=== PATIENT | female | born 1990 | race Caucasian/White ===

== ENCOUNTER 2020-03-01 08:30 | Outpatient (CLI) | payer OTHER, SELFPAY ==
--- NOTE | 2020-03-03 08:27 | WPDHOLTEREM ---
Holter/Event Monitor Holter/Event Monitor Date of procedure: 03/01/20 Procedure Type: 24 hour holter monitor Indications: Chest pain Conclusion: 1. 24 hour holter monitor on 03/01/20. 2. Underlying rhythm is sinus rhythm. HR range 55-160 bpm; average HR 88 bpm. 3. No premature supraventricular complexes. No supraventricular tachycardia. 4. No premature ventricular complex. No ventricular tachycardia. 5. No sinioatrial or atrioventricular blocks. No significant pauses greater than 2 seconds. 6. No symptoms available for correlation.
== END 2020-03-01 08:31 | disposition home or self-care (01) ==
PROVIDERS: PCP Nurse Practitioner Family; Visit Provider Nurse Practitioner Family
DX: R07.9 Chest pain, unspecified (principal)
CPT/HCPCS: 93225; 93226

== ENCOUNTER 2020-03-23 08:57 | Outpatient (CLI) | payer OTHER, SELFPAY ==
[2020-03-23 09:08] LABS: Add Urine Microscopic? YES; Appearance Urine Clear (Clear); Bilirubin Urine Negative (Negative); Blood Urine 2+ (Negative); Color Urine Yellow (Yellow); Glucose Urine UA Negative (Negative); Ketones Urine Negative (Negative); Leukocyte Esterase Ur Negative LEU/UL (Negative); Nitrate Urine Negative (Negative); Protein Urine Negative (Negative); Specific Grav Ur 1.025 (1.010-1.020); Urobilinogen Urine 0.2 mg/dL (0.2-1.0)
[2020-03-23 09:13] LABS: Squamous Epithelial Cell Urine Moderate /hpf (Few); WBC Urine 0-3 /hpf (0-3)
[2020-03-23 09:14] LABS: Bacteria Urine Trace /hpf
== END 2020-03-23 08:58 | disposition home or self-care (01) ==
LOC: CHSLAB 08:59
PROVIDERS: PCP Nurse Practitioner Family; Visit Provider Obstetrics & Gynecology
DX: R30.9 Painful micturition, unspecified (principal)
CPT/HCPCS: 81001

== ENCOUNTER 2020-03-29 10:18 | Outpatient (CLI) | payer OTHER, SELFPAY ==
[2020-03-29 21:13] LABS: SARS-CoV-2 RNA PCR Positive
== END 2020-03-29 10:19 | disposition home or self-care (01) ==
PROVIDERS: PCP Nurse Practitioner Family; Visit Provider Nurse Practitioner Family
DX: U07.1 COVID-19 (principal); R05 Cough
CPT/HCPCS: 87635; C9803; U0003

== ENCOUNTER 2020-04-16 10:39 | Outpatient (CLI) | payer OTHER, SELFPAY ==
[2020-04-16 11:06] LABS: Appearance Urine Clear (Clear); Bilirubin Urine Negative (Negative); Color Urine Yellow (Yellow); Glucose Urine UA Negative (Negative); Ketones Urine Negative (Negative); Leukocyte Esterase Ur Negative LEU/UL (Negative); Nitrate Urine Negative (Negative); Protein Urine Negative (Negative); Urobilinogen Urine 0.2 mg/dL (0.2-1.0)
[2020-04-16 11:13] LABS: Add Urine Microscopic? YES; Blood Urine Trace-Intact (Negative)
[2020-04-16 11:14] LABS: Bacteria Urine Trace /hpf; RBC Urine 0-2 /hpf (0-2); Squamous Epithelial Cell Urine Rare /hpf (Few); WBC Urine None seen /hpf (0-3)
== END 2020-04-16 10:40 | disposition home or self-care (01) ==
LOC: CHSLAB 10:43
PROVIDERS: PCP Nurse Practitioner Family; Visit Provider Obstetrics & Gynecology
DX: N39.0 Urinary tract infection, site not specified (principal)
CPT/HCPCS: 81001

== ENCOUNTER 2021-06-13 12:46 | Outpatient (CLI) | payer OTHER, SELFPAY ==
[2021-06-13 13:50] LABS: Influenza A QL RT-PCR Negative (Negative); Influenza B QL RT-PCR Negative (Negative); SARS-CoV-2 RNA PCR Negative (Negative)
== END 2021-06-13 12:47 | disposition home or self-care (01) ==
LOC: CHSLAB 12:48
PROVIDERS: PCP Nurse Practitioner Family; Visit Provider Nurse Practitioner Family
DX: R05.9 Cough, unspecified (principal); Z20.822 Contact with and (suspected) exposure to COVID-19
CPT/HCPCS: 87502; C9803; U0003; U0005

== ENCOUNTER 2021-09-26 12:54 | Outpatient (CLI) | payer OTHER, SELFPAY ==
[2021-09-26 14:01] LABS: HIV 1 P24 AG Negative (Negative); HIV 1/2 AB Negative (Negative)
[2021-09-28 15:00] LABS: RPR Screen Non-Reactive (Non-Reactive)
[2021-09-29 17:40] LABS: HSV 1 IgM Screen Negative (Negative); HSV 2 IgM Screen Negative (Negative)
[2021-09-29 19:54] LABS: Hepatitis B Surface Antigen Nonreactive (Nonreactive); Hepatitis C Signal to Cutoff 0.01 ratio (<1.00); Hepatitis C Virus Antibody Nonreactive (Nonreactive)
== END 2021-09-26 12:55 | disposition home or self-care (01) ==
LOC: CHSLAB 12:56
PROVIDERS: PCP Nurse Practitioner Family; Visit Provider Obstetrics & Gynecology
DX: A64 Unspecified sexually transmitted disease (principal)
CPT/HCPCS: 36415; 86592; 86695; 86696; 86703

== ENCOUNTER 2021-10-07 14:29 | Outpatient (CLI) | payer OTHER, SELFPAY ==
[2021-10-07 15:21] LABS: SARS-CoV-2 RNA PCR Negative (Negative)
== END 2021-10-07 14:30 | disposition home or self-care (01) ==
LOC: CHSLAB 14:31
PROVIDERS: PCP Nurse Practitioner Family; Visit Provider Nurse Practitioner Family
DX: R09.81 Nasal congestion (principal); Z20.822 Contact with and (suspected) exposure to COVID-19
CPT/HCPCS: C9803; U0003; U0005

== ENCOUNTER 2021-10-17 14:35 | Outpatient (CLI) | payer OTHER, SELFPAY | END 2021-10-17 14:36 | disposition home or self-care (01) | LOC: CHSLAB 14:37 | PROVIDERS: PCP Nurse Practitioner Family; Visit Provider Obstetrics & Gynecology | DX: Z11.3 Encounter for screening for infections with a predominantly sexual mode of transmission (principal) | CPT/HCPCS: 87491; 87591; 87661 ==

== ENCOUNTER 2022-04-03 11:15 | Outpatient (CLI) | payer OTHER, SELFPAY ==
[2022-04-03 11:29] LABS: Appearance Urine Clear (Clear); Bilirubin Urine Negative (Negative); Blood Urine 2+ (Negative); Glucose Urine UA Negative (Negative); Ketones Urine Negative (Negative); Leukocyte Esterase Ur 2+ (Negative); Nitrate Urine Positive (Negative); Protein Urine Negative (Negative); Specific Grav Ur <= 1.005 (1.010-1.020); Urobilinogen Urine 0.2 mg/dL (0.2-1.0); pH Urine 6.5 (5.0-8.0)
[2022-04-03 11:37] LABS: Add Urine Microscopic? YES; Bacteria Urine 3+ /hpf; Color Urine Light Yellow (Yellow); Squamous Epithelial Cell Urine Few /hpf (Few)
== END 2022-04-03 11:16 | disposition home or self-care (01) ==
PROVIDERS: PCP Family Medicine; Visit Provider Family Medicine
DX: M54.50 Low back pain, unspecified (principal)
CPT/HCPCS: 81001; 87077; 87086; 87088; 87186

== ENCOUNTER 2022-04-05 09:38 | Outpatient (CLI) | payer OTHER, SELFPAY ==
[2022-04-05 10:07] VITALS: BMI 25.7
[2022-04-05 10:14] VITALS: BP 106/64; PULSE 87; RESP 18; TEMP 36.4; O2SAT 100
[2022-04-05 10:21] LABS: Hematocrit 38.2 % (35.0-49.0); Hemoglobin 12.7 g/dL (12.0-15.0); Mean Corpuscular HGB Conc 33.2 g/dL (32.0-36.0); Mean Corpuscular Hemoglobin 29.5 pg (27.0-31.0); Mean Corpuscular Volume 88.8 fL (78.0-102.0); Mean Platelet Volume 9.7 fl (9.2-11.8); Platelet Count Result 396 K/mm3 (150-420); Red Cell Distribution Width 11.9 % (11.6-14.4); White Blood Count 5.3 K/mm3 (4.8-10.8)
[2022-04-05] MEDS: SODIUM CHLORIDE 0.9% IV 1,000 ML 1000 ML IVPB ×2 (10:30→11:31)
[2022-04-05 10:40] LABS: Lactic Acid 1.2 mmol/L (0.4-2.0)
--- NOTE | 2022-04-05 10:54 | PC.NURSE ---
Patient here for 2 L NS IV and IV Rocephin for pyelonephritis. Education given. No concerns. IV NS 1000 ml/hr started. IV Rocephin IV administered. SEE AUG.
--- NOTE | 2022-04-05 10:56 | PC.NURSE ---
Patient reports being nauseated and did have emesis. Call to Dr. Leyva. Awaiting return call from him.
[2022-04-05 11:02] LABS: Alanine Aminotransferase 21 U/L (14-59); Albumin Level 3.5 g/dL (3.4-5.0); Alkaline Phosphatase 28 U/L (46-116); Anion Gap 7 mmol/L (8-16); Aspartate Amino Transferase 13 U/L (15-37); Bilirubin,Total 0.3 mg/dL (0.00-1.00); Blood Urea Nitrogen 7 mg/dL (7-18); Calcium 8.8 mg/dL (8.5-10.1); Carbon Dioxide 30 mmol/L (21-32); Chloride 103 mmol/L (98-108); Estimated CRCL calculation 79 ml/min; Estimated Glomerular Filt Rate > 60; Glucose 90 mg/dL (70-99); Osmolality Calculated 288 mOsm/kg (285-295); Potassium 4.5 mmol/L (3.5-5.1); Sodium 140 mmol/L (136-145); Total Protein 7.1 g/dL (6.4-8.2)
[2022-04-05] MEDS: ONDANSETRON INJ 4 MG/2 ML VIAL IV PUSH (11:11)
--- NOTE | 2022-04-05 11:11 | PC.NURSE ---
Return call from Dr. Leyva. Zofran 4 mg IVP x1 ordered and administered. See Aug.
--- NOTE | 2022-04-05 12:50 | PC.NURSE ---
Nausea subsided. Was able to eat crackles with chicken noddle soup.
--- NOTE | 2022-04-05 13:37 | PC.NURSE ---
Tolerated lunch and treatment well. Reports she feels better. Safe exit of hospital. Will returning to Dr. Leyva's office for follow up.
== END 2022-04-05 09:39 | disposition home or self-care (01) ==
PROVIDERS: PCP Family Medicine; Visit Provider Family Medicine
DX: N12 Tubulo-interstitial nephritis, not specified as acute or chronic (principal); M54.50 Low back pain, unspecified
CPT/HCPCS: 36415; 80053; 83605; 85027; 87040; 96360; 96361; 96365; 96375; J0696

== ENCOUNTER 2023-01-08 10:30 | Outpatient (CLI) | payer OTHER, SELFPAY ==
--- NOTE | ~2023-01-08 | XR_ITS ---
AP and lateral views of the right hip Clinical history: Pain Findings: No acute fracture or dislocation is seen. Osseous alignment is anatomic. The right hip join t and right SI joint are preserved. Soft tissues are unremarkable. IUD in place. Impression: No significant abnormality is seen. Reviewed, dictated and finalized at location . Impression: No significant abnormality is seen.
[2023-01-08 11:23] LABS: Alanine Aminotransferase 14 U/L (14-59); Alkaline Phosphatase 28 U/L (46-116); Anion Gap 10 mmol/L (8-16); Aspartate Amino Transferase 20 U/L (15-37); Bilirubin,Total 0.6 mg/dL (0.00-1.00); Blood Urea Nitrogen 8 mg/dL (7-18); Carbon Dioxide 28 mmol/L (21-32); Chloride 104 mmol/L (98-108); Estimated Glomerular Filt Rate > 60; Free T4 Free Thyroxine 0.92 ng/dL (0.76-1.46); Glucose 100 mg/dL (70-99); Osmolality Calculated 292 mOsm/kg (285-295); Potassium 4.1 mmol/L (3.5-5.1); Sodium 142 mmol/L (136-145); Total Protein 7.1 g/dL (6.4-8.2)
== END 2023-01-08 10:31 | disposition home or self-care (01) ==
LOC: CHSLAB 10:32
PROVIDERS: PCP Nurse Practitioner Family; Visit Provider Nurse Practitioner Family
DX: R53.83 Other fatigue (principal); M25.559 Pain in unspecified hip
CPT/HCPCS: 36415; 73502; 80053; 84439; 84443

== ENCOUNTER 2023-03-19 12:49 | Outpatient (CLI) | payer OTHER, SELFPAY ==
[2023-03-19 13:49] LABS: Influenza A QL RT-PCR Negative (Negative); Influenza B QL RT-PCR Negative (Negative); SARS-CoV-2 RNA PCR Positive (Negative)
== END 2023-03-19 12:50 | disposition home or self-care (01) ==
LOC: CHSLAB 12:51
PROVIDERS: PCP Nurse Practitioner Family; Visit Provider Nurse Practitioner Family
DX: R05.9 Cough, unspecified (principal); R09.89 Other specified symptoms and signs involving the circulatory and respiratory systems
CPT/HCPCS: 87636

== ENCOUNTER 2025-03-26 15:07 | Outpatient (CLI) | payer OTHER, SELFPAY ==
--- OUTSIDE RECORDS SUMMARY | 2024-12-23 06:45 | XMS_ITS ---
Author Organization [facility] As [employer] [facility] Address [facility] [address] [address] Care Team Providers Care Heating And Ventilating Tender Name Role Phone Bhavik Su Unavailable [phone] REASON FOR VISIT Follow Up Social History Sex Assigned At : Social History Observation Description Sex Assigned At Female Encounters Encounter Location Date Provider Diagnosis [facility] [employer] [facility] [place] [address] [address] [address] 12/23/2024 Bhavik Su Plan Of Treatment No Information Progress Notes * [place] MCKEONSTANOB:1990 (34 yo F)Acc No.[id number]:12/23/2024 Patient: THUAN ROONEY Provider: LENCHO CARRILLO :1990 A ge:34 Y S ex:Female Date:12/23/2024 Phone: Address:[address] [place], [place] [phone] Subjective: * Chief Complaints: * F ollow Up Billing Information: * Procedure Codes: * Electronic signature of LENCHO Sims on 03/26/2025 at 05:23 PM CDT Sign off status: Pending * Provider: LENCHO CARRILLO Date: 12/23/2024 Generated for Jonah lombardo/Trini/eTransmitting on: 0 03/26/2025 05:23 PM CDT
--- OUTSIDE RECORDS SUMMARY | 2025-02-02 11:15 | XMS_ITS ---
Author Organization [facility] As [employer] [facility] Address [facility] [address] [address] Care Team Providers Care Assistant Director Of Plant Operations Name Role Phone Bhavik Su Unavailable [phone] REASON FOR VISIT follow up Social History Sex Assigned At : Social History Observation Description Sex Assigned At Female Encounters Encounter Location Date Provider Diagnosis [facility] [place] [address] [address] [address] 02/02/2025 Bhavik Su Plan Of Treatment No Information Progress Notes * [place]IR[place] MCKEONSTANOB:1990 (34 yo F)Acc No.[id number]:02/02/2025 Patient: THUAN ROONEY Provider: LENCHO CARRILLO :1990 A ge:34 Y S ex:Female Date:02/02/2025 Phone: Address:[address] [place], [place] [phone] Subjective: * Chief Complaints: * F ollow up Billing Information: * Procedure Codes: * Electronic signature of LENCHO Sims on 03/26/2025 at 05:23 PM CDT Sign off status: Pending * Provider: LENCHO CARRILLO Date: 02/02/2025 Generated for Jonah lombardo/Trini/eTransmitting on: 0 03/26/2025 05:23 PM CDT
--- OUTSIDE RECORDS SUMMARY | 2025-03-26 17:23 | XMS_ITS | Patient Health Record ---
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 discontinued due to side effects and concerns about drug interactions. No evidence of bipolar disorder or borderline personality disorder noted during this encounter. Plan: - Start lamotrigine 25 mg PO daily for 2 weeks, then increase to 50 mg PO daily (2 x 25 mg tablets) - Informed patient about potential side effects, including risk of Vasquez-Mike syndrome - Instructed patient to monitor for rash, especially around mucous membranes, and report immediately if occurs - Hold Auvelity - Consider adding an antidepressant in combination with stimulant medication in the future if needed - Schedule follow-up appointment in 1 month - Complete FMLA documentation for episodes of depression and anxiety (3 times per month, 3 days per episode) Attention Deficit Hyperactivity Disorder (ADHD) Assessment: Patient is currently taking Vyvanse for ADHD management. Reported one instance of taking Vyvanse with Auvelity, resulting in feeling hot, red, and shaky. ADHD testing has not been previously completed at this clinic. Plan: - Continue Vyvanse 20 mg (current dose) - Schedule ADHD testing at the clinic - Patient to sign release for transfer of previous ADHD-related medical information the note is transcribed using speech recognition software. It is a reflection of a visit with the patient. It might have some inaccuracy, including medication names and transcribing errors, though efforts have been made to correct them. Plan Of Treatment Future Test Test Name Order Date ADHD Testing 11/11/2024 Insurance Providers Payer Name Payer Address Payer Phone Subscriber Number Group Number Insured Name Patient Relationship to Insured Coverage Start Date Coverage End Date [employer] [address] [place] [address] [id number] THUAN ALFARO Self - patient is the insured Medical (General) History Medical History History ICD Code Past Psychiatric History: Anxiety Disord er,PTSD,Major Depressive Episode abdominal aortic aneurysm: No atrial fibrillation: No chronic fatigue syndrome: No essential tremor: No hyperlipidemia: No hypertension: No Parkinson's disease: No restless leg syndrome: No stroke: No subdural hematoma: No type 1 diabetes mellitus: No type 2 diabetes mellitus: No vitamin B12 deficiency: No vitamin D deficiency: No migraine headaches hip dysplasia Surgical History Surgery Date(Month/Year) dermoid cyst removed right ovary Hospitalization History Reason Date(Month/Year) at 15 years old, inpatient [facility] for SI
--- OUTSIDE RECORDS SUMMARY | 2025-03-26 17:23 | XMS_ITS | Clinical Summary ---
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 Gender Identity Not on file Sexual Orientation Not on file Last Filed Vital Signs Vital Sign Reading Time Taken Comments Blood Pressure 132/96 04/30/2019 6:20 PM CDT Pulse 87 04/30/2019 6:20 PM CDT Temperature 36.9 C (98.4 F) 04/30/2019 12:41 PM CDT Respiratory Rate 15 04/30/2019 6:20 PM CDT Oxygen Saturation 99% 04/30/2019 6:20 PM CDT Inhaled Oxygen Concentration - - Weight 60.3 kg (132 lb 15 oz) 04/30/2019 12:41 P M CDT Height 162.6 cm (5' 4) 04/30/2019 12:41 PM CDT Body Mass Index 22.82 04/30/2019 12:41 PM CDT Plan of Treatment Health Maintenance Due Date Last Done Comments Cervical Cancer Screening Pa p Smear (Age 30 to 64) Every 3 Years 1992 Annual Physical 1995 Hepatitis C 2010 DTaP, Tdap and Td Vaccines ( 1 - Tdap) 2011 Hepatitis B Vaccines (1 of 3 - 19+ 3-dose series) 2011 HPV Vaccines (1 - 3-dose SCD M series) 2019 Cervical Cancer Screening Pa p with HPV Testing (Age 30 to 64) Every 5 Years 2022 Cervical Cancer Screening with HPV 2022 COVID-19 Vaccine (2023-2 5 season) 2025 Meningococcal B Vaccine Aged Out No l onger eligible based on patient's age to complete this topic Meningococcal Vaccine Aged Out No lizzy namita eligible based on patient's age to complete this topic Pneumococcal Vaccine: Pediat rics (0 to 5 Years) and At-Risk Patients (6 to 49 Years) Aged Out No longer eligible b ased on patient's age to complete this topic RSV Immunizations Under 20 Months Aged Out No longer eligible based on patient's age to complete this topic Insurance Care Teams Avionics Technician Relationship Specialty Start Date End Date New Referring, Provider PCP - General UNKNOWN PHYSICIAN SPECIALTY 04/30/19
--- OUTSIDE RECORDS SUMMARY | 2025-03-26 17:23 | XMS_ITS | Clinical Summary ---
Author Organization [facility] Address [address] [place] [address] Care Team Providers Care Skip Loader Name Role Phone Emma Sueholly Lowe APRN-GLAZE WIPER Primary Care Provider Source Comments [facility],non-owned Affiliates and Associated Physician Practices is amultiple site organization consisting of ambulatory clinics and hospital sitesin [place], [place], [place] and [place]. This disclosure is being madepursuant to the Care Everywhere program and may not contain all information available regarding this patient. Last updated 18.[facility] Allergies No known active allergies Medications * Be aware that medications may not be up to date on this document. Alwaysverify current medications with the patient. levonorgestrel (Mirena) 20 MCG/DAY IUD by Intrauterine route as directed Active lisdexamfetamin e (Vyvanse) 20 MG capsule Take 1 (one) capsule by mouth once daily Active albuterol HFA (Proventil; Ventolin; Proair) 108 (90 Base) MCG/ACT inhalerIndicati ons:Viral URI with cough Inhale 2 (two) puffs by mouth every 4 hours as needed for Shortness of Breath, Wheezing or Cough Please dispense whichever albuterol is better covered by insurance 8.5 g 04/04/2024 2:56 PM CDT Active ubrogepant (Ubrelvy) 50 MG tabletIndicatio ns:Intractable migraine with aura without status migrainosus Take 1 (one) tablet by mouth daily as needed - may repeat one time for Migraine Maximum daily dose: 200mg/24 hours 8 tablet 11 10/16/2024 2:32 PM CDT 4 04/04/20 Active chlorhexidine gluconate (Hibiclens) 4 % solution Apply to affected area once daily Apply body wash once daily then wash off after 5 minutes. You may do this for several weeks. 473 mL 2 04/14/2024 1:12 PM CDT 4 Active Dextromethorpha n-buPROPion ER (Auvelity) 45-105 MG TBCR 1 tablet Orally twice a day for 30 days 5 Active doxycycline hyclate 100 MG tabletIndicatio ns:Acne Vulgaris Take 1 (one) tablet by mouth 2 times daily Reasons: Common Acne 60 tablet 2 09/19/2024 11:08 AM CDT 5 Active mupirocin (Bactroban) 2 % ointmentIndicat ions:Other specified follicular disorders Apply to nares, behind ears, axillae, groin, gluteal cleft, gluteal folds twice daily x 5 days. Repeat monthly. 30 g 2 09/19/2024 11:08 AM CDT 5 Active tretinoin (Retin-A) 0.025 % creamIndication s:Acne vulgaris Apply pea sized amount to entire face at night 45 g 2 09/19/2024 11:08 AM CDT 5 Active spironolactone (Aldactone) 100 MG tabletIndicatio ns:Acne vulgaris,Female pattern hair loss Take 1/2 tablet by mouth once daily for 2 weeks, if tolerating increase to 1 tablet once daily until follow up. 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 Recurrent infections 06/19/2024 Dyspepsia 06/19/2024 History of streptococcal infection 06/19/2024 Chronic bacterial skin infection 05/22/2024 Other fatigue 05/22/2024 Acute cough 06/04/2023 Well adult exam 04/17/2023 Depression 04/17/2023 Chest pain 04/17/2023 Anxiety 12/08/2022 12/08/2022 Irregular periods 12/08/2022 12/08/2022 Pain in pelvis 12/08/2022 12/08/2022 Family history of congenital or genetic conditio n 05/26/2014 Family history of multiple miscarriages or still births 04/13/2014 Attention deficit disorder (ADD) without hyperac tivity 04/26/2012 12/08/2022 Overview (12/08/2022): ADD (attention deficit disorder) 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 06/0 03/2023 Overview (12/08/2022): Hip dysplasia Immunizations Immunization Administration Dates Next Due DTP, HISTORIC VACCINE 12/09/1993, 993,1992,1992 HEP B VACCINE, ADULT 3 DOSE 06/22/1993, 3,1992 HIB VACCINE 09/21/1993, 3,1992,1992 INFLUENZA VACCINE, QUADR. (F LUZONE; FLULAVAL; FLUARIX; AFLURIA QUADRIVALENT; 6MO+), 0.5 ML (IIV4) 05/20/2022,04/21/2021,04/23/2020 INFLUENZA VACCINE, TRIV. (FL UZONE; FLULAVAL; FLUARIX; AFLURIA TRIVALENT; 6MO+), 0.5 ML (IIV3) 06/04/2024 MMR VACCINE 09/21/1993 POLIO OPV 12/09/1993,1992,1992 TDAP, HISTORIC VACCINE 07/17/2019,09/02/2014 Family History Medical History Relation Name Comments Alzheimer's Disease Maternal Grandmother Heart Failure Paternal Grandfather Cancer - Uterine Paternal Grandmother Seizures Paternal Grandmother Relation Name Status Comments Maternal Grandmother Paternal Grandfather Paternal Grandmother Social History Tobacco Use Types Packs/Day Years Used Date Smoking Tobacco: Never Smokeless Tobacco: Never Tobacco Cessation:Counseling Given: Not Answered Alcohol Use Standard Drinks/Week Comments No 0 (1 standard drink = 0.6 oz pur e alcohol) socially PHQ-2 Answer Date Recorded Patient Health Questionnaire-2 Score 0 06/10/2024 Comments No Sex and Gender Information Value Date Recorded Sex Assigned at Not on file Legal Sex Female 5:39 AM 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 Gender Identity Not on file Sexual Orientation Not on file 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 Not on file Not on file Last Filed Vital Signs Vital Sign Reading Time Taken Comments Blood Pressure 121/82 10/27/2024 3:57 PM CDT Pulse 93 10/27/2024 3:57 PM CDT Temperature 36.2 C (97.1 F) 06/19/2024 10:07 AM 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 Respiratory Rate 18 06/19/2024 10:07 AM 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 Oxygen Saturation 98% 10/27/2024 3:57 PM CDT Inhaled Oxygen Concentration - - Weight 63 kg (139 lb) 10/27/2024 3:57 PM CDT Height 165.1 cm (5' 5) 10/27/2024 3:57 PM CDT Body Mass Index 23.13 10/27/2024 3:57 PM CDT Plan of Treatment Upcoming Encounters Date Type Department Care Team (Late st Contact Info) Description 10/26/2025 4:00 PM CDT Office Visit [facility] - Neurology [address] [facility] [place] [phone] Toney Wolfe, JAVA ENGINEER-GLAZE WIPER [facility] [place] [address] Health Maintenance Due Date Last Done Comments PAP SMEAR 2013 HPV VACCINE (1 - 3-dose SCDM series) 2019 DEPRESSION SCREENING 07/02/2024 01/28/2024, 04/17/20 23 COVID-19 VACCINE ( season) 2025 03/17/2021, 02/17/2021 INFLUENZA VACCINE (#1) 2025 , 05/20/2022, 04/21/2021, Additional history exists DTAP/TDAP/TD VACCINES (7 - Td or Tdap) 07/17/2029 07/17/2019, 09/02/2014, 12/09/1993, Additional history exists ZOSTER VACCINE (1 of 2) 2042 HEPATITIS B VACCINE Completed 06/22/1993, 1992, 1992 HIB VACCINE Completed 09/21/1993, 10/31, 1992, Additional history exists HEPATITIS C SCREENING Completed 04/10/2024 HIV SCREENING Completed 04/10/2024 MENINGOCOCCAL (Group B) VACCINE SHARED DECISION-MAKING Aged Out No longer eligible based on patient's age to complete this topic MENINGOCOCCAL GROUPS A/C/Y/W VACCINE Aged Out No longer eligible based on patient's age to complete this topic PNEUMOCOCCAL VACCINE Aged Out No long er eligible based on patient's age to complete this topic Procedures Procedure Name Priority Date/Time Associated Diagnosis Comments HEPATITIS C ANTIBODY Routine 04/10/2024 10:40 AM CDT Encounter to establish care with new doctor HIV-1 HIV-2 ANTIBODY + HIV P24 AG PANEL Routine 04/10/2024 10:40 AM CDT Encounter to establish care with new doctor from Last 3 Months or Most Recently Relevant to Health Maintenance Results * HIV-1 HIV-2 ANTIBODY + HIV P24 AG PANEL (04/10/2024 10:40 AM CDT) HIV Antigen/Antibod y 1 & 2 Non-reacti ve Non-react peter 04/10/2024 1:[address] [facility] Comment:No Laboratory eviden ce of HIV infection. Blood BLOOD SPECIMEN / Unknown Lab Venipuncture / Unknown 04/10/2024 10:40 AM CDT 04/10/2024 12:14 PM CDT us Sunshine Sue JAVA ENGINEER-GLAZE WIPER LAB - CHEMISTRY ORDERAB LES Final Result Performing Organization Address [facility] Co de Phone Number [place] [phone] [place] [address], [facility] [phone] * HEPATITIS C ANTIBODY (04/10/2024 10:40 AM CDT) Hepatitis C Antibody Non-react peter Non-reac tive 04/10/2024 1:44 PM CDT [facility] Comment:Hepatitis C Antibody screen indicates no serologic evidence of past or current infection with Hepatitis C Virus. Patients with unexplained liver disease who are immunocompromised or suspected of having acute Hepatitis C infection may benefit from Nucleic Acid Test (EDILBERTO) for Hepatitis C Viral RNA to confirm Hepatitis C status. Blood BLOOD SPECIMEN / Unknown Lab Venipuncture / Unknown 04/10/2024 10:40 AM CDT 04/10/2024 12:14 PM CDT Sunshine CASANOVA LAB - CHEMISTRY ORDERAB LES Final Result Performing Organization Address [facility] Co de Phone Number [address] [address], [facility] [phone] from Last 3 Months or Most Recently Relevant to Health Maintenance Care Teams Skip Loader Relationship Specialty Start Date End Date Sunshine Sue APRN-CNP [address] [facility] [place] [address] PCP - General Nurse Practitioner Family 04/17/23
[2025-03-31 15:09] LABS: Free Testosterone (Direct) 0.9 pg/mL (0.0-4.2)
== END 2025-03-26 15:08 | disposition home or self-care (01) ==
LOC: ANHLAB 15:09
PROVIDERS: Visit Provider Student in an Organized Health Care Education/Training Program
DX: L68.0 Hirsutism (principal); Z30.9 Encounter for contraceptive management, unspecified
CPT/HCPCS: 82627; 84402; 84403

== ENCOUNTER 2025-04-06 14:55 | Outpatient (CLI) | payer OTHER, SELFPAY ==
[2025-04-06 15:19] LABS: Hematocrit 42.6 % (35.0-49.0); Hemoglobin 14.3 g/dL (12.0-15.0); Immature Granulocyte Percent A 0.7 % (0.0-0.0); Lymphocytes Absolute Auto 1.58 K/mm3 (1.10-4.50); Mean Corpuscular HGB Conc 33.6 g/dL (32-36); Mean Corpuscular Hemoglobin 30.3 pg (27.0-31.0); Mean Corpuscular Volume 90.3 fL (78.0-102.0); Nucleated Red Blood Cells Absolute Auto 0.00 K/mm3 (0.00-0.00); Nucleated Red Blood Cells Perc 0.0 % (0-0.0); Platelet Count Result 336 K/mm3 (150-420); Red Blood Count 4.72 M/mm3 (4.20-5.40); White Blood Count 9.6 K/mm3 (4.8-10.8)
[2025-04-06 15:20] LABS: Add Urine Microscopic? NO; Appearance Urine Clear (Clear); Glucose Urine UA Negative (Negative); Leukocyte Esterase Ur Negative LEU/UL (Negative); Nitrate Urine Negative (Negative); Specific Grav Ur 1.010 (1.010-1.020)
[2025-04-06 15:33] LABS: Iron 95 ug/dL (37-170)
[2025-04-06 15:34] LABS: Alanine Aminotransferase 16 U/L (6-35); Albumin Level 4.6 g/dL (3.5-5.1); Alkaline Phosphatase 27 U/L (38-126); Anion Gap 8 mmol/L (4-12); Aspartate Amino Transferase 21 U/L (14-36); Bilirubin,Total 0.5 mg/dL (0.2-1.3); Blood Urea Nitrogen 16 mg/dL (7-17); Calcium 9.7 mg/dL (8.4-10.2); Carbon Dioxide 30 mmol/L (22-30); Chloride 103 mmol/L (98-107); Estimated Glomerular Filt Rate > 60; Magnesium 2.0 mg/dL (1.6-2.3); Osmolality Calculated 291 mOsm/kg (285-295); Potassium 4.2 mmol/L (3.4-5.0); Sodium 141 mmol/L (137-145); Total Protein 7.7 g/dL (6.3-8.2)
--- OUTSIDE RECORDS SUMMARY | 2025-04-06 15:39 | XMS_ITS | Clinical Summary ---
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
--- OUTSIDE RECORDS SUMMARY | 2025-04-06 15:39 | XMS_ITS | Clinical Summary ---
Author Organization [facility] Address [address] [facility] [address] Care Team Providers Care Commercial Specialist Name Role Phone Emma Sueholly Lowe APRN-CASTING COORDINATOR Primary Care Provider Source Comments [facility],non-owned Affiliates and Associated Physician Practices is amultiple site organization consisting of ambulatory clinics and hospital sitesin [place], [place], [place] and [place]. This disclosure is being madepursuant to the Care Everywhere program and may not contain all information available regarding this patient. 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 on file Not on file Last Filed Vital Signs Vital Sign Reading Time Taken Comments Blood Pressure 121/82 10/27/2024 3:57 PM CDT Pulse 93 10/27/2024 3:57 PM CDT Temperature 36.2 C (97.1 F) 06/19/2024 10:07 AM OUTSIDE MACHINIST Respiratory Rate 18 06/19/2024 10:07 AM OUTSIDE MACHINIST Oxygen Saturation 98% 10/27/2024 3:57 PM CDT Inhaled Oxygen Concentration - - Weight 63 kg (139 lb) 10/27/2024 3:57 PM CDT Height 165.1 cm (5' 5) 10/27/2024 3:57 PM CDT Body Mass Index 23.13 10/27/2024 3:57 PM CDT Plan of Treatment Upcoming Encounters Date Type Department Care Team (Late st Contact Info) Description 10/26/2025 4:00 PM CDT Office Visit [facility] - Neurology [address] [place] [address], [facility] [place] [phone] Toney Wolfe, VILLA-CASTING COORDINATOR [address] [place] [address] Health Maintenance Due Date Last [...] ve Non-react peter 04/10/2024 1:44 PM CDT [facility] Comment:No Laboratory eviden ce of HIV infection. Blood BLOOD SPECIMEN / Unknown Lab Venipuncture / Unknown 04/10/2024 10:40 AM CDT 04/10/2024 12:14 PM CDT Sunshine Sue CONTROL OPERATOR-CASTING COORDINATOR LAB - CHEMISTRY ORDERAB LES Final Result Performing Organization Address [facility] Co de Phone Number [address] [address], [facility] [phone] * HEPATITIS C ANTIBODY (04/10/2024 10:40 AM CDT) Hepatitis C Antibody Non-react peter Non-reac tive 04/10/2024 1:[address] [facility] Comment:Hepatitis C Antibody screen indicates no serologic [...] ORDERAB LES Final Result Performing Organization Address [facility] Co de Phone Number [address] [address], [facility] [phone] from Last 3 Months or Most Recently Relevant to Health Maintenance Care Teams Commercial Specialist Relationship Specialty Start Date End Date Sunshine Sue APRN-CNP [address] OF [facility] [place] [address] PCP - General Nurse Practitioner Family 04/17/23
[2025-04-06 15:40] LABS: Glucose 55 mg/dL (65-110)
[2025-04-06 15:43] LABS: Percent Iron Saturation 26 % (20-50)
[2025-04-06 15:52] LABS: Free T4 Free Thyroxine 0.76 ng/dL (0.78-2.19)
[2025-04-06 15:57] LABS: Influenza A QL RT-PCR Negative (Negative); Influenza B QL RT-PCR Negative (Negative); RSV RNA, RT-PCR Negative (Negative); SARS-CoV-2 RNA PCR Negative (Negative)
[2025-04-06 16:05] LABS: Thyroid Stimulating Hormone 1.460 uIU/mL (0.465-4.680)
[2025-04-06 16:09] LABS: Ferritin 40.50 ng/mL (6.24-137)
[2025-04-06 17:24] LABS: Hemoglobin A1C 5.2 % (<5.7)
[2025-04-06 17:31] LABS: Glucose 96 mg/dL (65-110)
[2025-04-07 10:48] LABS: Total Triiodothyronine (T3) 0.931
== END 2025-04-06 14:56 | disposition home or self-care (01) ==
PROVIDERS: PCP Nurse Practitioner Family; Visit Provider Nurse Practitioner Family
DX: R53.83 Other fatigue (principal); R42 Dizziness and giddiness; R50.9 Fever, unspecified; Z79.899 Other long term (current) drug therapy; E16.2 Hypoglycemia, unspecified
CPT/HCPCS: 36415; 80053; 81003; 82306; 82728; 82947; 83036; 83525; 83527; 83540; 83550; 83735; 84439; 84443; 84480; 84681; 85025; 87637

== ENCOUNTER 2025-05-22 12:54 | Outpatient (CLI) | payer OTHER, SELFPAY ==
--- OUTSIDE RECORDS SUMMARY | 2024-07-04 09:00 | XMS_ITS ---
Author Organization [facility] As [employer] [facility] Address [facility] [address] [facility] [[email or web address]] [address] [place] [address] Care Team Providers Care Imager Name Role Phone Bhavik Su Unavailable [phone] REASON FOR VISIT [facility] Social History Sex Assigned At : Social History Observation Description Sex Assigned At Female Encounters Encounter Location Date Provider Diagnosis [facility] [address] [facility] [[email or web address] [address] [place] [address] 07/04/2024 Bhavik Su Plan Of Treatment No Information Progress Notes * [place] MCKEONSTANOB:1990 (34 yo F)Acc No.[id number]:07/04/2024 Patient: THUAN ROONEY Provider: LENCHO CARRILLO :1990 A ge:34 Y S ex:Female Date:07/04/2024 Phone: Address:[address] [place], [place] [address] Subjective: * Chief Complaints: * B [facility] * Electronic signature of LENCHO Sims on 05/22/2025 at 12:58 PM STUDENT TRUCK DRIVER Sign off status: Pending * Provider: LENCHO CARRILLO Date: 0 07/04/2024 Generated for Jonah lombardo/Trini/eTransmitting on: 07/22/2024 12:58 PM STUDENT TRUCK DRIVER
--- OUTSIDE RECORDS SUMMARY | 2024-12-23 05:45 | XMS_ITS ---
Author Organization [facility] As [employer] [facility] Address [facility] [address] [address] Care Team Providers Care Photography And Prints Curator Name Role Phone Bhavik Su Unavailable [phone] REASON FOR VISIT Follow Up Social History Sex Assigned At : Social History Observation Description Sex Assigned At Female Encounters Encounter Location Date Provider Diagnosis [place] [address] [address] [address] 12/23/2024 Bhavik Su Plan Of Treatment No Information Progress Notes * [place] MCKEONSTANOB:1990 (34 yo F)Acc No.[id number]:12/23/2024 Patient: THUAN ROONEY Provider: LENCHO CARRILLO :1990 A ge:34 Y S ex:Female Date:12/23/2024 Phone: Address:[address] [place], [place] [phone] Subjective: * Chief Complaints: * F ollow Up Billing Information: * Procedure Codes: * Electronic signature of LENCHO Sims on 05/22/2025 at 12:58 PM DATA CONVERSION DEVELOPER Sign off status: Pending * Provider: LENCHO CARRILLO Date: 12/23/2024 Generated for Jonah lombardo/Trini/eTransmitting on: 07/22/2024 12:58 PM DATA CONVERSION DEVELOPER
--- OUTSIDE RECORDS SUMMARY | 2025-02-02 10:15 | XMS_ITS ---
Author Organization [facility] As [employer] [facility] Address [facility] [address] [address] Care Team Providers Care Cashier Greeter Name Role Phone Bhavik Su Unavailable [phone] REASON FOR VISIT follow up Social History Sex Assigned At : Social History Observation Description Sex Assigned At Female Encounters Encounter Location Date Provider Diagnosis [place] [address] [address] [address] 02/02/2025 Bhavik Su Plan Of Treatment No Information Progress Notes * [place] MCKEONSTANOB:1990 (34 yo F)Acc No.[id number]:02/02/2025 Patient: THUAN ROONEY Provider: LENCHO CARRILLO :1990 A ge:34 Y S ex:Female Date:02/02/2025 Phone: Address:[address] [place], [place] [phone] Subjective: * Chief Complaints: * F ollow up Billing Information: * Procedure Codes: * Electronic signature of LENCHO Sims on 05/22/2025 at 12:58 PM FLEXOGRAPHIC PRESS HELPER Sign off status: Pending * Provider: LENCHO CARRILLO Date: 0 02/02/2025 Generated for Jonah lombardo/Trini/eTransmitting on: 1 07/22/2024 12:58 PM FLEXOGRAPHIC PRESS HELPER
--- NOTE | ~2025-05-22 | MR_ITS ---
EXAM/PROCEDURE: MR brain/brain stem wo/w con HISTORY: attention to brainstem COMPARISON: May 03, 2019 TECHNIQUE: Pre and postcontrast enhanced brain MRI performed FINDINGS: 5 mm focal hyperintense T2-weighted focus present in the high left periventricular white matter image 19 series 5. No other suspicious lesions seen on T2-weighted sequencing. No abnormal areas of enhancement or enhancing lesions on postcontrast series. Brainstem and cerebellum appear normal. In particular, no acute ischemic event, mass or abnormal enhancement within the brainstem or cerebellum. Para orbital paranasal caliber structures unremarkable. No bleed on gradient echo sequences. Vascular flow voids patent at skull base. IMPRESSION: Solitary subcentimeter focus of hyperintense T2-weighted signal in the high left parietal/periventricular white matter, possibly representing very small area of demyelination. No acute ischemia, hemorrhage or other areas of abnormal enhancement. Reviewed, dictated and finalized at location A. S WRITER IMPRESSION: Solitary subcentimeter focus of hyperintense T2-weighted signal in the high lef t parietal/periventricular white matter, possibly representing very small area of demyelination. No acute ischemia, hemorrhage or other areas of abnormal enha ncement.
--- OUTSIDE RECORDS SUMMARY | 2025-05-22 12:58 | XMS_ITS | Clinical Summary ---
Author Organization [facility] Address [address] [place] [address] Care Team Providers Care Horticultural Technical Officer Name Role Phone Yolande Rodriguez NP Primary Care Provider [phone] Allergies No known active allergies Medications albuterol HFA (PROVENTIL HFA,VENTOLIN HFA,PROAIR HFA) 90 mcg/actuation inhaler Inhale 2 puffs every 6 (six) hours as needed for wheezing Active norethindrone-e .estradioL-iron (LO LOESTRIN FE) 1 mg-10 mcg (24)/10 mcg (2) tablet per tablet Take 1 tablet by mouth daily Active ubrogepant (Ubrelvy) 50 mg tablet Take 1 tablet (50 mg total) by mouth once as needed for migraine May repeat dose once in 2 hours if no relief. Do not exceed 2 doses in 24 hours. Active blood-glucose sensor device 5 Active ubrogepant (UBRELVY) 50 mg tablet Take 1 tablet (50 mg total) by mouth 4 Active albuterol HFA (PROVENTIL HFA,VENTOLIN HFA,PROAIR HFA) 90 mcg/actuation inhaler Inhale 2 puffs every 4 (four) hours as needed 3 Active azelastine (ASTELIN) 137 mcg (0.1 %) nasal spray Administer 2 sprays into affected nostril(s) 5 Active Active Problems Problem Noted Date Diagnosed Date Low serum alkaline phosphatase 04/27/2025 Assessment & Plan (04/29/2025 1:31 PM CDT): Patient has low alkaline phosphatase in all of her previous labs, her phosphorus and vitamin-D were in good range, will get bone alkaline phosphatase and PTH. If her bone alkaline phosphatase noted to be low, will proceed with serum pyridoxal 5 phosphate [B6] PLP and urine phosphoehanolamine PEA. To confirm her diagnosis. She will also find out if her other family member has low alkaline phosphatase. Orders: Alkaline phosphatase; Future Alkaline phosphatase, bone specific; Future PTH; Future Fatigue 04/27/2025 Assessment & Plan (04/29/2025 1:31 PM CDT): Her orthostasis vitals were negative in the clinic, TFts, IGF and cortisol levels were unremarkable. Vitamin-D and vitamin B12 were in good range according to labs obtained at her primary care's office, Based on current endocrine labs I did not find any endocrine reason for her fatigue. She should work with her primary care for further evaluation of fatigue, Patient complained of Raynaud phenomenon, she would follow up with Rheumatology for that Since he was noted to have low serum alkaline phosphatase in all of her labs that could be a contributing factor but not the sole cause of her fatigue, further evaluation as above. Migraines 04/20/2025 Assessment & Plan (04/22/2025 8:44 AM CDT): Continue Ubrelvy p.r.n. Assessment & Plan (04/21/2025 6:45 PM CDT): Continue Ubrelvy p.r.n. Assessment & Plan (04/20/2025 9:48 AM CDT): Continue Ubrelvy p.r.n. Uses control 04/20/2025 Assessment & Plan (04/22/2025 8:44 AM CDT): Continue COCPs Assessment & Plan (04/21/2025 6:45 PM CDT): Continue COCPs Assessment & Plan (04/20/2025 9:48 AM CDT): Continue COCPs Cough 04/20/2025 Assessment & Plan (04/22/2025 8:44 AM CDT): Albuterol inhaler p.r.n. Adult bronchodilator therapy protocol Assessment & Plan (04/21/2025 6:45 PM CDT): Albuterol inhaler p.r.n. Adult bronchodilator therapy protocol Assessment & Plan (04/20/2025 9:48 AM CDT): Albuterol inhaler p.r.n. Adult bronchodilator therapy protocol Hypoglycemia, unspecified 04/19/2025 Assessment & Plan (04/29/2025 1:31 PM CDT): Her hospital labs and record was reviewed with the patient, her labs did not show hypoglycemia or endogenous hyperinsulinemic hypoglycemia. Her CGM download was reviewed with the patient, interpretation as above. since in last 2 days patient did not have any hypoglycemia and still complain of feeling exhausted which make it less likely that her symptoms are related to hypoglycemia. Patient complained of dizzy and drowsiness on standing up, her orthostatic vitals were obtained in the clinic and her blood pressure stayed stable. Hypoglycemia precautions was discussed with the patient, she will continue to work on diet. It was also discussed with the patient if she gets alarm from continuous glucose monitor about hypoglycemia she should confirm it with fingerstick. Orders: POCT glucose Assessment & Plan (04/22/2025 4:42 PM CDT): HbA1c 5.2, CO2 20 TSH 1.02, cortisol 10.5 RPR negative Beta hydroxybutyrate, lactate WNL C-peptide pending report CMP, HbA1c, TSH, Cortisol, liver enzymes, CBC, viral panel all are normal. Continuous blood glucose monitoring, she has a CGM device Continuous D5NS infusion Ordered PRN Dextrose 40 % gel 15 g or D10 bolus 250 mg for hypoglycemic episodes Endocrinology consulted Ordered phosphorus levels and beta HCG After discussion with endocrinology: We ordered prolactin, sulfonylurea test, insulin antibodies, and IGF-1. Assessment & Plan (04/21/2025 6:45 PM CDT): HbA1c 5.2, CO2 20 TSH 1.02, cortisol 10.5 RPR negative Beta hydroxybutyrate, lactate WNL C-peptide pending report CMP, HbA1c, TSH, Cortisol, liver enzymes, CBC, viral panel all are normal. Continuous blood glucose monitoring, she has a CGM device Continuous D5NS infusion Ordered PRN Dextrose 40 % gel 15 g or D10 bolus 250 mg for hypoglycemic episodes Endocrinology consulted Ordered phosphorus levels and beta HCG Assessment & Plan (04/20/2025 9:48 AM CDT): HbA1c 5.2, CO2 20 TSH 1.02, cortisol 10.5 RPR negative Beta hydroxybutyrate, lactate WNL C-peptide pending report CMP, HbA1c, TSH, Cortisol, liver enzymes, CBC, viral panel all are normal. Continuous blood glucose monitoring, she has a CGM device Continuous D5NS infusion Ordered PRN Dextrose 40 % gel 15 g or D10 bolus 250 mg for hypoglycemic episodes Endocrinology consulted Ordered phosphorus levels and beta HCG Assessment & Plan (04/20/2025 3:28 AM CDT): - Recurrent hypoglycemia with symptoms, recorded hypoglycemia, symptoms improving with sugary food/drinks - CMP, HbA1c, TSH, Cortisol, liver enzymes, CBC, viral panel all are normal. Her blood glucose during hospital found to be 85-107. - Patient expressed some ongoing stressor while conversating with attending DDs: insulinoma, exogenous glucose/sulfonylurea uses, post viral adrenal insufficiency Plan: - Continuous blood glucose monitoring - continuous D5 infusion - Ordered PRN Dextrose 40 % gel 15 g or D10 bolus 250 mg for hypoglycemic episodes - Endocrinology consult in am - Given labs are non revealing, and patient has ongoing symptoms, will defer day team for considering MRCP or MRI for any possible pathology. - consider psychiatry evaluation if appropriate for ruling psychogenic cause. 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 Overview (10/04/2016): Hip dysplasia Attention deficit disorder (ADD) without hyperac tivity 04/26/2012 Overview (10/04/2016): ADD (attention deficit disorder) Encounters Date Type Department Care Team Description 05/22/2025 Orders Only [facility] [address], [place] [address] Marcelina Yi MD Low serum alkaline phosphatase (Primary Dx) 04/28/2025 7:55 AM CDT Lab [address] [address] Low serum alkaline phosphatase 04/27/2025 1:30 PM CDT Office Visit [facility] [address] [address] Marcelina Yi MD Hypoglycemia, unspecified (Primary Dx); Low serum alkaline phosphatase; Fatigue, unspecified type 04/19/2025 12:42 PM CDT - 04/24/2025 3:05 PM CDT Hospital Encounter [facility] [address] [place] [address] Domingo Samson MD Anacius, Elisabeth, MD Avagyan, Juletta, MD Shahnawaz, MD Bella Patel, Johnny Rios, DO Hypoglycemia (Primary Dx); Other fatigue Discharge Disposition: Discharge to home or self care from Last 3 Months Surgical History Surgery Date Site/Laterality Comments WISDOM TOOTH EXTRACTION Oral Surgery Tooth Extraction [place] Tooth - (Added by ) Medical History Medical History Date Comments Essential tremor Familial tremor - (Added by ) Other specified congenital d eformities of hip Developmental dysplasia of h ip - (Added by ) Encounter for general adult medical examination without abnormal findings Routine physical examination - (Added by Conv) 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 - (Added by ) Personal history of other in fectious and parasitic diseases History of herpes genitalis - (Added by ) Family History Medical History Relation Name Comments Arthritis Other 1 Family H/O Arthritis; Cancer Other 1 Family H/O Cancer; Heart attack Other 1 Family H/O Myocardial infa rction; Before age 60 Hypertension Other 1 Family H/O Hypertension; Diabetes Other 2 Familyi H/O Diabetes mellit us; Hypertension Other 6 Hypertension - (Added by Conv) Diabetes Other 7 Diabetes Mellit us - (Added by TW Conv) Relation Name Status Comments Other 1 Family H/O Alive Other 2 Familyi H/O Alive Other 3 Family H/O Alive Other 4 Family H/O Alive Other 5 Family H/O Alive Other 6 Other 7 Social History Tobacco Use Types Packs/Day Years Used Date Smoking Tobacco: Never Smokeless Tobacco: Never Social Connection and Isolation Panel Answer Date Recorded In a typical week, how many times do you talk on the phone with family, friends, or neighbors? More than three times a week 04/21/2025 How often do you get togethe r with friends or relatives? More than three times a week 04/21/2025 How often do you attend chur ch or christian services? More than 4 times per year 04/21/2025 Do you belong to any clubs o r organizations such as religious groups, unions, fraternal or athletic groups, or school groups? No 04/21/2025 How often do you attend meet ings of the clubs or organizations you belong to? Never 04/21/2025 Are you , , di vorced, , never , or living with a partner? Never 04/21/2025 Overall Financial Resource Strain (CARDIA) Answe r Date Recorded How hard is it for you to pa y for the very basics like food, housing, medical care, and heating? Not hard at all 04/21/2025 Hunger Vital Sign Answer Date Recorded Within the past 12 months, y ou worried that your food would run out before you got the money to buy more. Never true 04/21/20 25 Within the past 12 months, t he food you bought just didn't last and you didn't have money to get more. Never true 04/21/2025 PRAPARE - Transportation Answer Date Re corded In the past 12 months, has l ack of transportation kept you from medical appointments or from getting medications? No 04/02 In the past 12 months, has l ack of transportation kept you from meetings, work, or from getting things needed for daily living? No 04/21/2025 Housing Stability Vital Sign Answer Nael e Recorded In the last 12 months, was t here a time when you were not able to pay the mortgage or rent on time? No 04/21/2025 In the past 12 months, how m any times have you moved where you were living? 0 04/21/2025 At any time in the past 12 m [facility], were you homeless or living in a fci (including now)? No 04/21/2025 [facility] Utilities Answer Date Recorded In the past 12 months has th e [employer], gas, oil, or water company threatened to shut off services in your home? No 04/21/2025 Personal Safety Answer Date Recorded Have you ever been in or are you currently in a harmful physical or emotional relationship or is someone making you feel afraid or unsafe? Denies 04/19/2025 Comments No Sex and Gender Information Value Date Recorded Sex Assigned at Not on file Legal Sex Female 1:36 AM [employer] Gender Identity Not on file Sexual Orientation Not on file Last Filed Vital Signs Vital Sign Reading Time Taken Comments Blood Pressure 102/82 04/27/2025 2:46 PM CDT Pulse 92 04/27/2025 2:46 PM CDT Temperature 36.7 C (98.1 F) 04/27/2025 1:35 PM CDT Respiratory Rate 18 04/24/2025 11:42 AM CDT Oxygen Saturation 98% 04/24/2025 11:42 AM CDT Inhaled Oxygen Concentration - - Weight 63 kg (138 lb 12.8 oz) 04/27/2025 1:35 PM CDT Height 167.6 cm (5' 5.98) 04/27/2025 1:35 PM CD T Body Mass Index 22.41 04/27/2025 1:35 PM CDT Plan of Treatment Health Maintenance Due Date Last Done Comments Cervical Cancer Screening 1992 Depression Screening 1992 Hepatitis C Screening 1992 Varicella Vaccines (1 of 2 - 13+ 2-dose series) 2005 Regular Well Visit/Exam 18-64 2010 HPV Vaccines (1 - 3-dose SCDM series) 2019 Covid-19 Vaccine ( - 2024- season) 2025 03/17/2021, 02/17/2021 Influenza Vaccine (#1) 2025 , 06/08/2023, 05/20/2022, Additional history exists DTaP/Tdap/Td Vaccine (7 - Td or Tdap) 07/17/2029 07/17/2019, 09/02/2014, 12/09/1993, Additional history exists Hepatitis B Screening Completed 06/22/1993 , 1992, 1992 Pneumococcal vaccine <65 Aged Out No longer eligible based on patient's age to complete this topic Procedures Procedure Name Priority Date/Time Associated Diagnosis Comments ALKALINE PHOSPHATASE Routine 04/28/2025 7:59 AM CDT Low serum alkaline phosphatase ALKALINE PHOSPHATASE, BONE SPECIFIC Routine 04/28/2025 7:59 AM CDT Low serum alkaline phosphatase PTH Routine 04/28/2025 7:59 AM CDT Low serum alkaline phosphatase POCT GLUCOSE Routine 04/27/2025 1:44 PM CDT Hypoglycemia, unspecified POCT GLUCOSE DEVICE Routine 04/24/2025 1 2:07 PM CDT POCT GLUCOSE DEVICE Routine 04/24/2025 8 :52 AM CDT POCT GLUCOSE DEVICE Routine 04/24/2025 7 :57 AM CDT POCT GLUCOSE DEVICE Routine 04/24/2025 5 :54 AM CDT POCT GLUCOSE DEVICE Routine 04/23/2025 9 :38 PM CDT POCT GLUCOSE DEVICE Routine 04/23/2025 5 :09 PM CDT POCT GLUCOSE DEVICE Routine 04/23/2025 3 :52 PM CDT ADD ON LAB TEST Add-On 04/23/2025 2:58 PM CDT POCT GLUCOSE DEVICE Routine 04/23/2025 2 :01 PM CDT MAGNESIUM Timed 04/23/2025 12:25 PM CDT EGFR Timed 04/23/2025 12:25 PM CDT C-PEPTIDE Timed 04/23/2025 12:25 PM CDT BASIC METABOLIC PANEL Timed 04/23/2025 12:25 PM CDT BETA-HYDROXYBUTYRATE Timed 04/23/2025 12:25 PM CDT POCT GLUCOSE DEVICE Routine 04/23/2025 1 1:12 AM CDT POCT GLUCOSE DEVICE Routine 04/23/2025 1 0:10 AM CDT POCT GLUCOSE DEVICE Routine 04/23/2025 9 :00 AM CDT POCT GLUCOSE DEVICE Routine 04/23/2025 8 :11 AM CDT POCT GLUCOSE DEVICE Routine 04/23/2025 7 :02 AM CDT POCT GLUCOSE DEVICE Routine 04/23/2025 6 :02 AM CDT POCT GLUCOSE DEVICE Routine 04/23/2025 5 :02 AM CDT POCT GLUCOSE DEVICE Routine 04/23/2025 4 :02 AM CDT POCT GLUCOSE DEVICE Routine 04/23/2025 2 :57 AM CDT POCT GLUCOSE DEVICE Routine 04/23/2025 2 :02 AM CDT POCT GLUCOSE DEVICE Routine 04/23/2025 1 :11 AM CDT POCT GLUCOSE DEVICE Routine 04/22/2025 1 1:59 PM CDT POCT GLUCOSE DEVICE Routine 04/22/2025 1 1:00 PM CDT POCT GLUCOSE DEVICE Routine 04/22/2025 1 0:01 PM CDT POCT GLUCOSE DEVICE Routine 04/22/2025 9 :04 PM CDT POCT GLUCOSE DEVICE Routine 04/22/2025 8 :03 PM CDT POCT GLUCOSE DEVICE Routine 04/22/2025 5 :59 PM CDT EGFR STAT 04/22/2025 5:37 PM CDT INSULIN, TOTAL STAT 04/22/2025 5:37 PM CDT C-PEPTIDE STAT 04/22/2025 5:37 PM CDT BETA-HYDROXYBUTYRATE STAT 04/22/2025 5:37 PM CDT BASIC METABOLIC PANEL STAT 04/22/2025 5:37 PM CDT PROINSULIN STAT 04/22/2025 5:37 PM CDT POCT GLUCOSE DEVICE Routine 04/22/2025 5 :04 PM CDT POCT GLUCOSE DEVICE Routine 04/22/2025 3 :28 PM CDT POCT GLUCOSE DEVICE Routine 04/22/2025 3 :09 PM CDT POCT GLUCOSE DEVICE Routine 04/22/2025 1 2:49 PM CDT POCT GLUCOSE DEVICE Routine 04/22/2025 1 0:53 AM CDT POCT GLUCOSE DEVICE Routine 04/22/2025 8 :54 AM CDT POCT GLUCOSE DEVICE Routine 04/22/2025 6 :08 AM CDT PROLACTIN Routine 04/22/2025 6:06 AM CDT POCT GLUCOSE DEVICE Routine 04/22/2025 4 :02 AM CDT POCT GLUCOSE DEVICE Routine 04/22/2025 2 :09 AM CDT POCT GLUCOSE DEVICE Routine 04/22/2025 1 2:06 AM CDT POCT GLUCOSE DEVICE Routine 04/21/2025 1 0:09 PM CDT POCT GLUCOSE DEVICE Routine 04/21/2025 8 :09 PM CDT POCT GLUCOSE DEVICE Routine 04/21/2025 6 :06 PM CDT POCT GLUCOSE DEVICE Routine 04/21/2025 4 :07 PM CDT BLOOD MISC TO [place] Routine 04/21/2025 3: 36 PM CDT INSULIN-LIKE GROWTH FACTOR Routine 04/21/2025 3:36 PM CDT PROLACTIN Routine 04/21/2025 3:36 PM CDT HYPOGLYCEMIC AGENT SCREEN STAT 04/21/2025 3:36 PM CDT POCT GLUCOSE DEVICE Routine 04/21/2025 2 :28 PM CDT POCT GLUCOSE DEVICE Routine 04/21/2025 1 1:56 AM CDT POCT GLUCOSE DEVICE Routine 04/21/2025 9 :41 AM CDT POCT GLUCOSE DEVICE Routine 04/21/2025 7 :58 AM CDT BETA-HYDROXYBUTYRATE Routine 04/21/2025 7:11 AM CDT PROINSULIN Routine 04/21/2025 7:11 AM CDT INSULIN, TOTAL Routine 04/21/2025 7:11 AM CDT C-PEPTIDE Routine 04/21/2025 7:11 AM CDT POCT GLUCOSE DEVICE Routine 04/21/2025 6 :18 AM CDT POCT GLUCOSE DEVICE Routine 04/21/2025 4 :28 AM CDT POCT GLUCOSE DEVICE Routine 04/21/2025 2 :09 AM CDT POCT GLUCOSE DEVICE Routine 04/21/2025 1 2:18 AM CDT POCT GLUCOSE DEVICE Routine 04/20/2025 1 0:23 PM CDT POCT GLUCOSE DEVICE Routine 04/20/2025 8 :16 PM CDT POCT GLUCOSE DEVICE Routine 04/20/2025 6 :05 PM CDT POCT GLUCOSE DEVICE Routine 04/20/2025 3 :57 PM CDT POCT GLUCOSE DEVICE Routine 04/20/2025 1 1:36 AM CDT ADD ON LAB TEST Add-On 04/20/2025 9:37 AM CDT ADD ON LAB TEST Add-On 04/20/2025 9:37 AM CDT POCT GLUCOSE DEVICE Routine 04/20/2025 8 :36 AM CDT POCT GLUCOSE DEVICE Routine 04/20/2025 4 :26 AM CDT PHOSPHORUS Routine 04/20/2025 12:55 AM CDT HCG, BLOOD, QUANTITATIVE Routine 04/20/2025 12:55 AM CDT BETA-HYDROXYBUTYRATE Routine 04/20/2025 12:55 AM CDT LACTATE STAT 04/20/2025 12:55 AM CDT POCT GLUCOSE DEVICE Routine 04/20/2025 1 2:06 AM CDT POCT GLUCOSE DEVICE Routine 04/19/2025 7 :36 PM CDT C-PEPTIDE STAT 04/19/2025 5:19 PM CDT POCT GLUCOSE DEVICE Routine 04/19/2025 5 :17 PM CDT POCT GLUCOSE DEVICE Routine 04/19/2025 3 :54 PM CDT RESPIRATORY PATHOGEN PANEL STAT 04/19/2025 3:50 PM CDT POCT GLUCOSE DEVICE Routine 04/19/2025 2 :31 PM CDT POCT GLUCOSE DEVICE Routine 04/19/2025 1 :38 PM CDT POCT GLUCOSE DEVICE Routine 04/19/2025 1 :02 PM CDT ECG 12-LEAD STAT 04/19/2025 12:59 PM CDT THYROID FUNCTION CASCADE STAT 04/19/2025 12:55 PM CDT CORTISOL STAT 04/19/2025 12:55 PM CDT HEMOGLOBIN A1C STAT 04/19/2025 12:55 PM CDT EGFR STAT 04/19/2025 12:55 PM CDT COMPREHENSIVE METABOLIC PANEL STAT 04/19/2025 12:55 PM CDT CBC WITHOUT DIFFERENTIAL STAT 04/19/2025 12:55 PM CDT POCT GLUCOSE DEVICE Routine 04/19/2025 1 2:54 PM CDT from Last 3 Months Results * Alkaline phosphatase, bone specific (04/28/2025 7:59 AM CDT) [facility] Alk phos, bone 3.2 mcg/L [place] [facility] Lab Comment: REFERENCE VALUE <=14 (Premenopausal) <=22 (Postmenopausal) ADDITIONAL INFORMATION Liver-derived alkaline phosphatase (ALP) increases apparent measured bone alkaline phosphatase (BAP) in this assay by 2.5 mcg/L to 5.8 mcg/L for every 100 U/L of liver ALP. Accordingly, serum specimens with significant elevations of liver ALP activity may yield artificially elevated results in the BAP assay. Test Performed by: [place] [address] Privacy Compliance Manager: Kate Wilde Ph.D.; CLIA# [id number] Blood 04/28/2025 7:59 AM CDT 04/28/2025 10:32 AM CDT Marcelina Yi MD LAB BLOOD ORDERABLES Final Resul t [id number] [facility] Department [place] [address] [facility] * (ABNORMAL) Alkaline phosphatase (04/28/2025 7:59 AM CDT) [facility] Alk phos 18(L) 40 - 130 Units/L Blood 04/28/2025 7:59 AM CDT 04/28/2025 10:33 AM CDT Marcelina Yi MD LAB BLOOD ORDERABLES Final Resul t Performing Organization Address City/[facility]/ZIP Co de Phone Number EBEN [address] [address] * PTH (04/28/2025 7:59 AM CDT) [facility] PTH 28 15 - 65 pg/mL Blood 04/28/2025 7:59 AM CDT 04/28/2025 10:32 AM CDT Marcelina Yi MD LAB BLOOD ORDERABLES Final Resul t Performing Organization Address [facility] de Phone Number EBEN [address] [address] * POCT glucose (04/27/2025 1:44 PM CDT) [facility] Glucose Blood, POC 104 Normal Fasting 70 - 100, Random <200 mg/dL Blood 04/27/2025 1:44 PM CDT Marcelina Yi MD POINT OF CARE TEST ORDERABLES Fi nal Result * POCT glucose (04/24/2025 12:07 PM CDT) [facility] Glucose, POC 93 70 - 199 mg/dL Comment: For Glucose values <35 mg/dl when Hematocrit is >60 mg/dl,the test may not accurately detect significant hypoglycemia,and testing in the Laboratory should be considered if clinically indicated. Blood 04/24/2025 12:0 7 PM CDT 04/24/2025 12:07 PM CDT Johnny Blanco DO LAB POCT ORDERABLES - D DENISE Final Result Performing Organization Address City/[facility]/ZIP Co de Phone Number EBEN [facility] [address] Department [place] [address] * (ABNORMAL) POCT glucose (04/24/2025 8:52 AM CDT) [facility] Glucose, POC 201(H) 70 - 199 mg/dL Comment: For Glucose values <35 mg/dl when Hematocrit is >60 mg/dl,the test may not accurately detect significant hypoglycemia,and testing in the Laboratory should be considered if clinically indicated. Blood 04/24/2025 8:52 AM CDT 04/24/2025 8:52 AM CDT Johnny Blanco DO LAB POCT ORDERABLES - D EVICE Final Result Performing Organization Address [facility] de Phone Number [facility] [address] [facility] [employer] [place], [place] [id number] * POCT glucose (04/24/2025 7:57 AM CDT) Glucose, POC 92 70 - 199 mg/dL Comment: For Glucose values <35 mg/dl when Hematocrit is >60 mg/dl,the test may not accurately detect significant hypoglycemia,and testing in the Laboratory should be considered if clinically indicated. Blood 04/24/2025 7:57 AM CDT 04/24/2025 7:57 AM CDT Johnny Blanco DO LAB POCT ORDERABLES - D EVICE Final Result Performing Organization Address [facility] de Phone Number [facility] [address] [facility] [place] [address] * POCT glucose (04/24/2025 5:54 AM CDT) Glucose, POC 91 70 - 199 mg/dL Comment: For Glucose values <35 mg/dl when Hematocrit is >60 mg/dl,the test may not accurately detect significant hypoglycemia,and testing in the Laboratory should be considered if clinically indicated. Blood 04/24/2025 5:54 AM CDT 04/24/2025 5:54 AM CDT Johnny Blanco DO LAB POCT ORDERABLES - D EVICE Final Result Performing Organization Address City/[facility]/ZIP Co de Phone Number EBEN [facility] [address] Department [place] [address] * POCT glucose (04/23/2025 9:38 PM CDT) Glucose, POC 108 70 - 199 mg/dL Comment: For Glucose values <35 mg/dl when Hematocrit is >60 mg/dl,the test may not accurately detect significant hypoglycemia,and testing in the Laboratory should be considered if clinically indicated. Blood 04/23/2025 9:38 PM CDT 04/23/2025 9:38 PM CDT Johnny Blanco DO LAB POCT ORDERABLES - D EVICE Final Result Performing Organization Address [facility] Co de Phone Number EBEN [facility] [address] Department [place] [address] * POCT glucose (04/23/2025 5:09 PM CDT) Glucose, POC 117 70 - 199 mg/dL Comment: For Glucose values <35 mg/dl when Hematocrit is >60 mg/dl,the test may not accurately detect significant hypoglycemia,and testing in the Laboratory should be considered if clinically indicated. Blood 04/23/2025 5:09 PM CDT 04/23/2025 5:09 PM CDT Johnny Blanco DO LAB POCT ORDERABLES - D EVICE Final Result Performing Organization Address [facility] Co de Phone Number EBEN [facility] [address] Department [place] [address] * POCT glucose (04/23/2025 3:52 PM CDT) Glucose, POC 103 70 - 199 mg/dL Comment: For Glucose values <35 mg/dl when Hematocrit is >60 mg/dl,the test may not accurately detect significant hypoglycemia,and testing in the Laboratory should be considered if clinically indicated. Blood 04/23/2025 3:52 PM CDT 04/23/2025 3:52 PM CDT Johnny Blanco DO LAB POCT ORDERABLES - D EVICE Final Result Performing Organization Address [facility] Co de Phone Number [facility] [address] [place] [address] * Magnesium - Add on lab test (04/23/2025 2:58 PM CDT) [facility] Acceptable Yes Blood 04/23/2025 2:58 PM CDT 04/23/2025 2:58 PM CDT Narrative [facility] - 04/23/2025 2:58 PM CDT Name of Test->Magnesium Monse Rajan MD LAB BLOOD ORDERABLES Final Resul t Performing Organization Address [facility] Co de Phone Number [facility] [address] Department [employer] [place], [place] [id number] * POCT glucose (04/23/2025 2:01 PM CDT) [facility] Glucose, POC 130 70 - 199 mg/dL Comment: For Glucose values <35 mg/dl when Hematocrit is >60 mg/dl,the test may not accurately detect significant hypoglycemia,and testing in the Laboratory should be considered if clinically indicated. Blood 04/23/2025 2:01 PM CDT 04/23/2025 2:01 PM CDT Johnny Blanco DO LAB POCT ORDERABLES - D EVICE Final Result Performing Organization Address [facility] Co de Phone Number [facility] [address] Department [employer] [place], [place] [phone] * eGFR (04/23/2025 12:25 PM CDT) [facility] eGFR >90 >=60 mL/min/1. 73 m2 Comment: Interpretive Data Reference Interval Normal >/= 90 mL/min/1.73m2 Mildly decreased* 60 - 89 mL/min/1.73m2 Mildly to moderately decreased 45 - 59 mL/min/1.73m2 Moderately to severely decreased 30 - 44 mL/min/1.73m2 Severely decreased 15 - 29 mL/min/1.73m2 Kidney Failure < 15 mL/min/1.73m2 *Relative to young adult level Estimated glomerular filtration rate is determined by the 2020 CKD-EPI equation recommended by the National Kidney Foundation (A Unifying Approach to GFR Estimation: Recommendations of the NKF-ASK Task Force on Reassessing the Inclusion of Race in Diagnosing Kidney Disease, JASN 2020). The CKD-EPI equation should not be used for patients with unstable renal function and has not been validated in children and those over 70. Current interpretive data was last reviewed 2021. Blood 04/23/2025 12:2 5 PM CDT 04/23/2025 12:45 PM CDT Monse Rajan MD LAB BLOOD ORDERABLES Final Resul t Performing Organization Address City/[facility]/ZIP Co de Phone Number [facility] [address] [place] [address] * (ABNORMAL) Beta-hydroxybutyrate (04/23/2025 12:25 PM CDT) Beta-Hydroxybut yrate 2.2(H) <=0.5 mmol/L Blood 04/23/2025 12:2 5 PM CDT 04/23/2025 12:45 PM CDT Monse Rajan MD LAB BLOOD ORDERABLES Final Resul t [facility] [address] Department [place], [place] [id number] * (ABNORMAL) C-peptide (04/23/2025 12:25 PM CDT) C-peptide 0.72(L) 1.10 - 4.40 ng/mL Comment:Testing performed by : [facility], [address] [facility], [place] [address] Blood 04/23/2025 12:2 5 PM CDT 04/23/2025 4:55 PM CDT Monse Rajan MD LAB BLOOD ORDERABLES Final Resul t Performing Organization Address City/[facility]/ZIP Co de Phone Number [facility] [address] Department [place] [address] * Magnesium (04/23/2025 12:25 PM CDT) Pathologist [facility] Magnesium 2.2 1.4 - 2.5 mg/dL Blood 04/23/2025 12:2 5 PM CDT 04/23/2025 12:45 PM CDT Johnny Blanco DO LAB BLOOD ORDERABLES Fi nal Result Performing Organization Address [facility] Co de Phone Number [facility] [address] Department [place] [address] * (ABNORMAL) Basic metabolic panel (04/23/2025 12:25 PM CDT) [facility] Sodium 135 135 - 145 mmol/L Potassium, pl 4.0 3.3 - 4.9 mmol/L [facility] Chloride 98 97 - 110 mmol/L [facility] CO2 20(L) 22 - 32 mmol/L [facility] Anion gap 17(H) 2 - 15 mmol/L [facility] BUN 15 6 - 25 mg/dL [facility] Creatinine 0.70 0.60 - 1.10 mg/dL [facility] Glucose 69(L) 70 - 199 mg/dL [facility] Comment: Interpretive Data Fasting glucose >/= 126 mg/dl is diagnostic for diabetes. Fasting is defined as no caloric intake for at least 8 hours. Fasting glucose between 100 mg/dl to 125 mg/dl is diagnostic of prediabetes. In a patient with classic symptoms of hyperglycemia or hyperglycemic crisis, a random glucose >/= 200 mg/dl is diagnostic for diabetes. In the absence of unequivocal hyperglycemia, results should be confirmed by repeat testing. The classification and Diagnosis of Diabetes Diabetes Care 2021; 46: S19-S40. Current interpretive data was last revised 2022. Calcium 9.3 8.5 - 10.3 mg/dL [facility] Blood 04/23/2025 12:2 5 PM CDT 04/23/2025 12:45 PM CDT Monse Rajan MD LAB BLOOD ORDERABLES Final Resul t Performing Organization Address [facility] Co de Phone Number [facility] [address] Department of [employer] [place], [place] [id number] * POCT glucose (04/23/2025 11:12 AM CDT) Glucose, POC 75 70 - 199 mg/dL Comment: For Glucose values <35 mg/dl when Hematocrit is >60 mg/dl,the test may not accurately detect significant hypoglycemia,and testing in the Laboratory should be considered if clinically indicated. Blood 04/23/2025 11:1 2 AM CDT 04/23/2025 11:12 AM CDT Johnny Blanco DO LAB POCT ORDERABLES - D EVICE Final Result Performing Organization Address [facility] Co de Phone Number [facility] [address] Department [place] [address] * (ABNORMAL) POCT glucose (04/23/2025 10:10 AM CDT) Glucose, POC 69(L) 70 - 199 mg/dL Comment: For Glucose values <35 mg/dl when Hematocrit is >60 mg/dl,the test may not accurately detect significant hypoglycemia,and testing in the Laboratory should be considered if clinically indicated. Blood 04/23/2025 10:1 0 AM CDT 04/23/2025 10:10 AM CDT Johnny Blanco LAB POCT ORDERABLES - D EVICE Final Result Performing Organization Address [facility] Co de Phone Number [facility] [address] [facility] [employer] [place], [place] [phone] * (ABNORMAL) POCT glucose (04/23/2025 9:00 AM CDT) Glucose, POC 69(L) 70 - 199 mg/dL Comment: For Glucose values <35 mg/dl when Hematocrit is >60 mg/dl,the test may not accurately detect significant hypoglycemia,and testing in the Laboratory should be considered if clinically indicated. Blood 04/23/2025 9:00 AM CDT 04/23/2025 9:00 AM CDT Johnny Tobiasenther LAB POCT ORDERABLES - D EVICE Final Result Performing Organization Address [facility] Co de Phone Number [facility] [address] [facility] [place] [address] * (ABNORMAL) POCT glucose (04/23/2025 8:11 AM CDT) Glucose, POC 69(L) 70 - 199 mg/dL Comment: For Glucose values <35 mg/dl when Hematocrit is >60 mg/dl,the test may not accurately detect significant hypoglycemia,and testing in the Laboratory should be considered if clinically indicated. Blood 04/23/2025 8:11 AM CDT 04/23/2025 8:11 AM CDT Johnny aYñezer LAB POCT ORDERABLES - D EVICE Final Result Performing Organization Address City/[facility] Co de Phone Number [facility] [address] [facility] [employer] [place], [place] [phone] * (ABNORMAL) POCT glucose (04/23/2025 7:02 AM CDT) Glucose, POC 67(L) 70 - 199 mg/dL Comment: For Glucose values <35 mg/dl when Hematocrit is >60 mg/dl,the test may not accurately detect significant hypoglycemia,and testing in the Laboratory should be considered if clinically indicated. Glucose comment 1 RN/MD Notified [facility] Blood 04/23/2025 7:02 AM CDT 04/23/2025 7:02 AM CDT Johnny Blanco DO LAB POCT ORDERABLES - D EVICE Final Result Performing Organization Address [facility] de Phone Number [facility] [address] [facility] [place] [address] * POCT glucose (04/23/2025 6:02 AM CDT) Glucose, POC 73 70 - 199 mg/dL Comment: For Glucose values <35 mg/dl when Hematocrit is >60 mg/dl,the test may not accurately detect significant hypoglycemia,and testing in the Laboratory should be considered if clinically indicated. Blood 04/23/2025 6:02 AM CDT 04/23/2025 6:02 AM CDT Johnny Blanco DO LAB POCT ORDERABLES - D EVICE Final Result Performing Organization Address [facility] de Phone Number [facility] [address] [facility] [place] [address] * (ABNORMAL) POCT glucose (04/23/2025 5:02 AM CDT) Glucose, POC 67(L) 70 - 199 mg/dL Comment: For Glucose values <35 mg/dl when Hematocrit is >60 mg/dl,the test may not accurately detect significant hypoglycemia,and testing in the Laboratory should be considered if clinically indicated. Blood 04/23/2025 5:02 AM CDT 04/23/2025 5:02 AM CDT Johnny Blanco DO LAB POCT ORDERABLES - D EVICE Final Result Performing Organization Address [facility] Co de Phone Number [facility] [address] Department [employer] [place], [place] [phone] * (ABNORMAL) POCT glucose (04/23/2025 4:02 AM CDT) Glucose, POC 62(L) 70 - 199 mg/dL Comment: For Glucose values <35 mg/dl when Hematocrit is >60 mg/dl,the test may not accurately detect significant hypoglycemia,and testing in the Laboratory should be considered if clinically indicated. Glucose comment 1 RN/ Notified [facility] Blood 04/23/2025 4:02 AM CDT 04/23/2025 4:02 AM CDT Johnny Blanco DO LAB POCT ORDERABLES - D EVICE Final Result Performing Organization Address [facility] de Phone Number [facility] [address] [facility] [place] [address] * (ABNORMAL) POCT glucose (04/23/2025 2:57 AM CDT) Glucose, POC 60(L) 70 - 199 mg/dL Comment: For Glucose values <35 mg/dl when Hematocrit is >60 mg/dl,the test may not accurately detect significant hypoglycemia,and testing in the Laboratory should be considered if clinically indicated. Glucose comment 1 RN/ Notified [facility] Blood 04/23/2025 2:57 AM CDT 04/23/2025 2:57 AM CDT Johnny Blanco DO LAB POCT ORDERABLES - D EVICE Final Result Performing Organization Address [facility] Co de Phone Number [facility] [address] [facility] [employer] [place], [place] [phone] * (ABNORMAL) POCT glucose (04/23/2025 2:02 AM CDT) Glucose, POC 69(L) 70 - 199 mg/dL Comment: For Glucose values <35 mg/dl when Hematocrit is >60 mg/dl,the test may not accurately detect significant hypoglycemia,and testing in the Laboratory should be considered if clinically indicated. Glucose comment 1 RN/MD Notified [facility] Blood 04/23/2025 2:02 AM CDT 04/23/2025 2:02 AM CDT Johnny Blanco DO LAB POCT ORDERABLES - D EVICE Final Result Performing Organization Address [facility] Co de Phone Number [facility] [address] [facility] [place] [address] * (ABNORMAL) POCT glucose (04/23/2025 1:11 AM CDT) Glucose, POC 64(L) 70 - 199 mg/dL Comment: For Glucose values <35 mg/dl when Hematocrit is >60 mg/dl,the test may not accurately detect significant hypoglycemia,and testing in the Laboratory should be considered if clinically indicated. Blood 04/23/2025 1:11 AM CDT 04/23/2025 1:11 AM CDT Johnny Blanco DO LAB POCT ORDERABLES - D EVICE Final Result Performing Organization Address [facility] de Phone Number [facility] [address] [facility] [place] [address] * POCT glucose (04/22/2025 11:59 PM CDT) Glucose, POC 71 70 - 199 mg/dL Comment: For Glucose values <35 mg/dl when Hematocrit is >60 mg/dl,the test may not accurately detect significant hypoglycemia,and testing in the Laboratory should be considered if clinically indicated. Blood 04/22/2025 11:5 9 PM CDT 04/22/2025 11:59 PM CDT Johnny Blanco DO LAB POCT ORDERABLES - D EVICE Final Result Performing Organization Address [facility] Co de Phone Number [facility] [address] Department [place] [address] * (ABNORMAL) POCT glucose (04/22/2025 11:00 PM CDT) Glucose, POC 65(L) 70 - 199 mg/dL Comment: For Glucose values <35 mg/dl when Hematocrit is >60 mg/dl,the test may not accurately detect significant hypoglycemia,and testing in the Laboratory should be considered if clinically indicated. Blood 04/22/2025 11:0 0 PM CDT 04/22/2025 11:00 PM CDT Johnny Blanco DO LAB POCT ORDERABLES - D EVICE Final Result Performing Organization Address [facility] Co de Phone Number [facility] [address] [place] [address] * POCT glucose (04/22/2025 10:01 PM CDT) Glucose, POC 73 70 - 199 mg/dL Comment: For Glucose values <35 mg/dl when Hematocrit is >60 mg/dl,the test may not accurately detect significant hypoglycemia,and testing in the Laboratory should be considered if clinically indicated. Blood 04/22/2025 10:0 1 PM CDT 04/22/2025 10:01 PM CDT Johnny Blanco DO LAB POCT ORDERABLES - D EVICE Final Result Performing Organization Address [facility] Co de Phone Number [facility] [address] [place] [address] * (ABNORMAL) POCT glucose (04/22/2025 9:04 PM CDT) Glucose, POC 67(L) 70 - 199 mg/dL Comment: For Glucose values <35 mg/dl when Hematocrit is >60 mg/dl,the test may not accurately detect significant hypoglycemia,and testing in the Laboratory should be considered if clinically indicated. Blood 04/22/2025 9:04 PM CDT 04/22/2025 9:04 PM CDT Johnny Blanco DO LAB POCT ORDERABLES - D EVICE Final Result Performing Organization Address [facility]/ZIP Co de Phone Number [facility] [address] [facility] [place] [address] * POCT glucose (04/22/2025 8:03 PM CDT) Glucose, POC 71 70 - 199 mg/dL Comment: For Glucose values <35 mg/dl when Hematocrit is >60 mg/dl,the test may not accurately detect significant hypoglycemia,and testing in the Laboratory should be considered if clinically indicated. Glucose comment 1 RN/MD Notified [facility] Blood 04/22/2025 8:03 PM CDT 04/22/2025 8:03 PM CDT Johnny Blanco DO LAB POCT ORDERABLES - D EVICE Final Result Performing Organization Address [facility] Co de Phone Number [facility] [address] [facility] [place] [address] * POCT glucose (04/22/2025 5:59 PM CDT) Glucose, POC 74 70 - 199 mg/dL Comment: For Glucose values <35 mg/dl when Hematocrit is >60 mg/dl,the test may not accurately detect significant hypoglycemia,and testing in the Laboratory should be considered if clinically indicated. Blood 04/22/2025 5:59 PM CDT 04/22/2025 5:59 PM CDT Johnny Blanco DO LAB POCT ORDERABLES - D EVICE Final Result Performing Organization Address City/[facility]/ZIP Co de Phone Number [facility] [address] [facility] [employer] [place], [place] [phone] * eGFR (04/22/2025 5:37 PM CDT) eGFR >90 >=60 mL/min/1. 73 m2 Comment: Interpretive Data Reference Interval Normal >/= 90 mL/min/1.73m2 Mildly decreased* 60 - 89 mL/min/1.73m2 Mildly to moderately decreased 45 - 59 mL/min/1.73m2 Moderately to severely decreased 30 - 44 mL/min/1.73m2 Severely decreased 15 - 29 mL/min/1.73m2 Kidney Failure < 15 mL/min/1.73m2 *Relative to young adult level Estimated glomerular filtration rate is determined by the 2020 CKD-EPI equation recommended by the National Kidney Foundation (A Unifying Approach to GFR Estimation: Recommendations of the NKF-ASK Task Force on Reassessing the Inclusion of Race in Diagnosing Kidney Disease, JASN 2020). The CKD-EPI equation should not be used for patients with unstable renal function and has not been validated in children and those over 70. Current interpretive data was last reviewed 2021. Blood 04/22/2025 5:37 PM CDT 04/22/2025 5:46 PM CDT Monse Rajan MD LAB BLOOD ORDERABLES Final Resul t Performing Organization Address City/[facility] Co de Phone Number [facility] [address] [employer] [place], [place] [phone] * (ABNORMAL) Beta-hydroxybutyrate (04/22/2025 5:37 PM CDT) Beta-Hydroxybut yrate 1.9(H) <=0.5 mmol/L Blood 04/22/2025 5:37 PM CDT 04/22/2025 5:46 PM CDT Monse Rajan MD LAB BLOOD ORDERABLES Final Resul t Performing Organization Address City/[facility] Co de Phone Number [facility] [address] Department [place] [address] * Proinsulin (04/22/2025 5:37 PM CDT) Pathologist [facility] Proinsulin 3.7 3.6 - 22 pmol/L [facility] Comment: ADDITIONAL INFORMATION This test was developed and its performance characteristics determined by [facility] in a manner consistent with CLIA requirements. This test has not been cleared or approved by the U.S. Food and Drug Administration. Test Performed by: [facility] [address] [place] [address] Privacy Compliance Manager: Kate Wilde Ph.D.; CLIA# [id number] Blood 04/22/2025 5:37 PM CDT 04/22/2025 5:43 PM CDT Monse Rajan MD LAB BLOOD ORDERABLES Final Resul t Performing Organization Address City/[facility]/ZIP Co de Phone Number [facility] [address] [place] [address] [facility] * Insulin, total (04/22/2025 5:37 PM CDT) Pathologist [facility] Insulin 3.6 2.6 - 25.0 mcIUnit/mL Comment:Testing performed by : [facility], [address] [facility], [place]., [address] Blood 04/22/2025 5:37 PM CDT 04/22/2025 7:28 PM CDT Monse Rajan MD LAB BLOOD ORDERABLES Final Resul t [facility] [address] [place] [address] * (ABNORMAL) C-peptide (04/22/2025 5:37 PM CDT) Pathologist [facility] C-peptide 1.02(L) 1.10 - 4.40 ng/mL Comment:Testing performed by : [facility], [address] [place]., [address] Blood 04/22/2025 5:37 PM CDT 04/22/2025 7:28 PM CDT us Monse Rajan MD LAB BLOOD ORDERABLES Final Resul t Performing Organization Address City/[facility]/ZIP Co de Phone Number [facility] [address] Department [place] [address] * (ABNORMAL) Basic metabolic panel (04/22/2025 5:37 PM CDT) Sodium 135 135 - 145 mmol/L Potassium, pl 4.1 3.3 - 4.9 mmol/L [facility] Chloride 101 97 - 110 mmol/L [facility] CO2 18(L) 22 - 32 mmol/L [facility] Anion gap 16(H) 2 - 15 mmol/L [facility] BUN 18 6 - 25 mg/dL [facility] Creatinine 0.61 0.60 - 1.10 mg/dL [facility] Glucose 68(L) 70 - 199 mg/dL [facility] Comment: Interpretive Data Fasting glucose >/= 126 mg/dl is diagnostic for diabetes. Fasting is defined as no caloric intake for at least 8 hours. Fasting glucose between 100 mg/dl to 125 mg/dl is diagnostic of prediabetes. In a patient with classic symptoms of hyperglycemia or hyperglycemic crisis, a random glucose >/= 200 mg/dl is diagnostic for diabetes. In the absence of unequivocal hyperglycemia, results should be confirmed by repeat testing. The classification and Diagnosis of Diabetes Diabetes Care 2021; 46: S19-S40. Current interpretive data was last revised 2022. Calcium 8.9 8.5 - 10.3 mg/dL [facility] Blood 04/22/2025 5:37 PM CDT 04/22/2025 5:46 PM CDT us Monse Rajan MD LAB BLOOD ORDERABLES Final Resul t Performing Organization Address City/[facility]/ZIP Co de Phone Number [facility] [address] Department [place] [address] * POCT glucose (04/22/2025 5:04 PM CDT) Glucose, POC 71 70 - 199 mg/dL Comment: For Glucose values <35 mg/dl when Hematocrit is >60 mg/dl,the test may not accurately detect significant hypoglycemia,and testing in the Laboratory should be considered if clinically indicated. Blood 04/22/2025 5:04 PM CDT 04/22/2025 5:04 PM CDT Johnny Blanco DO LAB POCT ORDERABLES - D EVICE Final Result Performing Organization Address [facility] de Phone Number [facility] [address] Department [place] [address] * (ABNORMAL) POCT glucose (04/22/2025 3:28 PM CDT) Glucose, POC 67(L) 70 - 199 mg/dL Comment: For Glucose values <35 mg/dl when Hematocrit is >60 mg/dl,the test may not accurately detect significant hypoglycemia,and testing in the Laboratory should be considered if clinically indicated. Blood 04/22/2025 3:28 PM CDT 04/22/2025 3:28 PM CDT Johnny Blanco DO LAB POCT ORDERABLES - D EVICE Final Result Performing Organization Address [facility] Co de Phone Number [facility] [address] [facility] [place] [address] * POCT glucose (04/22/2025 3:09 PM CDT) Glucose, POC 75 70 - 199 mg/dL Comment: For Glucose values <35 mg/dl when Hematocrit is >60 mg/dl,the test may not accurately detect significant hypoglycemia,and testing in the Laboratory should be considered if clinically indicated. Blood 04/22/2025 3:09 PM CDT 04/22/2025 3:09 PM CDT Johnny Blanco LAB POCT ORDERABLES - D EVICE Final Result Performing Organization Address [facility] Co de Phone Number [facility] [address] [facility] [employer] [place], [place] [id number] * (ABNORMAL) POCT glucose (04/22/2025 12:49 PM CDT) Glucose, POC 63(L) 70 - 199 mg/dL Comment: For Glucose values <35 mg/dl when Hematocrit is >60 mg/dl,the test may not accurately detect significant hypoglycemia,and testing in the Laboratory should be considered if clinically indicated. Blood 04/22/2025 12:4 9 PM CDT 04/22/2025 12:49 PM CDT Johnny Blanco DO LAB POCT ORDERABLES - D EVICE Final Result Performing Organization Address [facility] de Phone Number [facility] [address] [facility] [employer] [place], [place] [id number] * POCT glucose (04/22/2025 10:53 AM CDT) Glucose, POC 75 70 - 199 mg/dL Comment: For Glucose values <35 mg/dl when Hematocrit is >60 mg/dl,the test may not accurately detect significant hypoglycemia,and testing in the Laboratory should be considered if clinically indicated. Blood 04/22/2025 10:5 3 AM CDT 04/22/2025 10:53 AM CDT Johnny Blanco LAB POCT ORDERABLES - D EVICE Final Result Performing Organization Address [facility] Co de Phone Number [facility] [address] [facility] [employer] [place], [place] [id number] * (ABNORMAL) POCT glucose (04/22/2025 8:54 AM CDT) Glucose, POC 64(L) 70 - 199 mg/dL Comment: For Glucose values <35 mg/dl when Hematocrit is >60 mg/dl,the test may not accurately detect significant hypoglycemia,and testing in the Laboratory should be considered if clinically indicated. Blood 04/22/2025 8:54 AM CDT 04/22/2025 8:54 AM CDT Johnny Blanco DO LAB POCT ORDERABLES - D EVICE Final Result Performing Organization Address [facility] Co de Phone Number [facility] [address] [facility] [employer] [place], [place] [id number] * (ABNORMAL) POCT glucose (04/22/2025 6:08 AM CDT) Glucose, POC 64(L) 70 - 199 mg/dL Comment: For Glucose values <35 mg/dl when Hematocrit is >60 mg/dl,the test may not accurately detect significant hypoglycemia,and testing in the Laboratory should be considered if clinically indicated. Blood 04/22/2025 6:08 AM CDT 04/22/2025 6:08 AM CDT Johnny Blanco DO LAB POCT ORDERABLES - D EVICE Final Result Performing Organization Address [facility] de Phone Number [facility] [address] [facility] [place] [address] * (ABNORMAL) Prolactin (04/22/2025 6:06 AM CDT) Prolactin 27.800(H) 4.790 - 23.300 ng/mL Blood 04/22/2025 6:06 AM CDT 04/22/2025 6:26 AM CDT Johnny Blanco DO LAB BLOOD ORDERABLES Fi nal Result Performing Organization Address [facility]/ZIP Co de Phone Number [facility] [address] Department [place] [address] * POCT glucose (04/22/2025 4:02 AM CDT) Glucose, POC 72 70 - 199 mg/dL Comment: For Glucose values <35 mg/dl when Hematocrit is >60 mg/dl,the test may not accurately detect significant hypoglycemia,and testing in the Laboratory should be considered if clinically indicated. Blood 04/22/2025 4:02 AM CDT 04/22/2025 4:02 AM CDT Johnny Blanco LAB POCT ORDERABLES - D EVICE Final Result Performing Organization Address [facility]/ZIP Co de Phone Number [facility] [address] Department [place] [address] * POCT glucose (04/22/2025 2:09 AM CDT) Glucose, POC 72 70 - 199 mg/dL Comment: For Glucose values <35 mg/dl when Hematocrit is >60 mg/dl,the test may not accurately detect significant hypoglycemia,and testing in the Laboratory should be considered if clinically indicated. Blood 04/22/2025 2:09 AM CDT 04/22/2025 2:09 AM CDT Johnny Blanco DO LAB POCT ORDERABLES - D EVICE Final Result [facility] [address] Department [place] [address] * POCT glucose (04/22/2025 12:06 AM CDT) Glucose, POC 77 70 - 199 mg/dL Comment: For Glucose values <35 mg/dl when Hematocrit is >60 mg/dl,the test may not accurately detect significant hypoglycemia,and testing in the Laboratory should be considered if clinically indicated. Blood 04/22/2025 12:0 6 AM CDT 04/22/2025 12:06 AM CDT Johnny Blanco DO LAB POCT ORDERABLES - D EVICE Final Result Performing Organization Address [facility] Co de Phone Number [facility] [address] Department of [employer] [place], [place] [phone] * (ABNORMAL) POCT glucose (04/21/2025 10:09 PM CDT) Glucose, POC 68(L) 70 - 199 mg/dL Comment: For Glucose values <35 mg/dl when Hematocrit is >60 mg/dl,the test may not accurately detect significant hypoglycemia,and testing in the Laboratory should be considered if clinically indicated. Blood 04/21/2025 10:0 9 PM CDT 04/21/2025 10:09 PM CDT Johnny Blanco DO LAB POCT ORDERABLES - D EVICE Final Result Performing Organization Address [facility] de Phone Number [facility] [address] [facility] [employer] [place], [place] [id number] * POCT glucose (04/21/2025 8:09 PM CDT) Glucose, POC 75 70 - 199 mg/dL Comment: For Glucose values <35 mg/dl when Hematocrit is >60 mg/dl,the test may not accurately detect significant hypoglycemia,and testing in the Laboratory should be considered if clinically indicated. Blood 04/21/2025 8:09 PM CDT 04/21/2025 8:09 PM CDT Johnny Blanco DO LAB POCT ORDERABLES - D EVICE Final Result Performing Organization Address [facility] Co de Phone Number [facility] [address] Department of [employer] [place], [place] [phone] * POCT glucose (04/21/2025 6:06 PM CDT) Glucose, POC 76 70 - 199 mg/dL Comment: For Glucose values <35 mg/dl when Hematocrit is >60 mg/dl,the test may not accurately detect significant hypoglycemia,and testing in the Laboratory should be considered if clinically indicated. Blood 04/21/2025 6:06 PM CDT 04/21/2025 6:06 PM CDT Johnny Blanco DO LAB POCT ORDERABLES - D EVICE Final Result Performing Organization Address [facility] de Phone Number [facility] [address] Department [place] [address] * POCT glucose (04/21/2025 4:07 PM CDT) [facility] Glucose, POC 82 70 - 199 mg/dL Comment: For Glucose values <35 mg/dl when Hematocrit is >60 mg/dl,the test may not accurately detect significant hypoglycemia,and testing in the Laboratory should be considered if clinically indicated. Blood 04/21/2025 4:07 PM CDT 04/21/2025 4:07 PM CDT Johnny Blanco LAB POCT ORDERABLES - D EVICE Final Result Performing Organization Address [facility] de Phone Number [facility] [address] [place] [address] * BLOOD MISC TO [place] (04/21/2025 3:36 PM CDT) [facility] See Footnote [facility] ref [facility] Comment: Test Result Flag Unit RefValue Insulin Antibodies <5.0 uU/mL This test is also known as insulin autoantibody or IAA. This test was developed and its performance characteristics determined by [employer]. It has not been cleared or approved by the Food and Drug Administration. Reference Range: <5.0 Negative > or = 5.0 Positive Test Performed by: [facility] [address] [place] [address] Blood 04/21/2025 3:36 PM CDT 04/21/2025 3:51 PM CDT Johnny Blanco DO LAB BLOOD ORDERABLES nal Result [facility] [address] Department [place] [address] [facility] ref [facility] * Hypoglycemic agent screen (04/21/2025 3:36 PM CDT) Chlorpropamide Negative [facility] ref Lab Comment: REFERENCE VALUE Negative; Zqrprl=043 ng/mL Glimepiride Negative [facility] Comment: REFERENCE VALUE Negative; Cutoff=20 ng/mL Glipizide Negative [facility] Comment: REFERENCE VALUE Negative; Cutoff=5 ng/mL Glyburide Negative [facility] Comment: REFERENCE VALUE Negative; Cutoff=5 ng/mL Nateglinide Negative [facility] Comment: REFERENCE VALUE Negative; Cutoff=5 ng/mL Pioglitazone Negative [facility] Comment: REFERENCE VALUE Negative; Cutoff=20 ng/mL Repaglinide Negative [facility] Comment: REFERENCE VALUE Negative; Cutoff=5 ng/mL Rosiglitazone Negative [facility] Comment: REFERENCE VALUE Negative; Cutoff=20 ng/mL Tolazamide Negative [facility] Comment: REFERENCE VALUE Negative; Cutoff=50 ng/mL Tolbutamide Negative [facility] Comment: REFERENCE VALUE Negative; Cutoff=20 ng/mL ADDITIONAL INFORMATION This test was developed and its performance characteristics determined by [facility] in a manner consistent with CLIA requirements. This test has not been cleared or approved by the U.S. Food and Drug Administration. Test Performed by: [facility] [employer] [address] [place] [address] Privacy Compliance Manager: Kate Wilde Ph.D.; CLIA# [id number] Blood 04/21/2025 3:36 PM CDT 04/21/2025 3:51 PM CDT Johnny Blanco LAB BLOOD ORDERABLES Fi nal Result [facility] [address] [facility] [place] [address] [facility] * Prolactin (04/21/2025 3:36 PM CDT) Prolactin 9.510 4.790 - 23.300 ng/mL Blood 04/21/2025 3:36 PM CDT 04/21/2025 3:53 PM CDT Johnny Blanco LAB BLOOD ORDERABLES Fi nal Result Performing Organization Address City/[facility] Co de Phone Number [facility] [address] [facility] [place] [address] * Insulin-like growth factor (IGF-1) (04/21/2025 3:36 PM CDT) Insulin-like growth factor 1 (IGF-1) 229 60 - 280 ng/mL Comment: Interpretive Data Janusz Stage Male Female I 80-250 80-320 II 100-450 120-450 III 250-500 250-550 IV 225-600 225-600 V 225-500 180-500 Assay calibrated to WHO and instituted at [facility] 10/2017. References: 1. [employer] IGF-1 Package Insert 2017-04, V 1.0. 2. [facility] [employer] IGFMS entry ([email or web address]/[email or web address]) accessed 11-07-2017. 3. Kimberley M, Mary Jane N, Tramaine RT et al. J Clin Endocrinol Metab 2014;99:8167-7668. Current interpretive data was last revised on 2017. Testing performed by: [facility], [facility], [place]., [address] Blood 04/21/2025 3:36 PM CDT 04/22/2025 8:33 PM CDT Johnny Blanco DO LAB BLOOD ORDERABLES Fi nal Result Performing Organization Address [facility] Co de Phone Number [facility] [address] [facility] [place] [address] * POCT glucose (04/21/2025 2:28 PM CDT) Glucose, POC 73 70 - 199 mg/dL Comment: For Glucose values <35 mg/dl when Hematocrit is >60 mg/dl,the test may not accurately detect significant hypoglycemia,and testing in the Laboratory should be considered if clinically indicated. Blood 04/21/2025 2:28 PM CDT 04/21/2025 2:28 PM CDT Johnny Blanco DO LAB POCT ORDERABLES - D EVICE Final Result Performing Organization Address [facility] de Phone Number [facility] [address] [employer] [place] [address] * POCT glucose (04/21/2025 11:56 AM CDT) Glucose, POC 76 70 - 199 mg/dL Comment: For Glucose values <35 mg/dl when Hematocrit is >60 mg/dl,the test may not accurately detect significant hypoglycemia,and testing in the Laboratory should be considered if clinically indicated. Blood 04/21/2025 11:5 6 AM CDT 04/21/2025 11:56 AM CDT Johnny Blanco LAB POCT ORDERABLES - D EVICE Final Result Performing Organization Address City/[facility] Co de Phone Number [facility] [address] [facility] [employer] [place], [place] [phone] * POCT glucose (04/21/2025 9:41 AM CDT) Glucose, POC 86 70 - 199 mg/dL Comment: For Glucose values <35 mg/dl when Hematocrit is >60 mg/dl,the test may not accurately detect significant hypoglycemia,and testing in the Laboratory should be considered if clinically indicated. Blood 04/21/2025 9:41 AM CDT 04/21/2025 9:41 AM CDT Johnny Blanco DO LAB POCT ORDERABLES - D EVICE Final Result Performing Organization Address [facility] Co de Phone Number [facility] [address] [facility] [employer] [place], [place] [phone] * POCT glucose (04/21/2025 7:58 AM CDT) Glucose, POC 86 70 - 199 mg/dL Comment: For Glucose values <35 mg/dl when Hematocrit is >60 mg/dl,the test may not accurately detect significant hypoglycemia,and testing in the Laboratory should be considered if clinically indicated. Blood 04/21/2025 7:58 AM CDT 04/21/2025 7:58 AM CDT Johnny Blanco DO LAB POCT ORDERABLES - D EVICE Final Result Performing Organization Address [facility] de Phone Number [facility] [address] [facility] [place] [address] * Beta-hydroxybutyrate (04/21/2025 7:11 AM CDT) Beta-Hydroxybut yrate 0.5 <=0.5 mmol/L Blood 04/21/2025 7:11 AM CDT 04/21/2025 7:49 AM CDT Narrative [facility] - 04/21/2025 8:17 AM CDT To be drawn only POC BG DROP <54 Monse Rajan MD LAB BLOOD ORDERABLES Final Resul t Performing Organization Address [facility] Co de Phone Number [facility] [address] Department [employer] [place], [place] [id number] * Proinsulin (04/21/2025 7:11 AM CDT) Proinsulin 4.3 3.6 - 22 pmol/L Sandra ref Lab Comment: ADDITIONAL INFORMATION This test was developed and its performance characteristics determined by [facility] in a manner consistent with CLIA requirements. This test has not been cleared or approved by the U.S. Food and Drug Administration. Test Performed by: [facility] [address] [place] [address] Privacy Compliance Manager: Kate Wilde Ph.D.; CLIA# [id number] Blood 04/21/2025 7:11 AM CDT 04/21/2025 7:49 AM CDT Narrative [facility] - 04/24/2025 3:21 PM CDT To be drawn only POC BG DROP <54 Monse Rajan MD LAB BLOOD ORDERABLES Final Resul t [facility] [address] [employer] [place], [place] [id number] [facility] * Insulin, total (04/21/2025 7:11 AM CDT) Insulin 4.4 2.6 - 25.0 mcIUnit/mL Comment:Testing performed by : [facility], [address] [place]., [address] Blood 04/21/2025 7:11 AM CDT 04/23/2025 11:22 AM CDT Narrative [facility] - 04/23/2025 3:43 PM CDT To be drawn only POC BG DROP <54 Monse Rajan MD LAB BLOOD ORDERABLES Final Resul t [facility] [address] Department [place] [address] * C-peptide (04/21/2025 7:11 AM CDT) C-peptide 1.55 1.10 - 4.40 ng/mL Comment:Testing performed by : [facility], [address] [facility], [place]., [address] Blood 04/21/2025 7:11 AM CDT 04/21/2025 11:10 AM CDT Narrative [facility] - 04/22/2025 3:42 PM CDT To be drawn only POC BG DROP <54 Monse Rajan MD LAB BLOOD ORDERABLES Final Resul t [facility] [address] Department [place] [address] * POCT glucose (04/21/2025 6:18 AM CDT) Glucose, POC 89 70 - 199 mg/dL Comment: For Glucose values <35 mg/dl when Hematocrit is >60 mg/dl,the test may not accurately detect significant hypoglycemia,and testing in the Laboratory should be considered if clinically indicated. Blood 04/21/2025 6:18 AM CDT 04/21/2025 6:18 AM CDT Johnny Blanco DO LAB POCT ORDERABLES - D DENISE Final Result [facility] [address] Department [place] [address] * POCT glucose (04/21/2025 4:28 AM CDT) Glucose, POC 88 70 - 199 mg/dL Comment: For Glucose values <35 mg/dl when Hematocrit is >60 mg/dl,the test may not accurately detect significant hypoglycemia,and testing in the Laboratory should be considered if clinically indicated. Blood 04/21/2025 4:28 AM CDT 04/21/2025 4:28 AM CDT us [facility] Randall Wesley MD LAB POCT ORDERABL ES - DEVICE Final Result Performing Organization Address [facility] de Phone Number [facility] [address] [facility] [place] [address] * POCT glucose (04/21/2025 2:09 AM CDT) Glucose, POC 84 70 - 199 mg/dL Comment: For Glucose values <35 mg/dl when Hematocrit is >60 mg/dl,the test may not accurately detect significant hypoglycemia,and testing in the Laboratory should be considered if clinically indicated. Blood 04/21/2025 2:09 AM CDT 04/21/2025 2:09 AM CDT us [facility] Randall Wesley MD LAB POCT ORDERABL ES - DEVICE Final Result Performing Organization Address [facility] de Phone Number [facility] [address] [facility] [place] [address] * POCT glucose (04/21/2025 12:18 AM CDT) Glucose, POC 100 70 - 199 mg/dL Comment: For Glucose values <35 mg/dl when Hematocrit is >60 mg/dl,the test may not accurately detect significant hypoglycemia,and testing in the Laboratory should be considered if clinically indicated. Blood 04/21/2025 12:1 8 AM CDT 04/21/2025 12:18 AM CDT us [facility] Randall Wesley MD LAB POCT ORDERABL ES - DEVICE Final Result Performing Organization Address [facility] Co de Phone Number [facility] [address] [facility] [place] [address] * POCT glucose (04/20/2025 10:23 PM CDT) Glucose, POC 90 70 - 199 mg/dL Comment: For Glucose values <35 mg/dl when Hematocrit is >60 mg/dl,the test may not accurately detect significant hypoglycemia,and testing in the Laboratory should be considered if clinically indicated. Blood 04/20/2025 10:2 3 PM CDT 04/20/2025 10:23 PM CDT us [facility] Randall Wesley MD LAB POCT ORDERABL ES - DEVICE Final Result Performing Organization Address [facility] Co de Phone Number [facility] [address] [facility] [employer] [place], [place] [phone] * POCT glucose (04/20/2025 8:16 PM CDT) Glucose, POC 86 70 - 199 mg/dL Comment: For Glucose values <35 mg/dl when Hematocrit is >60 mg/dl,the test may not accurately detect significant hypoglycemia,and testing in the Laboratory should be considered if clinically indicated. Blood 04/20/2025 8:16 PM CDT 04/20/2025 8:16 PM CDT us [facility] Randall Wesley MD LAB POCT ORDERABL ES - DEVICE Final Result Performing Organization Address [facility] Co de Phone Number [facility] [address] [facility] [place] [address] * POCT glucose (04/20/2025 6:05 PM CDT) Glucose, POC 82 70 - 199 mg/dL Comment: For Glucose values <35 mg/dl when Hematocrit is >60 mg/dl,the test may not accurately detect significant hypoglycemia,and testing in the Laboratory should be considered if clinically indicated. Blood 04/20/2025 6:05 PM CDT 04/20/2025 6:05 PM CDT us [facility] Randall Wesley MD LAB POCT ORDERABL ES - DEVICE Final Result Performing Organization Address [facility] Co de Phone Number [facility] [address] [facility] [employer] [place], [place] [phone] * POCT glucose (04/20/2025 3:57 PM CDT) Glucose, POC 85 70 - 199 mg/dL Comment: For Glucose values <35 mg/dl when Hematocrit is >60 mg/dl,the test may not accurately detect significant hypoglycemia,and testing in the Laboratory should be considered if clinically indicated. Blood 04/20/2025 3:57 PM CDT 04/20/2025 3:57 PM CDT us [facility] Randall Wesley MD LAB POCT ORDERABL ES - DEVICE Final Result Performing Organization Address [facility] de Phone Number [facility] [address] [facility] [employer] [place], [place] [id number] * POCT glucose (04/20/2025 11:36 AM CDT) Glucose, POC 80 70 - 199 mg/dL Comment: For Glucose values <35 mg/dl when Hematocrit is >60 mg/dl,the test may not accurately detect significant hypoglycemia,and testing in the Laboratory should be considered if clinically indicated. Blood 04/20/2025 11:3 6 AM CDT 04/20/2025 11:36 AM CDT us [facility] Randall Wesley MD LAB POCT ORDERABL ES - DEVICE Final Result Performing Organization Address [facility] Co de Phone Number [facility] [address] [facility] [employer] [place], [place] [id number] * hCG, blood, quantitative - Add on lab test (04/20/2025 9:37 AM CDT) Acceptable Yes Blood 04/20/2025 9:37 AM CDT 04/20/2025 9:37 AM CDT Narrative [facility] - 04/20/2025 9:37 AM CDT Name of Test->hCG, blood, quantitative us [facility] Randall Wesley MD LAB BLOOD ORDERAB LES Final Result Performing Organization Address [facility] Co de Phone Number [facility] [address] [place] [address] * Phosphorus - Add on lab test (04/20/2025 9:37 AM CDT) Acceptable Yes Blood 04/20/2025 9:37 AM CDT 04/20/2025 9:37 AM CDT Narrative [facility] 04/20/2025 9:37 AM CDT Name of Test->Phosphorus us [facility] Randall Wesley MD LAB BLOOD ORDERAB LES Final Result Performing Organization Address [facility] de Phone Number [facility] [address] [facility] [employer] [place], [place] [phone] * POCT glucose (04/20/2025 8:36 AM CDT) Glucose, POC 95 70 - 199 mg/dL Comment: For Glucose values <35 mg/dl when Hematocrit is >60 mg/dl,the test may not accurately detect significant hypoglycemia,and testing in the Laboratory should be considered if clinically indicated. Blood 04/20/2025 8:36 AM CDT 04/20/2025 8:36 AM CDT us [facility] Randall Wesley MD LAB POCT ORDERABL ES - DEVICE Final Result Performing Organization Address [facility] Co de Phone Number [facility] [address] Department [employer] [place], [place] [phone] * POCT glucose (04/20/2025 4:26 AM CDT) Glucose, POC 93 70 - 199 mg/dL Comment: For Glucose values <35 mg/dl when Hematocrit is >60 mg/dl,the test may not accurately detect significant hypoglycemia,and testing in the Laboratory should be considered if clinically indicated. Blood 04/20/2025 4:26 AM CDT 04/20/2025 4:26 AM CDT José Miguel Duff MD LAB POCT ORDERABLES - DEVICE Final Result Performing Organization Address [facility] Co de Phone Number [facility] [address] [facility] [place] [address] * Lactate (04/20/2025 12:55 AM CDT) Lactate 1.0 0.7 - 2.0 mmol/L Blood 04/20/2025 12:5 5 AM CDT 04/20/2025 12:59 AM CDT José Miguel Duff MD LAB BLOOD ORDERABLES Final Re sult Performing Organization Address City/[facility] Co de Phone Number [facility] [address] [facility] [employer] [place], [place] [id number] * Beta-hydroxybutyrate (04/20/2025 12:55 AM CDT) Beta-Hydroxybut yrate 0.1 <=0.5 mmol/L Blood 04/20/2025 12:5 5 AM CDT 04/20/2025 1:02 AM CDT José Miguel Duff MD LAB BLOOD ORDERABLES Final Re sult Performing Organization Address [facility] Co de Phone Number [facility] [address] Department [employer] [place], [place] [id number] * hCG, blood, quantitative (04/20/2025 12:55 AM CDT) [facility] hCG, quant <0.6 0.0 - 5.0 IUnits/L Comment: Interpretive Data Male: < 5 IU/L Non- premenopausal Female: <5 IU/L The [employer] hCG Beta Quant assay procedure was used. Results from different manufacturers or methods may not be comparable. Serial testing should be performed using the same method. Interpretive Data was last revised on 2023 Blood 04/20/2025 12:5 5 AM CDT 04/20/2025 1:02 AM CDT us [facility] Randall Wesley MD LAB BLOOD ORDERAB LES Final Result [facility] [address] Department [place] [address] * Phosphorus (04/20/2025 12:55 AM CDT) [facility] Phosphorus, pl 3.8 2.3 - 4.5 mg/dL Blood 04/20/2025 12:5 5 AM CDT 04/20/2025 1:02 AM CDT us [facility] Randall Wesley MD LAB BLOOD ORDERAB LES Final Result [facility] [address] Department [place] [address] * POCT glucose (04/20/2025 12:06 AM CDT) [facility] Glucose, POC 107 70 - 199 mg/dL Comment: For Glucose values <35 mg/dl when Hematocrit is >60 mg/dl,the test may not accurately detect significant hypoglycemia,and testing in the Laboratory should be considered if clinically indicated. Blood 04/20/2025 12:0 6 AM CDT 04/20/2025 12:06 AM CDT us [facility] Randall Wesley MD LAB POCT ORDERABL ES - DEVICE Final Result [facility] [address] Department Poly Adaptive [place], [place] [id number] * POCT glucose (04/19/2025 7:36 PM CDT) Glucose, POC 101 70 - 199 mg/dL Comment: For Glucose values <35 mg/dl when Hematocrit is >60 mg/dl,the test may not accurately detect significant hypoglycemia,and testing in the Laboratory should be considered if clinically indicated. Blood 04/19/2025 7:36 PM CDT 04/19/2025 7:36 PM CDT Domingo Samson MD LAB POCT ORDERABLES - LOUISE CE Final Result Performing Organization Address [facility] Co de Phone Number [facility] [address] [place] [address] * C-peptide (04/19/2025 5:19 PM CDT) C-peptide 4.25 1.10 - 4.40 ng/mL Comment:Testing performed by : [facility], [address] [place]., [address] Blood 04/19/2025 5:19 PM CDT 04/19/2025 7:40 PM CDT us Omar Hearn MD LAB BLOOD ORDERABLES Final Res ult [facility] [address] [place] [address] * POCT glucose (04/19/2025 5:17 PM CDT) Glucose, POC 99 70 - 199 mg/dL Comment: For Glucose values <35 mg/dl when Hematocrit is >60 mg/dl,the test may not accurately detect significant hypoglycemia,and testing in the Laboratory should be considered if clinically indicated. Blood 04/19/2025 5:17 PM CDT 04/19/2025 5:17 PM CDT Domingo Samson MD LAB POCT ORDERABLES - LOUISE CE Final Result Performing Organization Address [facility] Co de Phone Number [facility] [address] [place] [address] * POCT glucose (04/19/2025 3:54 PM CDT) [facility] Glucose, POC 87 70 - 199 mg/dL Comment: For Glucose values <35 mg/dl when Hematocrit is >60 mg/dl,the test may not accurately detect significant hypoglycemia,and testing in the Laboratory should be considered if clinically indicated. Blood 04/19/2025 3:54 PM CDT 04/19/2025 3:54 PM CDT Domingo Samson MD LAB POCT ORDERABLES - LOUISE CE Final Result Performing Organization Address [facility] Co de Phone Number [facility] [address] Department [place] [address] * Respiratory pathogen panel Nasopharyngeal (04/19/2025 3:50 PM CDT) [facility] Influenza A RNA Not Detected Not Detected [facility] [place] [facility] [place] Influenza B RNA Not Detected Not Detected [facility] RSV RNA Not Detected Not Detected [facility] COVID-19 RNA Not Detected Not Detected [facility] Coronavirus 229E RNA Not Detected Not Detected [facility] Coronavirus HKU1 RNA Not Detected Not Detected [facility] Coronavirus NL63 RNA Not Detected Not Detected [facility] Coronavirus OC43 RNA Not Detected Not Detected [facility] Adenovirus DNA Not Detected Not Detected [facility] Metapneumovirus RNA Not Detected Not Detected [facility] Rhinovirus/Enterov irus RNA Not Detected Not Detected [facility] Parainfluenza 1 RNA Not Detected Not Detected [facility] Parainfluenza 2 RNA Not Detected Not Detected [facility] Parainfluenza 3 RNA Not Detected Not Detected [facility] Parainfluenza 4 RNA Not Detected Not Detected [facility] B. pertussis DNA Not Detected Not Detected [facility] B. parapertussis DNA Not Detected Not Detected [facility] C. pneumoniae DNA Not Detected Not Detected [facility] M. pneumoniae DNA Not Detected Not Detected [facility] Comment: Interpretive Data The [employer] FilmArray Respiratory Panel (RP2.1) assay is a multiplexed real-time PCR based nucleic acid test capable of simultaneous qualitative detection and identification of multiple respiratory viral and bacterial nucleic acids, including SARS Coronavirus 2 (the causative agent of COVID-19). The following bacteria, viruses and virus subtypes can be identified using the FilmArray RP2.1 assay: Bordetella pertussis, Bordetella parapertussis, Chlamydia pneumoniae, Mycoplasma pneumoniae, Adenovirus, SARS Coronavirus 2, seasonal coronaviruses (Coronavirus HKU1, Coronavirus NL63, Coronavirus 229E, and Coronavirus OC43), Influenza A, Influenza A subtype H1, Influenza A subtype H3, Influenza A subtype 2009 H1, Influenza B, Metapneumovirus, Parainfluenza 1, Parainfluenza 2, Parainfluenza 3, Parainfluenza 4, RSV, Rhinovirus/Enterovirus. Due to the genetic similarity between human Rhinovirus and Enterovirus, the FilmArray RP2.1 assay cannot reliably differentiate them. Coronavirus OC43 may cross-react with some isolates of Coronavirus HKU1. A dual positive result may be due to cross-reactivity or may indicate a co- infection. The detection and identification of specific viral and bacterial nucleic acids from individuals exhibiting signs and symptoms of a respiratory infection aids in the diagnosis of respiratory infection if used in conjunction with other clinical and epidemiological information. The results of this test should not be used as the sole basis for diagnosis, treatment, or other management decisions. Negative results in the setting of a respiratory illness may be due to infection with pathogens that are not detected by this test. Positive results do not rule out infection/co-infection with other organisms. The agent(s) detected by the FilmArray RP2.1 may not be the definite cause of disease. Additional testing (lab, imaging, etc.) may be necessary when evaluating a patient with possible respiratory tract infection. The FilmArray RP2.1 assay has FDA clearance for testing of GERMINATION TESTING MANAGER swabs. The performance characteristics of this assay have been determined by [facility]. Current interpretive data was last revised on 2021. Nasopharyngeal 04/19/2025 3: 50 PM CDT 04/19/2025 3:59 PM CDT Narrative [facility] - 04/19/2025 4:51 PM CDT Is the Patient experiencing symptoms consistent with COVID?->No Surveillance testing for transplant patient?->No us Omar Hearn MD LAB MICROBIOLOGY - GENERAL ORD ERABLES Final Result [facility] [address] Department [place] [address] MBC * POCT glucose (04/19/2025 2:31 PM CDT) Glucose, POC 78 70 - 199 mg/dL Comment: For Glucose values <35 mg/dl when Hematocrit is >60 mg/dl,the test may not accurately detect significant hypoglycemia,and testing in the Laboratory should be considered if clinically indicated. Blood 04/19/2025 2:31 PM CDT 04/19/2025 2:31 PM CDT us [facility] Unknown LAB POCT ORDERABLES - DEVICE F inal Result Performing Organization Address City/[facility]/ZIP Co de Phone Number [facility] [address] Department [place] [address] * POCT glucose (04/19/2025 1:38 PM CDT) Glucose, POC 105 70 - 199 mg/dL Comment: For Glucose values <35 mg/dl when Hematocrit is >60 mg/dl,the test may not accurately detect significant hypoglycemia,and testing in the Laboratory should be considered if clinically indicated. Blood 04/19/2025 1:38 PM CDT 04/19/2025 1:38 PM CDT us [facility] Unknown LAB POCT ORDERABLES - DEVICE F inal Result Performing Organization Address [facility] Co de Phone Number [facility] [address] [facility] [place] [address] * POCT glucose (04/19/2025 1:02 PM CDT) Glucose, POC 85 70 - 199 mg/dL Comment: For Glucose values <35 mg/dl when Hematocrit is >60 mg/dl,the test may not accurately detect significant hypoglycemia,and testing in the Laboratory should be considered if clinically indicated. Blood 04/19/2025 1:02 PM CDT 04/19/2025 1:02 PM CDT [facility] LAB POCT ORDERABLES - DEVICE F inal Result Performing Organization Address [facility] de Phone Number [facility] [address] [place] [address] * ECG 12 lead (04/19/2025 12:59 PM CDT) 04/19/2025 12:5 9 PM CDT Narrative [facility] - 04/19/2025 1:47 PM CDT Vent Rate: 79 bpm RR Interval: 755 msec SD Interval: 140 msec QRS Duration: 92 msec QT Interval: 344 msec QTC Interval: 379 msec P-R-T [place]: 67 - 72 - 51 degrees IMPRESSION: SINUS RHYTHM POSSIBLE LEFT ATRIAL ENLARGEMENT BORDERLINE ECG Electronically Signed By: Bo Jansen [facility] Card Domingo Samson MD ECG ORDERABLES Final Resu lt Performing Organization Address [facility] Co de Phone Number [facility] Master Equation [facility] * eGFR (04/19/2025 12:55 PM CDT) Pathologist [facility] eGFR >90 >=60 mL/min/1. 73 m2 Comment: Interpretive Data Reference Interval Normal >/= 90 mL/min/1.73m2 Mildly decreased* 60 - 89 mL/min/1.73m2 Mildly to moderately decreased 45 - 59 mL/min/1.73m2 Moderately to severely decreased 30 - 44 mL/min/1.73m2 Severely decreased 15 - 29 mL/min/1.73m2 Kidney Failure < 15 mL/min/1.73m2 *Relative to young adult level Estimated glomerular filtration rate is determined by the 2020 CKD-EPI equation recommended by the National Kidney Foundation (A Unifying Approach to GFR Estimation: Recommendations of the NKF-ASK Task Force on Reassessing the Inclusion of Race in Diagnosing Kidney Disease, JASN 2020). The CKD-EPI equation should not be used for patients with unstable renal function and has not been validated in children and those over 70. Current interpretive data was last reviewed 2021. Blood 04/19/2025 12:5 5 PM CDT 04/19/2025 1:22 PM CDT Domingo Samson MD LAB BLOOD ORDERABLES Final Result Performing Organization Address City/[facility]/ZIP Co de Phone Number [facility] [address] [place], [place] [id number] * Thyroid Function [place] (04/19/2025 12:55 PM CDT) Pathologist [facility] TSH 1.02 0.30 - 4.20 mcIUnit/mL Blood 04/19/2025 12:5 5 PM CDT 04/19/2025 1:22 PM CDT Domingo Samson MD LAB BLOOD ORDERABLES Final Result [facility] [address] Department Medialive [place], [place] [id number] * CBC without differential (04/19/2025 12:55 PM CDT) WBC 8.05 3.80 - 9.90 K/cumm Hgb 14.2 11.9 - 15.5 g/dL [facility] Hct 41.6 35.6 - 45.5 % [facility] Plt 326 150 - 400 K/cumm [facility] MPV 10.1 9.1 - 12.3 fL [facility] RBC 4.60 3.90 - 5.20 M/cumm [facility] MCV 90.4 81.3 - 96.4 fL [facility] MCH 30.9 27.1 - 33.3 pg [facility] MCHC 34.1 32.3 - 35.7 g/dL [facility] RDW CV 12.2 11.1 - 14.9 % [facility] RDW SD 39.7 35.7 - 48.1 fL [facility] NRBC abs 0.00 0.00 - 0.01 K/cumm [facility] Blood 04/19/2025 12:5 5 PM CDT 04/19/2025 1:22 PM CDT Domingo Samson MD LAB BLOOD ORDERABLES Final Result Performing Organization Address [facility] de Phone Number [facility] [address] [employer] [place], [place] [id number] * Hemoglobin A1c (04/19/2025 12:55 PM CDT) [facility] Hgb A1C 5.2 4.0 - 5.6 % Estimated Average Glucose 103 mg/dL [facility] Comment: The ADA recommends reporting an estimated Average Glucose (eAG) with all Hemoglobin A1c results using the equation derived from a study of 507 normal and diabetic adults. Minority populations were underrepresented and children were not included. (Diabetes Care 31:8407-4518, 2008). The eAG is not equivalent to a fasting glucose. Blood 04/19/2025 12:5 5 PM CDT 04/19/2025 1:22 PM CDT Domingo Samson MD LAB BLOOD ORDERABLES Final Result Performing Organization Address City/[facility]/ZIP Co de Phone Number [facility] [address] [facility] Medialive [place], [place] [id number] * Cortisol (04/19/2025 12:55 PM CDT) Pathologist [facility] Cortisol 10.5 4.8 - 19.5 mcg/dl Blood 04/19/2025 12:5 5 PM CDT 04/19/2025 1:22 PM CDT Domingo Samson MD LAB BLOOD ORDERABLES Final Result [facility] [address] Department [place] [address] * (ABNORMAL) Comprehensive metabolic panel (04/19/2025 12:55 PM CDT) [facility] Sodium 139 135 - 145 mmol/L Potassium, pl 4.4 3.3 - 4.9 mmol/L [facility] Comment:Hemolyzed; potassium value may be falsely elevated by as much as 0.6 - 1.0 mmol/L. Suggest redraw and reanalysis Chloride 104 97 - 110 mmol/L [facility] CO2 20(L) 22 - 32 mmol/L [facility] Anion gap 15 2 - 15 mmol/L [facility] BUN 18 6 - 25 mg/dL [facility] Creatinine 0.53(L) 0.60 - 1.10 mg/dL [facility] Glucose 86 70 - 199 mg/dL [facility] Comment: Interpretive Data Fasting glucose >/= 126 mg/dl is diagnostic for diabetes. Fasting is defined as no caloric intake for at least 8 hours. Fasting glucose between 100 mg/dl to 125 mg/dl is diagnostic of prediabetes. In a patient with classic symptoms of hyperglycemia or hyperglycemic crisis, a random glucose >/= 200 mg/dl is diagnostic for diabetes. In the absence of unequivocal hyperglycemia, results should be confirmed by repeat testing. The classification and Diagnosis of Diabetes Diabetes Care 202; 46: S19-S40. Current interpretive data was last revised 2022. Calcium 9.0 8.5 - 10.3 mg/dL [facility] Bilirubin, total 0.2 0.1 - 1.2 mg/dL [facility] Protein, pl 7.0 6.5 - 8.5 g/dL [facility] Albumin 4.2 3.5 - 5.0 g/dL [facility] Alk phos 19(L) 40 - 130 Units/L [facility] ALT 18 7 - 45 Units/L [facility] Comment:Moderately Hemolyzed Specimen AST 31 10 - 45 Units/L [facility] Comment:Moderately Hemolyzed Specimen Blood 04/19/2025 12:5 5 PM CDT 04/19/2025 1:22 PM CDT Domingo Samson MD LAB BLOOD ORDERABLES Final Result Performing Organization Address [facility] Co de Phone Number [facility] [address] Department [place] [address] * POCT glucose (04/19/2025 12:54 PM CDT) [facility] Glucose, POC 87 70 - 199 mg/dL Comment: For Glucose values <35 mg/dl when Hematocrit is >60 mg/dl,the test may not accurately detect significant hypoglycemia,and testing in the Laboratory should be considered if clinically indicated. Blood 04/19/2025 12:5 4 PM CDT 04/19/2025 12:54 PM CDT Result [facility] Not[facility] Unknown LAB POCT ORDERABLES - DEVICE F inal Result Performing Organization Address [facility] Co de Phone Number [facility] [address] Department [place] [address] from Last 3 Months Insurance [facility] H[facility]/PPO Address: [address] [address] [place] [address] [facility] H[facility]/PPO Address: [address] [place] [id number] Advance Directives For more information, please contact: [phone] * Full Code (Latest Code Status on File) Date Activated Date Inactivated Comments 04/19/2025 10:05 PM 04/24/2025 7:10 PM Care Teams Horticultural Technical Officer Relationship Specialty Start Date End Date Yolande Rodriguez NP [address] [place] [address] PCP - General Nurse Practitioner 04/09/25
--- OUTSIDE RECORDS SUMMARY | 2025-05-22 12:58 | XMS_ITS | Clinical Summary ---
Author Organization [facility] Address [address] [facility] [place] [address] Care Team Providers Care Steam Table Associate Name Role Phone Emma Sueholly Lowe APRN-ORGANIZATION DEVELOPMENT CONSULTANT Primary Care Provider Source Comments [facility],non-owned Affiliates and Associated Physician Practices is amultiple site organization consisting of ambulatory clinics and hospital sitesin [place], [place], [place] and [place]. This disclosure is being madepursuant to the Care Everywhere program and may not contain all information available regarding this patient. 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 Not on file Not on file Last Filed Vital Signs Vital Sign Reading Time Taken Comments Blood Pressure 121/82 10/27/2024 3:57 PM CDT Pulse 93 10/27/2024 3:57 PM CDT Temperature 36.2 C (97.1 F) 06/19/2024 10:07 AM INTERNATIONAL STUDENT COUNSELOR Respiratory Rate 18 06/19/2024 10:07 AM INTERNATIONAL STUDENT COUNSELOR Oxygen Saturation 98% 10/27/2024 3:57 PM CDT [...] Office Visit [facility] - Neurology [address] [place] [address], [facility] [place] [phone] Toney Wolfe, [place]ILLA-ORGANIZATION DEVELOPMENT CONSULTANT [address] [place] [address] Health Maintenance Due Date Last [...] ve Non-react peter 04/10/2024 1:44 PM CDT [facility] Comment:No Laboratory eviden ce of HIV infection. Blood BLOOD SPECIMEN / Unknown Lab Venipuncture / Unknown 04/10/2024 10:40 AM CDT 04/10/2024 12:14 PM CDT Sunshine Sue RESTAURANT CREW PERSON-ORGANIZATION DEVELOPMENT CONSULTANT LAB - CHEMISTRY ORDERAB LES Final Result Performing Organization Address City/[facility] Co de Phone Number [address] [address], [facility] [phone] * HEPATITIS C ANTIBODY (04/10/2024 10:40 AM CDT) Hepatitis C Antibody Non-react peter Non-reac tive 04/10/2024 1:44 PM CDT [facility] Comment:Hepatitis C Antibody screen indicates no serologic [...] ORDERAB LES Final Result Performing Organization Address City/[facility] Co de Phone Number [address] [address], [facility] [phone] from Last 3 Months or Most Recently Relevant to Health Maintenance Care Teams Steam Table Associate Relationship Specialty Start Date End Date Sunshine Sue APRN-CNP [address] OF [facility] [place] [address] PCP - General Nurse Practitioner Family 04/17/23
--- OUTSIDE RECORDS SUMMARY | 2025-05-22 12:58 | XMS_ITS | Clinical Summary ---
Author Organization [facility] Address [address] [place] [address] Care Team Providers Care Teacher Visually Impaired Name Role Phone New Referring, Provider Primary [...] on file Legal Sex Female 5:51 PM RESIDENTIAL SALES Gender Identity Not on file Sexual Orientation [...] Cancer Screening with HPV 2022 COVID-19 Vaccine (2024-2 6 season) 2025 Influenza Adult (#1) 2025 Hepatitis A Vaccines Aged Out No long er eligible based on patient's age to complete this topic Meningococcal B Vaccine Aged Out No l [...] to complete this topic Insurance Care Teams Teacher Visually Impaired Relationship Specialty Start Date End Date New Referring, Provider PCP - General UNKNOWN PHYSICIAN SPECIALTY 04/30/19
--- OUTSIDE RECORDS SUMMARY | 2025-05-22 12:58 | XMS_ITS | Encounter Summary ---
Author Organization [facility] Healthcare Address [address] [place] [address] Care Team Providers Care Gas Engine Repairer Name Role Phone Yolande Rodriguez NP Primary Care Provider [phone] Reason for Referral * Diagnostic Lab (Routine) - Pending Review Specialty Diagnoses / Procedures Referred By Contac t Referred To Contact Lab Diagnoses Low serum alkaline phosphatase Procedures serum pyridoxal 5'-phosphate (PLP) - [place] [address] [place] [address] Phone: tel: fax: Referral ID Status Reason Start Date Expiration Date V isits Requested Visits Authorized [id number] Pending Review 05/22/2025 06/21/2026 1 1 ING MACHINE OPERATOR * Diagnostic Lab (Routine) - Pending Review Specialty Diagnoses / Procedures Referred By Contac t Referred To Contact Lab Diagnoses Low serum alkaline phosphatase Procedures 24 hours urinary phosphoethanolamine (PEA) - [place] [address] [address] Phone: tel: fax: Referral ID Status Reason Start Date Expiration Date V isits Requested Visits Authorized [id number] Pending Review 05/22/2025 06/21/2026 1 1 ING MACHINE OPERATOR Encounter Details Date Type Department Care Team (Late st Contact Info) Description 05/22/2025 Orders Only [facility] [address] [place] [address] [place] [address] [place] [address] Low serum alkaline phosphatase (Primary Dx) Social History Tobacco Use Types Packs/Day Years [...] often do you attend chur ch or worship services? More than 4 times per year 04/21/2025 Do you belong to any clubs o r organizations such as hoahaoism groups, unions, fraternal or athletic groups, or [...] any time in the past 12 m [facility], were you homeless or living in a fpc (including now)? No 04/21/2025 [facility] Utilities Answer Date Recorded In the past 12 months has [employer], gas, oil, or water [employer] threatened to shut off services in your home? No 04/21/2025 Personal Safety Answer Date Recorded Have you ever been in or are you currently in a harmful physical or emotional relationship or is someone making you feel afraid or unsafe? 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 Gender Identity Not on file Sexual Orientation Not on file documented as of this encounter Plan of Treatment Scheduled Orders Name Type Priority Associated Diagnoses Orde r Schedule 24 hours urinary phosphoethanolamine (PEA) - Miscellaneous Test Lab Routine Low serum alkaline phosphatase Expected: 05/22/2025, Expires: 05/22/2026 Alkaline phosphatase, isoenzymes Lab Routine Low serum alkaline phosphatase Expected: 05/22/2025, Expires: 05/22/2026 serum pyridoxal 5'-phosphate (PLP) - Miscellaneous Test Lab Routine Low serum alkaline phosphatase Expected: 05/22/2025, Expires: 05/22/2026 documented as of this encounter Visit Diagnoses Diagnosis Low serum alkaline phosphatase- Primary documented in this encounter Care Teams Gas Engine Repairer Relationship Specialty Start Date End Date Yolande Rodriguez NP [address] [place] [address] PCP - General Nurse Practitioner 04/09/25 documented as of this encounter
--- OUTSIDE RECORDS SUMMARY | 2025-05-22 12:58 | XMS_ITS | Patient Health Record ---
Author Organization [facility] UAV Navigation Address [address] [facility] [address] [place] [address] Care Team Providers Care Physical Instructor Name Role Phone Bhavik Su Unavailable [phone] Eric Fernández Unavailable [phone] Allergies No Known Allergies Results Component Value Reference Range Flag Notes UDT Reviewed date:06/03/2024 02:47:48 PM Interpretation: Performing Lab: Notes/Report: Amphetamine (AMP) POS 0 - 1000 ng/ml Buprenorphine (BUP) NEG 0 - 10 ng/ml Oxazepam (BZO) NEG 0 - 300 ng/ml Cocaine (EDER) POS 0 - 300 ng/ml Methamphetamine (mAMP) NEG 0 - 300 ng/ml Methylenedioxymethamphetamin e (MDMA) NEG 0 - 500 ng/ml Morphine (MOP) NEG 0 - 25 ng/ml Methadone (MTD) NEG 0 - 300 ng/ml Oxycodone (OXY) NEG 0 - 300 ng/ml THC POS 0 - 50 ng/ml x NEG 0 - 1000 ng/ml x NEG 0 - 1000 ng/ml x NEG 0 - 300 ng/ml x NEG 0 - 300 ng/ml x NEG 0 - 300 ng/ml DRUG MONITOR,AMPHETAMINE, QN , URINE ([id number]) Reviewed date:06/11/2024 02:33:46 PM Interpretation: Performing Lab:CB, [facility] [address], [id number] Tarun Alves Notes/Report: FASTING: UNKNOWN Amphetamine NEGATIVE <250 ng/mL Methamphetamine NEGATIVE <250 ng/mL Amphetamines Comments See LDT Notes DRUG MONITOR, MARIJUANA META B, QN, URINE ([id number]) Reviewed date:06/11/2024 02:33:33 PM Interpretation: Performing Lab:[facility] [address], [place]PxpnGF[address] Tarun Alves Notes/Report: FASTING: UNKNOWN Marijuana Metabolite 96 <5 ng/mL H Marijuana Comments See Jessica browning Notes, LDT Notes DRUG MONITOR, MDMA/MDA, QN, URINE ([id number]) Reviewed date:06/11/2024 02:33:25 PM Interpretation: Performing Lab:[facility] [id number], [id number] Tarun Alves, Director - [id number] [place] [address] Notes/Report: FASTING: UNKNOWN MDA NEGATIVE <200 ng/mL [...] analytical performance characteristics have been determined by [facility]. It has not been cleared or approved by the FDA. This assay has been validated pursuant to the CLIA regulations and is used for clinical purposes. Healthcare Providers needing Interpretation assistance, please contact us at [phone] ( ) M-F, 8am to 10pm EST DRUG MONITOR, COCAINE METAB, QN, URINE ([id number]) Reviewed date:06/11/2024 02:33:40 PM Interpretation: Performing Lab:[facility] [address], [place] [id number] Tarun Alves Notes/Report: FASTING: UNKNOWN Benzoylecgonine 156 [...] decision-maker Yes Do you have Power of Plumber Supervisor for Health or [facility]? 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) Attention and concentration deficit (R41.840) Active confirmed Problem Severe recurrent major depression without psychotic features (34839255) Severe episode of recurrent major depressive disorder, without psychotic features (F33.2) Active confirmed Problem Nondependent cannabis abuse (598669322) Marijuana use (F12.90) Active confirmed Problem Feeling suicidal (220397322) Passive suicidal ideations (R45.851) Active confirmed Vital Signs Heart Rate 72 /min 11/11/2024 Height-cm 165.1 cm 11/11/2024 Blood pressure diastolic 75 mm Hg 11/11/2024 Weight-kg 62.6 kg 11/11/2024 Height 65 in 11/11/2024 Blood pressure systolic 113 mm Hg 11/11/2024 Weight 138 lbs 11/11/2024 BMI 22.96 kg/m2 11/11/2024 Encounters Encounter Location Date Provider Diagnosis [facility] [email or web address] [facility], [place] [address] [address] 06/03/2024 Eric Clubb Severe episode of recurrent major depressive disorder, without psychotic features F33.2 ; Passive suicidal ideations R45.851 and Marijuana use F12.90 [facility] [place] [facility] [address] [facility] [address] [place] [address] 07/29/2024 Bhavik Su Severe episode of recurrent major depressive disorder, without psychotic features F33.2 and Generalized anxiety disorder F41.1 [facility] [place] [facility] [address] [address] 08/26/2024 Bhavik Su Severe episode of recurrent major depressive disorder, without psychotic features F33.2 and Generalized anxiety disorder F41.1 [facility] [place] [facility] [address] [facility] [address] [place] [address] 11/11/2024 Bhavik Su Encounter for screen ing for cardiovascular disorders Z13.6 ; Severe episode of recurrent major depressive disorder, without psychotic features F33.2 ; Generalized anxiety disorder F41.1 and Attention and concentration deficit R41.840 [facility] [place] [facility] [address] [facility] [address] [place] [address] 12/12/2024 Bhavik Valdovinosoza [facility] [place] [facility] [address] [facility] [address] [place] [address] 12/23/2024 Bhavik Su [facility] [address] [place] [address] [place] [address] 07/30/2024 Bhavikjany Su [facility] [address] [place] [address] [place] [address] 08/21/2024 Bhavik Su [facility] [address] [place] [address] [place] [address] 08/22/2024 Bhavikjany Su [facility] [address] [place] [address] [place] [address] 09/22/2024 Bhavik Su [facility] [address] [place] [address] [place] [address] 11/07/2024 Bhavikjany Ledesmaa Assessments Encounter Date Diagnosis (ICD Code) Assessment [...] address anxiety symptoms. Continue counseling sessions in [place] as feasible with work schedule. Note difficulty attending sessions regularly due to work constraints. 3. Post-Traumatic Stress Disorder - Plan: Continue counseling sessions in [place] as feasible with work schedule. 4. Attention Deficit Hyperactivity Disorder - Plan: Continue lisdexamfetamine as prescribed by primary care provider. 5. Insomnia - Plan: Monitor sleep quality after starting Prozac (fluoxetine). 6. Suicidal ideation - Plan: Provide the patient with the crisis prevention hotline number (541) for worsening suicidal thoughts. Encourage the patient [...] address anxiety symptoms. Continue counseling sessions in [place] as feasible with work schedule. Note difficulty attending sessions regularly due to work constraints. 3. Post-Traumatic Stress Disorder - Plan: Continue counseling sessions in [place] as feasible with work schedule. 4. Attention [...] address anxiety symptoms. Continue counseling sessions in [place] as feasible with work schedule. Note difficulty attending sessions regularly due to work constraints. 3. Post-Traumatic Stress Disorder - Plan: Continue counseling sessions in [place] as feasible with work schedule. 4. Attention Deficit Hyperactivity Disorder - Plan: Continue lisdexamfetamine as prescribed by primary care provider. 5. Insomnia - Plan: Monitor sleep quality after starting Prozac (fluoxetine). 6. Suicidal ideation - Plan: Provide the patient with the crisis prevention hotline number (618) for worsening suicidal thoughts. Encourage the patient [...] address anxiety symptoms. Continue counseling sessions in [place] as feasible with work schedule. Note difficulty attending sessions regularly due to work constraints. 3. Post-Traumatic Stress Disorder - Plan: Continue counseling sessions in [place] as feasible with work schedule. 4. Attention Deficit Hyperactivity Disorder - Plan: Continue lisdexamfetamine as prescribed by primary care provider. 5. Insomnia - Plan: Monitor sleep quality after starting Prozac (fluoxetine). 6. Suicidal ideation - Plan: Provide the patient with the crisis prevention hotline number (658) for worsening suicidal thoughts. Encourage the patient [...] ADHD medication prescribed by Molly Coleman at [facility] in [place]. Plan: - Encourage the patient to continue [...] vitamin deficiencies, and hormone changes, with the client resolution specialist. 5. Medication management: - Patient is currently [...] the anniversary of a friend's , requesting FMLA documentation for episodes of depression and anxiety. [...] Insured Coverage Start Date Coverage End Date Milona [address] [place] [address] [id number] THUAN ALFARO Self - patient is the [...] at 15 years old, inpatient psych hospita lization for SI
== END 2025-05-22 12:55 | disposition home or self-care (01) ==
LOC: ANHIMG 12:54
PROVIDERS: PCP Nurse Practitioner Family; Visit Provider Psychiatry & Neurology Neurology
DX: R42 Dizziness and giddiness (principal); R51.9 Headache, unspecified
CPT/HCPCS: 70553; A9577

== ENCOUNTER 2025-05-25 14:41 | Outpatient (CLI) | payer OTHER, SELFPAY ==
--- OUTSIDE RECORDS SUMMARY | 2024-07-04 09:00 | XMS_ITS ---
Author Organization [facility] As [employer] [facility] Address [facility] [address] [facility] [address] [place] [address] Care Team Providers Care Crop Grain Or Livestock Farm Manager Name Role Phone Bhavik Su Unavailable [phone] REASON FOR VISIT [facility] Social History Sex Assigned At : Social History Observation Description Sex Assigned At Female Encounters Encounter Location Date Provider Diagnosis [facility] [address] [address] 07/04/2024 Bhavik Su Plan Of Treatment No Information Progress Notes * [place] MCKEONSTANOB:1990 (35 yo F)Acc No.[id number]:07/04/2024 Patient: THUAN ROONEY Provider: LENCHO CARRILLO :1990 A ge:34 Y S ex:Female Date:07/04/2024 Phone: Address:[address] [place], [place] [address] Subjective: * Chief Complaints: * B [facility] * Electronic signature of LENCHO Sims on 2025 at 05:27 PM CAR BODY INSPECTOR Sign off status: Pending * Provider: LENCHO CARRILLO Date: 0 07/04/2024 Generated for Jonah lombardo/Trini/eTransmitting on: 07/25/2024 05:27 PM CAR BODY INSPECTOR
--- OUTSIDE RECORDS SUMMARY | 2024-12-23 05:45 | XMS_ITS ---
Author Organization [facility] As [employer] [facility] Address [facility] [address] [address] Care Team Providers Care Industrial Court Magistrate Name Role Phone Bhavik Su Unavailable [phone] REASON FOR VISIT Follow Up Social History Sex Assigned At : Social History Observation Description Sex Assigned At Female Encounters Encounter Location Date Provider Diagnosis [place] [address] [address] 12/23/2024 Bhavik Su Plan Of Treatment No Information Progress Notes * [place] MCKEONSTANOB:1990 (35 yo F)Acc No.[id number]:12/23/2024 Patient: THUAN ROONEY Provider: LENCHO CARRILLO :1990 A ge:34 Y S ex:Female Date:12/23/2024 Phone: Address:[address] [place], [place] [phone] Subjective: * Chief Complaints: * F ollow Up Billing Information: * Procedure Codes: * Electronic signature of LENCHO Sims on 2025 at 05:27 PM MECHANICAL REPAIR WORKER Sign off status: Pending * Provider: LENCHO CARRILLO Date: 0 12/23/2024 Generated for Jonah lombardo/Trini/eTransmitting on: 07/25/2024 05:27 PM MECHANICAL REPAIR WORKER
--- OUTSIDE RECORDS SUMMARY | 2025-02-02 10:15 | XMS_ITS ---
Author Organization [facility] As [employer] [facility] Address [facility] [address] [address] Care Team Providers Care Live In Housekeeper Nanny Name Role Phone Bhavik Su Unavailable [phone] REASON FOR VISIT follow up Social History Sex Assigned At : Social History Observation Description Sex Assigned At Female Encounters Encounter Location Date Provider Diagnosis [place] [address] [address] [address] 02/02/2025 Bhavik Su Plan Of Treatment No Information Progress Notes * [place] MCKEONSTANOB:1990 (35 yo F)Acc No.[id number]:02/02/2025 Patient: THUAN ROONEY Provider: LENCHO CARRILLO :1990 A ge:34 Y S ex:Female Date:02/02/2025 Phone: Address:[address] [place], [place] [address] Subjective: * Chief Complaints: * F ollow up Billing Information: * Procedure Codes: * Electronic signature of LENCHO Sims on 2025 at 05:27 PM PHOTONICS ENGINEER Sign off status: Pending * Provider: LENCHO CARRILLO Date: 0 02/02/2025 Generated for Jonah lombardo/Trini/eTransmitting on: 07/25/2024 05:27 PM PHOTONICS ENGINEER
--- NOTE | 2025-05-25 15:00 | ECHO_ITS ---
Patient Info Name: Sheryl Alfaro Age: 35 years : 1990 Gender: Female Ht: 64 in Wt: 138 lbs BSA: 1.69 m2 HR: 76 bpm BP: 115 / 80 mmHg Heart Rhythm: Sinus Rhythm Technical Quality: Good Exam Date: 05/25/2025 3:06 PM Patient Status: O Admit Date: 05/25/2025 Exam Type: CA echo doppler color flow Complete two-dimensional, color flow and Doppler transthoracic echocardiogram is performed. Three dimensional echocardiographic imaging is performed during the transthoracic echocardiogram. Gun Perforator: Angeles Mancuso Attending Provider: Yolande Rodriguez Summary 1. Complete two-dimensional, color flow and Doppler transthoracic echocardiogram is performed. 2. Left ventricular chamber dimension is normal. 3. Left ventricular systolic function is normal, estimated at 65-70. 4. The left ventricular diastolic function is normal. 5. E/e' 6 is not elevated. 6. Global longitudinal strain is normal at -22.4%. 7. There is trace tricuspid valve regurgitation. 8. No pulmonary hypertension, estimated pulmonary arterial systolic pressure is 20 mmHg. Left Ventricle E/e' 6 is not elevated. Left ventricular chamber dimension is normal. Left ventricular systolic function is normal, estimated at 65-70. The left ventricular diastolic function is normal. Global longitudinal strain is normal at -22.4%. Right Ventricle Right ventricular chamber dimension is normal. Right ventricular systolic function is normal and with normal TAPSE 2.2 cm. Left Atria Left atrial chamber dimension is normal. Right Atria Right atrial chamber dimension is normal. Aortic Valve The aortic valve is trileaflet. There is no aortic valve stenosis. There is no aortic valve regurgitation. Pulmonic Valve There is no pulmonic regurgitation. Mitral Valve There is no mitral valve stenosis. There is no mitral valve regurgitation. Tricuspid Valve There is trace tricuspid valve regurgitation. No pulmonary hypertension, estimated pulmonary arterial systolic pressure is 20 mmHg. Pericardium/Pleural There is no pericardial effusion. Inferior Vena Cava Normal inferior vena cava with >50% collapse upon inspiration consistent with normal right atrial pressure, 5 mmHg. Aorta The aortic root size at the sinus of Valsalva is normal. Left Ventricular Outflow Tract Name Value Normal LVOT 2D LVOT Diameter 2.0 cm LVOT Doppler LVOT Peak Velocity 97 cm/s LVOT Peak Gradient 4 mmHg LVOT Mean Gradient 2 mmHg LVOT VTI 18 cm LVOT VTI/AV VTI Ratio 0.7 LVOT Stroke Volume 54 ml LVOT CO 3.9 l/min LVOT CI 2.3 l/min/m2 Pulmonic Valve Name Value Normal RVOT Doppler RVOT Peak Velocity 106 cm/s RVOT Peak Gradient 5 mmHg PV Doppler PV Peak Velocity 107 cm/s PV Peak Gradient 5 mmHg Mitral Valve Name Value Normal MV Diastolic Function MV E Peak Velocity 84 cm/s MV A Peak Velocity 63 cm/s MV E/A 1.3 MV Decel Time (PW) 244 ms MV Annular TDI MV E/e' (Septal) 8.7 MV E/e' (Lateral) 5.5 MV E/e' (Average) 7.1 Tricuspid Valve Name Value Normal TV Regurgitation Doppler TR Peak Velocity 193 cm/s TR Peak Gradient 12 mmHg Estimated PAP/RSVP RA Pressure 5 mmHg <=5 PA Systolic Pressure 20 mmHg <36 RV Systolic Pressure 20 mmHg <36 TV Annular TDI TV Lateral Bryanna s' Velocity 12.9 cm/s >=9.5 Aorta Name Value Normal Ascending Aorta Ao Root Diameter (MM) 2.6 cm Ao Root Diam Index (MM) 1.5 cm/m2 Aortic Valve Name Value Normal AV Doppler AV Peak Velocity 144 cm/s AV Peak Gradient 8 mmHg AV Mean Gradient 4 mmHg AV VTI 27 cm AV Area (Cont Eq VTI) 2.0 cm2 >=3.0 AV Area (Cont Eq Joseluis) 2.1 cm2 AV DI (Joseluis) 0.67 AV Regurgitation 2D LVOT Area 3.1 cm2 Ventricles Name Value Normal LV Dimensions 2D/MM IVS Diastolic Thickness (2D) 0.7 cm 0.6-1.0 LVID Diastole (2D) 3.9 cm 3.8-5.2 LVIW Diastolic Thickness (2D) 0.7 cm 0.6-0.9 LVID Systole (2D) 2.2 cm 2.2-3.5 LVOT Diameter 2.0 cm LV Mass (2D Cubed) 70.25 g 67.00-162.00 LV Mass Index (2D Cubed) 42 g/m2 43-95 Relative Wall Thickness (2D) 0.35 <=0.42 LV Fractional Shortening/Ejection Fraction 2D/MM LV Fractional Shortening (2D) 44 % 27-45 LV EF (2D Teichmegz) 75 % LV Diastolic Volume (4C MOD) 50 ml LV EF (4C MOD) 62 % LV Diastolic Volume (2C MOD) 37 ml LV EF (2C MOD) 72 % LV Diastolic Volume (BP MOD) 44 ml 46-106 LV Diastolic Volume Index (BP MOD) 26 ml/m2 29-61 LV Systolic Volume (BP MOD) 14 ml 14-42 LV Systolic Volume Index (BP MOD) 8 ml/m2 8-24 LV EF (BP MOD) 67 % 54-74 LV Diastolic Length (4C) 7.9 cm LV Systolic Length (4C) 6.0 cm LV Stroke Volume (4C MOD) 31 ml Atria Name Value Normal LA Dimensions LA Dimension (MM) 3.5 cm 2.7-3.8 LA Volume (4C A-L) 41 ml LA Volume (BP A-L) 41 ml RA Dimensions RA Area (4C) 12.4 cm2 <=18.0 EchoPAC Name Value Normal MALIA LV Apical Anterior Longitudinal Strain (MALIA) -25.8 % LV Apical Anteroseptal Longitudinal Strain (MALIA) -22.8 % LV Apical Inferior Longitudinal Strain (MALIA) -26.9 % LV Apical Lateral Longitudinal Strain (MALIA) -28.5 % LV Apical Posterior Longitudinal Strain (MALIA) -20.6 % LV Apical Septal Longitudinal Strain (MALIA) -28.5 % AV Closure (MALIA) 355 ms LV Basal Anterior Longitudinal Strain (MALIA) -23.5 % LV Basal Anteroseptal Longitudinal Strain (MALIA) -19.7 % LV Basal Inferior Longitudinal Strain (MALIA) -22.7 % LV Basal Anterolateral Longitudinal Strain (MALIA) -22.0 % LV Basal Inferolateral Longitudinal Strain (MALIA) -18.9 % LV Basal Inferoseptal Longitudinal Strain (MALIA) -15.2 % LV Global Longitudinal Strain (2C MALIA) -23.8 % LV Global Longitudinal Strain (4C MALIA) -23.0 % LV Global Longitudinal Strain (APLAX MALIA) -20.3 % LV Global Longitudinal Strain (MALIA) -22.4 % LV Mid Anterior Longitudinal Strain (MALIA) -24.6 % LV Mid Anteroseptal Longitudinal Strain (MALIA) -22.0 % LV Mid Inferior Longitudinal Strain (MALIA) -23.2 % LV Mid Anterolateral Longitudinal Strain (MALIA) -24.7 % LV Mid Inferolateral Longitudinal Strain (MALIA) -19.8 % LV Mid Inferoseptal Longitudinal Strain (MALIA) -20.3 % Report Signatures
--- OUTSIDE RECORDS SUMMARY | 2025-05-25 17:27 | XMS_ITS | Clinical Summary ---
Author Organization [facility] Address [address] [place] [address] Care Team Providers Care Civil Service Worker Name Role Phone Yolande Rodriguez NP Primary Care Provider [phone] Allergies No known active allergies Medications albuterol [...] Description 05/22/2025 Orders Only [facility] [address], [place] [address] Marcelina Yi MD Low serum alkaline phosphatase (Primary Dx) 04/28/2025 7:55 AM CDT Lab [address] [address] Low serum alkaline phosphatase 04/27/2025 1:30 PM CDT Office Visit [facility] [address] [address] Marcelina Yi MD Hypoglycemia, unspecified (Primary Dx); Low serum alkaline phosphatase; Fatigue, unspecified type 04/19/2025 12:42 PM CDT - 04/24/2025 3:05 PM CDT Hospital Encounter [facility] [address] [place] [address] Domingo Samson MD Anacius, Elisabeth, MD Avagyan, Juletta, MD Shahnawaz, MD Bella Patel, Johnny Rios, DO Hypoglycemia (Primary Dx); Other fatigue Discharge Disposition: Discharge to home or self care from Last 3 Months Surgical History Surgery Date Site/Laterality Comments WISDOM TOOTH EXTRACTION Oral Surgery Tooth Extraction [place] Tooth - (Added by ) Medical History [...] often do you attend chur ch or hindu services? More than 4 times per year 04/21/2025 Do you belong to any clubs o r organizations such as sabianism groups, unions, fraternal or athletic groups, or [...] any time in the past 12 m [facility], were you homeless or living in a m[facility] (including now)? No 04/21/2025 [facility] Utilities Answer Date Recorded In the past 12 months has th e yoonew, gas, oil, or water company threatened to [...] on file Legal Sex Female 1:36 AM [employer] Gender Identity Not on file Sexual Orientation [...] 4 :07 PM CDT BLOOD MISC TO [place]ERNON Routine 04/21/2025 3: 36 PM CDT INSULIN-LIKE [...] phosphatase, bone specific (04/28/2025 7:59 AM CDT) [facility] Alk phos, bone 3.2 mcg/L [place] [facility] Comment: REFERENCE VALUE <=14 (Premenopausal) <=22 (Postmenopausal) ADDITIONAL INFORMATION Liver-derived alkaline phosphatase (ALP) increases apparent measured bone alkaline phosphatase (BAP) in this assay by 2.5 mcg/L to 5.8 mcg/L for every 100 U/L of liver ALP. Accordingly, serum specimens with significant elevations of liver ALP activity may yield artificially elevated results in the BAP assay. Test Performed by: [place] [address] Lace Stripper: Kate Wilde Ph.D.; CLIA# [id number] Blood 04/28/2025 7:59 AM CDT 04/28/2025 10:32 AM CDT Marcelina Yi MD LAB BLOOD ORDERABLES Final Resul t [facility] [address] [facility] Department [place] [address] [facility] Lab * (ABNORMAL) Alkaline phosphatase (04/28/2025 7:59 AM CDT) [facility] Alk phos 18(L) 40 - 130 Units/L Blood 04/28/2025 7:59 AM CDT 04/28/2025 10:33 AM CDT Marcelina Yi MD LAB BLOOD ORDERABLES Final Resul t Performing Organization Address City/[facility]/ZIP Co de Phone Number EBEN [address] [address] * PTH (04/28/2025 7:59 AM CDT) [facility] PTH 28 15 - 65 pg/mL Blood 04/28/2025 7:59 AM CDT 04/28/2025 10:32 AM CDT Marcelina Yi MD LAB BLOOD ORDERABLES Final Resul t Performing Organization Address [facility] de Phone Number EBEN [address] [address] * POCT glucose (04/27/2025 1:44 PM CDT) [facility] Glucose Blood, POC 104 Normal Fasting 70 - 100, Random <200 mg/dL Blood 04/27/2025 1:44 PM CDT Marcelina Yi MD POINT OF CARE TEST ORDERABLES Fi nal Result * POCT glucose (04/24/2025 12:07 PM CDT) [facility] Glucose, POC 93 70 - 199 mg/dL Comment: For Glucose values <35 mg/dl when Hematocrit is >60 mg/dl,the test may not accurately detect significant hypoglycemia,and testing in the Laboratory should be considered if clinically indicated. Blood 04/24/2025 12:0 7 PM CDT 04/24/2025 12:07 PM CDT Johnny Blanco DO LAB POCT ORDERABLES - D DENISE Final Result Performing Organization Address City/[facility]/ZIP Co de Phone Number [facility] [address] [place] [address] * (ABNORMAL) POCT glucose (04/24/2025 8:52 AM CDT) [facility] Glucose, POC 201(H) 70 - 199 mg/dL Comment: For Glucose values <35 mg/dl when Hematocrit is >60 mg/dl,the test may not accurately detect significant hypoglycemia,and testing in the Laboratory should be considered if clinically indicated. Blood 04/24/2025 8:52 AM CDT 04/24/2025 8:52 AM CDT Johnny Blanco DO LAB POCT ORDERABLES - D EVICE Final Result Performing Organization Address [facility] de Phone Number [facility] [address] [facility] [employer] [place], [place] [id number] * POCT glucose (04/24/2025 7:57 AM CDT) [...] D EVICE Final Result Performing Organization Address [facility] de Phone Number [facility] [address] [facility] [employer] [place] [address] * POCT glucose (04/24/2025 5:54 AM CDT) [...] D EVICE Final Result Performing Organization Address City/[facility]/ZIP Co de Phone Number [facility] [address] Department [place] [address] * POCT glucose (04/23/2025 9:38 PM CDT) [...] D EVICE Final Result Performing Organization Address [facility] Co de Phone Number [facility] [address] Department [employer] [place] [address] * POCT glucose (04/23/2025 5:09 PM CDT) [...] D EVICE Final Result Performing Organization Address [facility] Co de Phone Number [facility] [address] Department [employer] [place] [address] * POCT glucose (04/23/2025 3:52 PM CDT) [...] D EVICE Final Result Performing Organization Address [facility] Co de Phone Number [facility] [address] Department [employer] [place] [address] * Magnesium - Add on lab test (04/23/2025 2:58 PM CDT) [facility] Acceptable Yes Blood 04/23/2025 2:58 PM CDT 04/23/2025 2:58 PM CDT Narrative [facility] - 04/23/2025 2:58 PM CDT Name of Test->Magnesium Monse Rajan MD LAB BLOOD ORDERABLES Final Resul t Performing Organization Address [facility] Co de Phone Number [facility] [address] Department [employer] [place], [place] [phone] * POCT glucose (04/23/2025 2:01 PM CDT) [facility] Glucose, POC 130 70 - 199 mg/dL Comment: For Glucose values <35 mg/dl when Hematocrit is >60 mg/dl,the test may not accurately detect significant hypoglycemia,and testing in the Laboratory should be considered if clinically indicated. Blood 04/23/2025 2:01 PM CDT 04/23/2025 2:01 PM CDT Johnny Blanco DO LAB POCT ORDERABLES - D EVICE Final Result Performing Organization Address [facility] Co de Phone Number [facility] [address] Department [employer] [place], [place] [phone] * eGFR (04/23/2025 12:25 PM CDT) [facility] eGFR >90 >=60 mL/min/1. 73 m2 [...] ORDERABLES Final Resul t Performing Organization Address City/[facility]/ZIP Co de Phone Number [facility] [address] [place] [address] * (ABNORMAL) Beta-hydroxybutyrate (04/23/2025 12:25 PM CDT) Beta-Hydroxybut yrate 2.2(H) <=0.5 mmol/L Blood 04/23/2025 12:2 5 PM CDT 04/23/2025 12:45 PM CDT Monse Rajan MD LAB BLOOD ORDERABLES Final Resul t [facility] [address] [place], [place] [phone] * (ABNORMAL) C-peptide (04/23/2025 12:25 PM CDT) C-peptide 0.72(L) 1.10 - 4.40 ng/mL Comment:Testing performed by : [facility], [address] [facility], [place] [address] Blood 04/23/2025 12:2 5 PM CDT 04/23/2025 4:55 PM CDT Monse Rajan MD LAB BLOOD ORDERABLES Final Resul t Performing Organization Address City/[facility]/ZIP Co de Phone Number [facility] [address] Department [place] [address] * Magnesium (04/23/2025 12:25 PM CDT) Pathologist [facility] Magnesium 2.2 1.4 - 2.5 mg/dL Blood 04/23/2025 12:2 5 PM CDT 04/23/2025 12:45 PM CDT Johnny Blanco DO LAB BLOOD ORDERABLES Fi nal Result Performing Organization Address [facility] Co de Phone Number [facility] [address] Department [place] [address] * (ABNORMAL) Basic metabolic panel (04/23/2025 12:25 PM CDT) [facility] Sodium 135 135 - 145 mmol/L Potassium, pl 4.0 3.3 - 4.9 mmol/L [facility] Chloride 98 97 - 110 mmol/L [facility] CO2 20(L) 22 - 32 mmol/L [facility] Anion gap 17(H) 2 - 15 mmol/L [facility] BUN 15 6 - 25 mg/dL [facility] Creatinine 0.70 0.60 - 1.10 mg/dL [facility] Glucose 69(L) 70 - 199 mg/dL [facility] Comment: Interpretive Data Fasting glucose >/= 126 [...] 2022. Calcium 9.3 8.5 - 10.3 mg/dL [facility] Blood 04/23/2025 12:2 5 PM CDT 04/23/2025 12:45 PM CDT Monse Rajan MD LAB BLOOD ORDERABLES Final Resul t Performing Organization Address [facility] Co de Phone Number [facility] [address] Department of [employer] [place], [place] [phone] * POCT glucose (04/23/2025 11:12 AM CDT) [...] D EVICE Final Result Performing Organization Address [facility] Co de Phone Number [facility] [address] Department of [employer] [place] [address] * (ABNORMAL) POCT glucose (04/23/2025 10:10 AM [...] D EVICE Final Result Performing Organization Address [facility] Co de Phone Number [facility] [address] [facility] [employer] [place], [place] [phone] * (ABNORMAL) POCT glucose (04/23/2025 9:00 AM [...] D EVICE Final Result Performing Organization Address [facility] Co de Phone Number [facility] [address] [facility] [employer] [place] [address] * (ABNORMAL) POCT glucose (04/23/2025 8:11 AM CDT) Glucose, POC 69(L) 70 - 199 mg/dL Comment: For Glucose values <35 mg/dl when Hematocrit is >60 mg/dl,the test may not accurately detect significant hypoglycemia,and testing in the Laboratory should be considered if clinically indicated. Blood 04/23/2025 8:11 AM CDT 04/23/2025 8:11 AM CDT Johnny Yañezer LAB POCT ORDERABLES - D EVICE Final Result Performing Organization Address City/[facility] Co de Phone Number [facility] [address] [facility] [employer] [place], [place] [phone] * (ABNORMAL) POCT glucose (04/23/2025 7:02 AM CDT) Glucose, POC 67(L) 70 - 199 mg/dL Comment: For Glucose values <35 mg/dl when Hematocrit is >60 mg/dl,the test may not accurately detect significant hypoglycemia,and testing in the Laboratory should be considered if clinically indicated. Glucose comment 1 RN/MD Notified [facility] Blood 04/23/2025 7:02 AM CDT 04/23/2025 7:02 AM CDT Johnny Blanco DO LAB POCT ORDERABLES - D EVICE Final Result Performing Organization Address [facility] de Phone Number [facility] [address] [facility] [employer] [place] [address] * POCT glucose (04/23/2025 6:02 AM CDT) [...] D EVICE Final Result Performing Organization Address [facility] de Phone Number [facility] [address] [facility] [employer] [place] [address] * (ABNORMAL) POCT glucose (04/23/2025 5:02 AM [...] D EVICE Final Result Performing Organization Address [facility] Co de Phone Number [facility] [address] Department [employer] [place], [place] [phone] * (ABNORMAL) POCT glucose (04/23/2025 4:02 AM CDT) Glucose, POC 62(L) 70 - 199 mg/dL Comment: For Glucose values <35 mg/dl when Hematocrit is >60 mg/dl,the test may not accurately detect significant hypoglycemia,and testing in the Laboratory should be considered if clinically indicated. Glucose comment 1 RN/ Notified [facility] Blood 04/23/2025 4:02 AM CDT 04/23/2025 4:02 AM CDT Johnny Blanco DO LAB POCT ORDERABLES - D EVICE Final Result Performing Organization Address [facility] de Phone Number [facility] [address] [facility] [employer] [place] [address] * (ABNORMAL) POCT glucose (04/23/2025 2:57 AM CDT) Glucose, POC 60(L) 70 - 199 mg/dL Comment: For Glucose values <35 mg/dl when Hematocrit is >60 mg/dl,the test may not accurately detect significant hypoglycemia,and testing in the Laboratory should be considered if clinically indicated. Glucose comment 1 RN/ Notified [facility] Blood 04/23/2025 2:57 AM CDT 04/23/2025 2:57 AM CDT Johnny Blanco DO LAB POCT ORDERABLES - D EVICE Final Result Performing Organization Address [facility] Co de Phone Number [facility] [address] [facility] [employer] [place], [place] [phone] * (ABNORMAL) POCT glucose (04/23/2025 2:02 AM CDT) Glucose, POC 69(L) 70 - 199 mg/dL Comment: For Glucose values <35 mg/dl when Hematocrit is >60 mg/dl,the test may not accurately detect significant hypoglycemia,and testing in the Laboratory should be considered if clinically indicated. Glucose comment 1 RN/MD Notified [facility] Blood 04/23/2025 2:02 AM CDT 04/23/2025 2:02 AM CDT Johnny Blanco DO LAB POCT ORDERABLES - D EVICE Final Result Performing Organization Address [facility] Co de Phone Number [facility] [address] [facility] [employer] [place] [address] * (ABNORMAL) POCT glucose (04/23/2025 1:11 AM [...] D EVICE Final Result Performing Organization Address [facility] de Phone Number [facility] [address] [facility] [employer] [place] [address] * POCT glucose (04/22/2025 11:59 PM CDT) [...] D EVICE Final Result Performing Organization Address [facility] Co de Phone Number [facility] [address] Department of [employer] [place] [address] * (ABNORMAL) POCT glucose (04/22/2025 11:00 PM [...] D EVICE Final Result Performing Organization Address [facility] Co de Phone Number [facility] [address] Department [employer] [place] [address] * POCT glucose (04/22/2025 10:01 PM CDT) [...] D EVICE Final Result Performing Organization Address [facility] Co de Phone Number [facility] [address] Department [employer] [place] [address] * (ABNORMAL) POCT glucose (04/22/2025 9:04 PM CDT) Glucose, POC 67(L) 70 - 199 mg/dL Comment: For Glucose values <35 mg/dl when Hematocrit is >60 mg/dl,the test may not accurately detect significant hypoglycemia,and testing in the Laboratory should be considered if clinically indicated. Blood 04/22/2025 9:04 PM CDT 04/22/2025 9:04 PM CDT Johnny Blnaco DO LAB POCT ORDERABLES - D EVICE Final Result Performing Organization Address [facility]/ZIP Co de Phone Number [facility] [address] [facility] [employer] [place] [address] * POCT glucose (04/22/2025 8:03 PM CDT) Glucose, POC 71 70 - 199 mg/dL Comment: For Glucose values <35 mg/dl when Hematocrit is >60 mg/dl,the test may not accurately detect significant hypoglycemia,and testing in the Laboratory should be considered if clinically indicated. Glucose comment 1 RN/MD Notified [facility] Blood 04/22/2025 8:03 PM CDT 04/22/2025 8:03 PM CDT Johnny Blanco DO LAB POCT ORDERABLES - D EVICE Final Result Performing Organization Address [facility] Co de Phone Number [facility] [address] [facility] [employer] [place] [address] * POCT glucose (04/22/2025 5:59 PM CDT) [...] D EVICE Final Result Performing Organization Address City/[facility]/ZIP Co de Phone Number [facility] [address] [facility] [employer] [place], [place] [phone] * eGFR (04/22/2025 5:37 PM CDT) eGFR [...] ORDERABLES Final Resul t Performing Organization Address City/[facility] Co de Phone Number [facility] [address] [employer] [place], [place] [phone] * (ABNORMAL) Beta-hydroxybutyrate (04/22/2025 5:37 PM CDT) Beta-Hydroxybut yrate 1.9(H) <=0.5 mmol/L Blood 04/22/2025 5:37 PM CDT 04/22/2025 5:46 PM CDT Monse Rajan MD LAB BLOOD ORDERABLES Final Resul t Performing Organization Address City/[facility] Co de Phone Number [facility] [address] Department of [employer] [place] [address] * Proinsulin (04/22/2025 5:37 PM CDT) Pathologist [facility] Proinsulin 3.7 3.6 - 22 pmol/L [place] [facility] Comment: ADDITIONAL INFORMATION This test was developed and its performance characteristics determined by [facility] in a manner consistent with CLIA requirements. This test has not been cleared or approved by the U.S. Food and Drug Administration. Test Performed by: [facility] [address] [place] [address] Lace Stripper: Kate Wilde Ph.D.; CLIA# [id number] Blood 04/22/2025 5:37 PM CDT 04/22/2025 5:43 PM CDT Monse Rajan MD LAB BLOOD ORDERABLES Final Resul t Performing Organization Address City/[facility]/ZIP Co de Phone Number [facility] [address] [place] [address] [place] [facility] * Insulin, total (04/22/2025 5:37 PM CDT) Pathologist [facility] Insulin 3.6 2.6 - 25.0 mcIUnit/mL Comment:Testing performed by : [facility], [address] [facility], [place]., [address] Blood 04/22/2025 5:37 PM CDT 04/22/2025 7:28 PM CDT Monse Rajan MD LAB BLOOD ORDERABLES Final Resul t [facility] [address] [place] [place] [address] * (ABNORMAL) C-peptide (04/22/2025 5:37 PM CDT) Pathologist [facility] C-peptide 1.02(L) 1.10 - 4.40 ng/mL Comment:Testing performed by : [facility], [address] [place]., [address] Blood 04/22/2025 5:37 PM CDT 04/22/2025 7:28 PM CDT us Monse Rajan MD LAB BLOOD ORDERABLES Final Resul t Performing Organization Address City/[facility]/ZIP Co de Phone Number [facility] [address] [place] [address] * (ABNORMAL) Basic metabolic panel (04/22/2025 5:37 PM CDT) Sodium 135 135 - 145 mmol/L Potassium, pl 4.1 3.3 - 4.9 mmol/L [facility] Chloride 101 97 - 110 mmol/L [facility] CO2 18(L) 22 - 32 mmol/L [facility] Anion gap 16(H) 2 - 15 mmol/L [facility] BUN 18 6 - 25 mg/dL [facility] Creatinine 0.61 0.60 - 1.10 mg/dL [facility] Glucose 68(L) 70 - 199 mg/dL [facility] Comment: Interpretive Data Fasting glucose >/= 126 [...] 2022. Calcium 8.9 8.5 - 10.3 mg/dL [facility] Blood 04/22/2025 5:37 PM CDT 04/22/2025 5:46 PM CDT us Monse Rajan MD LAB BLOOD ORDERABLES Final Resul t Performing Organization Address City/[facility]/ZIP Co de Phone Number [facility] [address] Department of [employer] [place] [address] * POCT glucose (04/22/2025 5:04 PM CDT) [...] D EVICE Final Result Performing Organization Address [facility] de Phone Number [facility] [address] Department of [employer] [place] [address] * (ABNORMAL) POCT glucose (04/22/2025 3:28 PM [...] D EVICE Final Result Performing Organization Address [facility] Co de Phone Number [facility] [address] [facility] [employer] [place] [address] * POCT glucose (04/22/2025 3:09 PM CDT) [...] D EVICE Final Result Performing Organization Address [facility] Co de Phone Number [facility] [address] [facility] [employer] [place], [place] [phone] * (ABNORMAL) POCT glucose (04/22/2025 12:49 PM [...] D EVICE Final Result Performing Organization Address [facility] de Phone Number [facility] [address] [facility] [employer] [place], [place] [id number] * POCT glucose (04/22/2025 10:53 AM CDT) [...] D EVICE Final Result Performing Organization Address [facility] Co de Phone Number [facility] [address] [facility] [employer] [place], [place] [phone] * (ABNORMAL) POCT glucose (04/22/2025 8:54 AM [...] D EVICE Final Result Performing Organization Address [facility] Co de Phone Number [facility] [address] [facility] [employer] [place], [place] [phone] * (ABNORMAL) POCT glucose (04/22/2025 6:08 AM [...] D EVICE Final Result Performing Organization Address [facility] de Phone Number [facility] [address] [facility] [employer] [place] [address] * (ABNORMAL) Prolactin (04/22/2025 6:06 AM CDT) Prolactin 27.800(H) 4.790 - 23.300 ng/mL Blood 04/22/2025 6:06 AM CDT 04/22/2025 6:26 AM CDT Johnny Blanco DO LAB BLOOD ORDERABLES Fi nal Result Performing Organization Address [facility]/ZIP Co de Phone Number [facility] [address] [place] [address] * POCT glucose (04/22/2025 4:02 AM CDT) [...] D EVICE Final Result Performing Organization Address [facility]/ZIP Co de Phone Number [facility] [address] Department [place] [address] * POCT glucose (04/22/2025 2:09 AM CDT) Glucose, POC 72 70 - 199 mg/dL Comment: For Glucose values <35 mg/dl when Hematocrit is >60 mg/dl,the test may not accurately detect significant hypoglycemia,and testing in the Laboratory should be considered if clinically indicated. Blood 04/22/2025 2:09 AM CDT 04/22/2025 2:09 AM CDT Johnny Blanco DO LAB POCT ORDERABLES - D EVICE Final Result [facility] [address] [place] [address] * POCT glucose (04/22/2025 12:06 AM CDT) [...] D EVICE Final Result Performing Organization Address [facility] Co de Phone Number [facility] [address] Department of [employer] [place], [place] [phone] * (ABNORMAL) POCT glucose (04/21/2025 10:09 PM [...] D EVICE Final Result Performing Organization Address [facility] de Phone Number [facility] [address] [facility] [employer] [place], [place] [phone] * POCT glucose (04/21/2025 8:09 PM CDT) [...] D EVICE Final Result Performing Organization Address [facility] Co de Phone Number [facility] [address] Department of [employer] [place], [place] [phone] * POCT glucose (04/21/2025 6:06 PM CDT) [...] D EVICE Final Result Performing Organization Address [facility] de Phone Number [facility] [address] Department of [employer] [place] [address] * POCT glucose (04/21/2025 4:07 PM CDT) [facility] Glucose, POC 82 70 - 199 mg/dL Comment: For Glucose values <35 mg/dl when Hematocrit is >60 mg/dl,the test may not accurately detect significant hypoglycemia,and testing in the Laboratory should be considered if clinically indicated. Blood 04/21/2025 4:07 PM CDT 04/21/2025 4:07 PM CDT Johnny Blanco LAB POCT ORDERABLES - D EVICE Final Result Performing Organization Address [facility] de Phone Number [facility] [address] [place] [address] * BLOOD MISC TO VERNON (04/21/2025 3:36 PM CDT) [facility] See Footnote [place] [facility] Comment: Test Result Flag Unit RefValue Insulin Antibodies <5.0 uU/mL This test is also known as insulin autoantibody or IAA. This test was developed and its performance characteristics determined by [employer]. It has not been cleared or approved by the Food and Drug Administration. Reference Range: <5.0 Negative > or = 5.0 Positive Test Performed by: [facility] [address] [place] [address] Blood 04/21/2025 3:36 PM CDT 04/21/2025 3:51 PM CDT Johnny Blanco DO LAB BLOOD ORDERABLES nal Result [facility] [address] Department [place] [address] [facility] * Hypoglycemic agent screen (04/21/2025 3:36 PM CDT) Chlorpropamide Negative [facility] Comment: REFERENCE VALUE Negative; Ukcyxk=995 ng/mL Glimepiride Negative [facility] Comment: REFERENCE VALUE Negative; Cutoff=20 ng/mL Glipizide Negative [facility] Comment: REFERENCE VALUE Negative; Cutoff=5 ng/mL Glyburide Negative [facility] Comment: REFERENCE VALUE Negative; Cutoff=5 ng/mL Nateglinide Negative [facility] Comment: REFERENCE VALUE Negative; Cutoff=5 ng/mL Pioglitazone Negative [facility] Comment: REFERENCE VALUE Negative; Cutoff=20 ng/mL Repaglinide Negative [facility] Comment: REFERENCE VALUE Negative; Cutoff=5 ng/mL Rosiglitazone Negative [facility] Comment: REFERENCE VALUE Negative; Cutoff=20 ng/mL Tolazamide Negative [facility] Comment: REFERENCE VALUE Negative; Cutoff=50 ng/mL Tolbutamide Negative [facility] Comment: REFERENCE VALUE Negative; Cutoff=20 ng/mL ADDITIONAL INFORMATION This test was developed and its performance characteristics determined by [facility] in a manner consistent with CLIA requirements. This test has not been cleared or approved by the U.S. Food and Drug Administration. Test Performed by: [facility] [employer] [facility] [address] [place] [address] [employer]: Kate Wilde Ph.D.; CLIA# [id number] Blood 04/21/2025 3:36 PM CDT 04/21/2025 3:51 PM CDT Johnny Blanco LAB BLOOD ORDERABLES Fi nal Result [facility] [address] [facility] [employer] [place] [address] [place] [facility] * Prolactin (04/21/2025 3:36 PM CDT) Prolactin 9.510 4.790 - 23.300 ng/mL Blood 04/21/2025 3:36 PM CDT 04/21/2025 3:53 PM CDT Johnny Blanco LAB BLOOD ORDERABLES Fi nal Result Performing Organization Address [facility] Co de Phone Number [facility] [address] [facility] [employer] [place] [address] * Insulin-like growth factor (IGF-1) (04/21/2025 3:36 PM CDT) Insulin-like growth factor 1 (IGF-1) 229 60 - 280 ng/mL Comment: Interpretive Data Janusz Stage Male Female I 80-250 80-320 II 100-450 120-450 III 250-500 250-550 IV 225-600 225-600 V 225-500 180-500 Assay calibrated to WHO and instituted at [facility] 10/2017. References: 1. [employer] IGF-1 Package Insert 2017-04, V 1.0. 2. [place] [employer] IGFMS entry ([email or web address]) accessed 11-07-2017. 3. Kimberley M, Mary Jane N, Tramaine RT et al. J Clin Endocrinol Metab 2014;99:8365-1736. Current interpretive data was last revised on 2017. Testing performed by: [facility], [facility], [place]., [address] Blood 04/21/2025 3:36 PM CDT 04/22/2025 8:33 PM CDT Johnny Blanco DO LAB BLOOD ORDERABLES Fi nal Result Performing Organization Address [facility] Co de Phone Number [facility] [address] [facility] [employer] [place] [address] * POCT glucose (04/21/2025 2:28 PM CDT) [...] D EVICE Final Result Performing Organization Address [facility] de Phone Number [facility] [address] [employer] [place] [address] * POCT glucose (04/21/2025 11:56 AM CDT) [...] D EVICE Final Result Performing Organization Address [facility] Co de Phone Number [facility] [address] [facility] [employer] [place], [place] [phone] * POCT glucose (04/21/2025 9:41 AM CDT) [...] D EVICE Final Result Performing Organization Address [facility] Co de Phone Number [facility] [address] [facility] [employer] [place], [place] [phone] * POCT glucose (04/21/2025 7:58 AM CDT) [...] D EVICE Final Result Performing Organization Address [facility] de Phone Number [facility] [address] [facility] [employer] [place] [address] * Beta-hydroxybutyrate (04/21/2025 7:11 AM CDT) Beta-Hydroxybut yrate 0.5 <=0.5 mmol/L Blood 04/21/2025 7:11 AM CDT 04/21/2025 7:49 AM CDT Narrative [facility] - 04/21/2025 8:17 AM CDT To be drawn only POC BG DROP <54 Monse Rajan MD LAB BLOOD ORDERABLES Final Resul t Performing Organization Address [facility] Co de Phone Number [facility] [address] Department [employer] [place], [place] [phone] * Proinsulin (04/21/2025 7:11 AM CDT) Proinsulin 4.3 3.6 - 22 pmol/L [facility] ref [facility] Comment: ADDITIONAL INFORMATION This test was developed and its performance characteristics determined by [facility] in a manner consistent with CLIA requirements. This test has not been cleared or approved by the U.S. Food and Drug Administration. Test Performed by: [facility] [address] [place] [address] [employer]: Kate Wilde Ph.D.; CLIA# [id number] Blood 04/21/2025 7:11 AM CDT 04/21/2025 7:49 AM CDT Narrative [facility] - 04/24/2025 3:21 PM CDT To be drawn only POC BG DROP <54 Monse Rajan MD LAB BLOOD ORDERABLES Final Resul t [facility] [address] [employer] [place], [place] [phone] [place] [facility] * Insulin, total (04/21/2025 7:11 AM CDT) Insulin 4.4 2.6 - 25.0 mcIUnit/mL Comment:Testing performed by : [facility], [address] [place]., [address] Blood 04/21/2025 7:11 AM CDT 04/23/2025 11:22 AM CDT Narrative [facility] - 04/23/2025 3:43 PM CDT To be drawn only POC BG DROP <54 Monse Rajan MD LAB BLOOD ORDERABLES Final Resul t [facility] [address] Department [place] [address] * C-peptide (04/21/2025 7:11 AM CDT) C-peptide 1.55 1.10 - 4.40 ng/mL Comment:Testing performed by : [facility], [address] [facility], [place]., [address] Blood 04/21/2025 7:11 AM CDT 04/21/2025 11:10 AM CDT Narrative [facility] - 04/22/2025 3:42 PM CDT To be drawn only POC BG DROP <54 Monse Rajan MD LAB BLOOD ORDERABLES Final Resul t [facility] [address] Department [place] [address] * POCT glucose (04/21/2025 6:18 AM CDT) Glucose, POC 89 70 - 199 mg/dL Comment: For Glucose values <35 mg/dl when Hematocrit is >60 mg/dl,the test may not accurately detect significant hypoglycemia,and testing in the Laboratory should be considered if clinically indicated. Blood 04/21/2025 6:18 AM CDT 04/21/2025 6:18 AM CDT Johnny Blanco DO LAB POCT ORDERABLES - D DENSIE Final Result [facility] [address] [place] [address] * POCT glucose (04/21/2025 4:28 AM CDT) Glucose, POC 88 70 - 199 mg/dL Comment: For Glucose values <35 mg/dl when Hematocrit is >60 mg/dl,the test may not accurately detect significant hypoglycemia,and testing in the Laboratory should be considered if clinically indicated. Blood 04/21/2025 4:28 AM CDT 04/21/2025 4:28 AM CDT us [facility] Randall Wesley MD LAB POCT ORDERABL ES - DEVICE Final Result Performing Organization Address [facility] de Phone Number [facility] [address] [facility] [employer] [place] [address] * POCT glucose (04/21/2025 2:09 AM CDT) Glucose, POC 84 70 - 199 mg/dL Comment: For Glucose values <35 mg/dl when Hematocrit is >60 mg/dl,the test may not accurately detect significant hypoglycemia,and testing in the Laboratory should be considered if clinically indicated. Blood 04/21/2025 2:09 AM CDT 04/21/2025 2:09 AM CDT us [facility] Randall Wesley MD LAB POCT ORDERABL ES - DEVICE Final Result Performing Organization Address [facility] de Phone Number [facility] [address] [facility] [employer] [place] [address] * POCT glucose (04/21/2025 12:18 AM CDT) Glucose, POC 100 70 - 199 mg/dL Comment: For Glucose values <35 mg/dl when Hematocrit is >60 mg/dl,the test may not accurately detect significant hypoglycemia,and testing in the Laboratory should be considered if clinically indicated. Blood 04/21/2025 12:1 8 AM CDT 04/21/2025 12:18 AM CDT us [facility] Randall Wesley MD LAB POCT ORDERABL ES - DEVICE Final Result Performing Organization Address [facility] Co de Phone Number [facility] [address] [facility] [employer] [place] [address] * POCT glucose (04/20/2025 10:23 PM CDT) [...] - DEVICE Final Result Performing Organization Address [facility] Co de Phone Number [facility] [address] [facility] [employer] [place], [place] [phone] * POCT glucose (04/20/2025 8:16 PM CDT) Glucose, POC 86 70 - 199 mg/dL Comment: For Glucose values <35 mg/dl when Hematocrit is >60 mg/dl,the test may not accurately detect significant hypoglycemia,and testing in the Laboratory should be considered if clinically indicated. Blood 04/20/2025 8:16 PM CDT 04/20/2025 8:16 PM CDT us [facility] Randall Wesley MD LAB POCT ORDERABL ES - DEVICE Final Result Performing Organization Address [facility] Co de Phone Number [facility] [address] [facility] [employer] [place] [address] * POCT glucose (04/20/2025 6:05 PM CDT) [...] - DEVICE Final Result Performing Organization Address [facility] Co de Phone Number [facility] [address] [facility] [employer] [place], [place] [phone] * POCT glucose (04/20/2025 3:57 PM CDT) [...] - DEVICE Final Result Performing Organization Address [facility] de Phone Number [facility] [address] [facility] [employer] [place], [place] [phone] * POCT glucose (04/20/2025 11:36 AM CDT) Glucose, POC 80 70 - 199 mg/dL Comment: For Glucose values <35 mg/dl when Hematocrit is >60 mg/dl,the test may not accurately detect significant hypoglycemia,and testing in the Laboratory should be considered if clinically indicated. Blood 04/20/2025 11:3 6 AM CDT 04/20/2025 11:36 AM CDT us [facility] Randall Wesley MD LAB POCT ORDERABL ES - DEVICE Final Result Performing Organization Address [facility] Co de Phone Number [facility] [address] [facility] [employer] [place], [place] [phone] * hCG, blood, quantitative - Add on lab test (04/20/2025 9:37 AM CDT) Acceptable Yes Blood 04/20/2025 9:37 AM CDT 04/20/2025 9:37 AM CDT Narrative [facility] - 04/20/2025 9:37 AM CDT Name of Test->hCG, blood, quantitative us [facility] Randall Wesley MD LAB BLOOD ORDERAB LES Final Result Performing Organization Address [facility] Co de Phone Number [facility] [address] Department [employer] [place] [address] * Phosphorus - Add on lab test (04/20/2025 9:37 AM CDT) Acceptable Yes Blood 04/20/2025 9:37 AM CDT 04/20/2025 9:37 AM CDT Narrative [facility] 04/20/2025 9:37 AM CDT Name of Test->Phosphorus us [facility] Randall Wesley MD LAB BLOOD ORDERAB LES Final Result Performing Organization Address [facility] de Phone Number [facility] [address] [facility] [employer] [place], [place] [phone] * POCT glucose (04/20/2025 8:36 AM CDT) Glucose, POC 95 70 - 199 mg/dL Comment: For Glucose values <35 mg/dl when Hematocrit is >60 mg/dl,the test may not accurately detect significant hypoglycemia,and testing in the Laboratory should be considered if clinically indicated. Blood 04/20/2025 8:36 AM CDT 04/20/2025 8:36 AM CDT us [facility] Randall Wesley MD LAB POCT ORDERABL ES - DEVICE Final Result Performing Organization Address [facility] Co de Phone Number [facility] [address] Department [employer] [place], [place] [phone] * POCT glucose (04/20/2025 4:26 AM CDT) [...] - DEVICE Final Result Performing Organization Address [facility] Co de Phone Number [facility] [address] [facility] [employer] [place] [address] * Lactate (04/20/2025 12:55 AM CDT) Lactate 1.0 0.7 - 2.0 mmol/L Blood 04/20/2025 12:5 5 AM CDT 04/20/2025 12:59 AM CDT José Miguel Duff MD LAB BLOOD ORDERABLES Final Re sult Performing Organization Address [facility] Co de Phone Number [facility] [address] [facility] [employer] [place], [place] [phone] * Beta-hydroxybutyrate (04/20/2025 12:55 AM CDT) Beta-Hydroxybut yrate 0.1 <=0.5 mmol/L Blood 04/20/2025 12:5 5 AM CDT 04/20/2025 1:02 AM CDT José Miguel Duff MD LAB BLOOD ORDERABLES Final Re sult Performing Organization Address [facility] Co de Phone Number [facility] [address] Department [employer] [place], [place] [phone] * hCG, blood, quantitative (04/20/2025 12:55 AM CDT) [facility] hCG, quant <0.6 0.0 - 5.0 [...] AM CDT 04/20/2025 1:02 AM CDT us [facility] Randall Wesley MD LAB BLOOD ORDERAB LES Final Result [facility] [address] [place] [address] * Phosphorus (04/20/2025 12:55 AM CDT) [facility] Phosphorus, pl 3.8 2.3 - 4.5 mg/dL Blood 04/20/2025 12:5 5 AM CDT 04/20/2025 1:02 AM CDT us [facility] Randall Wesley MD LAB BLOOD ORDERAB LES Final Result [facility] [address] [place] [address] * POCT glucose (04/20/2025 12:06 AM CDT) [facility] Glucose, POC 107 70 - 199 mg/dL Comment: For Glucose values <35 mg/dl when Hematocrit is >60 mg/dl,the test may not accurately detect significant hypoglycemia,and testing in the Laboratory should be considered if clinically indicated. Blood 04/20/2025 12:0 6 AM CDT 04/20/2025 12:06 AM CDT us [facility] Randall eWsley MD LAB POCT ORDERABL ES - DEVICE Final Result [facility] [address] Department [employer] [place], [place] [phone] * POCT glucose (04/19/2025 7:36 PM CDT) [...] LOUISE CE Final Result Performing Organization Address [facility] Co de Phone Number [facility] [address] [place] [address] * C-peptide (04/19/2025 5:19 PM CDT) C-peptide 4.25 1.10 - 4.40 ng/mL Comment:Testing performed by : [facility], [address] [place]., [address] Blood 04/19/2025 5:19 PM CDT 04/19/2025 7:40 PM CDT us Omar Hearn MD LAB BLOOD ORDERABLES Final Res ult [facility] [address] Department [employer] [place] [address] * POCT glucose (04/19/2025 5:17 PM CDT) [...] LOUISE CE Final Result Performing Organization Address [facility] Co de Phone Number [facility] [address] Department [employer] [place] [address] * POCT glucose (04/19/2025 3:54 PM CDT) [facility] Glucose, POC 87 70 - 199 mg/dL Comment: For Glucose values <35 mg/dl when Hematocrit is >60 mg/dl,the test may not accurately detect significant hypoglycemia,and testing in the Laboratory should be considered if clinically indicated. Blood 04/19/2025 3:54 PM CDT 04/19/2025 3:54 PM CDT Domingo Samson MD LAB POCT ORDERABLES - LOUISE CE Final Result Performing Organization Address [facility] Co de Phone Number [facility] [address] Department of [employer] [place] [address] * Respiratory pathogen panel Nasopharyngeal (04/19/2025 3:50 PM CDT) [facility] Influenza A RNA Not Detected Not Detected [facility] Influenza B RNA Not Detected Not Detected [facility] RSV RNA Not Detected Not Detected [facility] COVID-19 RNA Not Detected Not Detected [facility] Coronavirus 229E RNA Not Detected Not Detected [facility] Coronavirus HKU1 RNA Not Detected Not Detected [facility] Coronavirus NL63 RNA Not Detected Not Detected [facility] Coronavirus OC43 RNA Not Detected Not Detected [facility] Adenovirus DNA Not Detected Not Detected [facility] Metapneumovirus RNA Not Detected Not Detected [facility] Rhinovirus/Enterov irus RNA Not Detected Not Detected [facility] Parainfluenza 1 RNA Not Detected Not Detected [facility] Parainfluenza 2 RNA Not Detected Not Detected [facility] Parainfluenza 3 RNA Not Detected Not Detected [facility] Parainfluenza 4 RNA Not Detected Not Detected [facility] B. pertussis DNA Not Detected Not Detected [facility] B. parapertussis DNA Not Detected Not Detected [facility] C. pneumoniae DNA Not Detected Not Detected [facility] M. pneumoniae DNA Not Detected Not Detected [facility] Comment: Interpretive Data The Giiv FilmArray Respiratory Panel (RP2.1) assay is a [...] assay has FDA clearance for testing of SFDC DEVELOPER swabs. The performance characteristics of this assay have been determined by [facility]. Current interpretive data was last revised on 2021. Nasopharyngeal 04/19/2025 3: 50 PM CDT 04/19/2025 3:59 PM CDT Narrative [facility] - 04/19/2025 4:51 PM CDT Is the Patient experiencing symptoms consistent with COVID?->No Surveillance testing for transplant patient?->No us Omar Hearn MD LAB MICROBIOLOGY - GENERAL ORD ERABLES Final Result [facility] [address] [place] [address] MBC * POCT glucose (04/19/2025 2:31 PM [...] DEVICE F inal Result Performing Organization Address City/[facility]/ZIP Co de Phone Number [facility] [address] [place] [address] * POCT glucose (04/19/2025 1:38 PM CDT) [...] DEVICE F inal Result Performing Organization Address [facility] Co de Phone Number [facility] [address] Mc[address] [facility] [employer] [place] [address] * POCT glucose (04/19/2025 1:02 PM CDT) Glucose, POC 85 70 - 199 mg/dL Comment: For Glucose values <35 mg/dl when Hematocrit is >60 mg/dl,the test may not accurately detect significant hypoglycemia,and testing in the Laboratory should be considered if clinically indicated. Blood 04/19/2025 1:02 PM CDT 04/19/2025 1:02 PM CDT [facility] Unknown LAB POCT ORDERABLES - DEVICE F inal Result Performing Organization Address [facility] de Phone Number [facility] [address] Department [employer] [place] [address] * ECG 12 lead (04/19/2025 12:59 PM CDT) 04/19/2025 12:5 9 PM CDT Narrative [facility] - 04/19/2025 1:47 PM CDT Vent Rate: 79 bpm RR Interval: 755 msec KS Interval: 140 msec QRS Duration: 92 msec QT Interval: 344 msec QTC Interval: 379 msec P-R-T Warner: 67 - 72 - 51 degrees IMPRESSION: SINUS RHYTHM POSSIBLE LEFT ATRIAL ENLARGEMENT BORDERLINE ECG Electronically Signed By: Bo Jansen [facility] Card Domingo Samson MD ECG ORDERABLES Final Resu lt Performing Organization Address [facility] Co de Phone Number [facility] [employer] [facility] * eGFR (04/19/2025 12:55 PM CDT) Pathologist [facility] eGFR >90 >=60 mL/min/1. 73 m2 Comment: [...] BLOOD ORDERABLES Final Result Performing Organization Address City/[facility]/ZIP Co de Phone Number [facility] [address] [employer] [place], [place] [id number] * Thyroid Function Kings (04/19/2025 12:55 PM CDT) Pathologist [facility] TSH 1.02 0.30 - 4.20 mcIUnit/mL Blood 04/19/2025 12:5 5 PM CDT 04/19/2025 1:22 PM CDT Domingo Samson MD LAB BLOOD ORDERABLES Final Result [facility] [address] [place], [place] [id number] * CBC without differential (04/19/2025 12:55 PM CDT) WBC 8.05 3.80 - 9.90 K/cumm Hgb 14.2 11.9 - 15.5 g/dL [facility] Hct 41.6 35.6 - 45.5 % [facility] Plt 326 150 - 400 K/cumm [facility] MPV 10.1 9.1 - 12.3 fL [facility] RBC 4.60 3.90 - 5.20 M/cumm [facility] MCV 90.4 81.3 - 96.4 fL [facility] MCH 30.9 27.1 - 33.3 pg [facility] MCHC 34.1 32.3 - 35.7 g/dL [facility] RDW CV 12.2 11.1 - 14.9 % [facility] RDW SD 39.7 35.7 - 48.1 fL [facility] NRBC abs 0.00 0.00 - 0.01 K/cumm [facility] Blood 04/19/2025 12:5 5 PM CDT 04/19/2025 1:22 PM CDT Domingo Samson MD LAB BLOOD ORDERABLES Final Result Performing Organization Address [facility] de Phone Number [facility] [address] [employer] [place], [place] [id number] * Hemoglobin A1c (04/19/2025 12:55 PM CDT) [facility] Hgb A1C 5.2 4.0 - 5.6 % Estimated Average Glucose 103 mg/dL [facility] Comment: The ADA recommends reporting an estimated Average Glucose (eAG) with all Hemoglobin A1c results using the equation derived from a study of 507 normal and diabetic adults. Minority populations were underrepresented and children were not included. (Diabetes Care 31:9730-0937, 2008). The eAG is not equivalent to a fasting glucose. Blood 04/19/2025 12:5 5 PM CDT 04/19/2025 1:22 PM CDT Domingo Samson MD LAB BLOOD ORDERABLES Final Result Performing Organization Address City/[facility]/ZIP Co de Phone Number [facility] [address] [facility] [address] [place], [place] [address] * Cortisol (04/19/2025 12:55 PM CDT) Pathologist [facility] Cortisol 10.5 4.8 - 19.5 mcg/dl Blood 04/19/2025 12:5 5 PM CDT 04/19/2025 1:22 PM CDT Domingo Samson MD LAB BLOOD ORDERABLES Final Result [facility] [address] [place] [address] * (ABNORMAL) Comprehensive metabolic panel (04/19/2025 12:55 PM CDT) [facility] Sodium 139 135 - 145 mmol/L Potassium, pl 4.4 3.3 - 4.9 mmol/L [facility] Comment:Hemolyzed; potassium value may be falsely elevated by as much as 0.6 - 1.0 mmol/L. Suggest redraw and reanalysis Chloride 104 97 - 110 mmol/L [facility] CO2 20(L) 22 - 32 mmol/L [facility] Anion gap 15 2 - 15 mmol/L [facility] BUN 18 6 - 25 mg/dL [facility] Creatinine 0.53(L) 0.60 - 1.10 mg/dL [facility] Glucose 86 70 - 199 mg/dL [facility] Comment: Interpretive Data Fasting glucose >/= 126 [...] 2022. Calcium 9.0 8.5 - 10.3 mg/dL [facility] Bilirubin, total 0.2 0.1 - 1.2 mg/dL [facility] Protein, pl 7.0 6.5 - 8.5 g/dL [facility] Albumin 4.2 3.5 - 5.0 g/dL [facility] Alk phos 19(L) 40 - 130 Units/L [facility] ALT 18 7 - 45 Units/L [facility] Comment:Moderately Hemolyzed Specimen AST 31 10 - 45 Units/L [facility] Comment:Moderately Hemolyzed Specimen Blood 04/19/2025 12:5 5 PM CDT 04/19/2025 1:22 PM CDT Domingo Samson MD LAB BLOOD ORDERABLES Final Result Performing Organization Address [facility] Co de Phone Number [facility] [address] [place] [address] * POCT glucose (04/19/2025 12:54 PM CDT) [facility] Glucose, POC 87 70 - 199 mg/dL Comment: For Glucose values <35 mg/dl when Hematocrit is >60 mg/dl,the test may not accurately detect significant hypoglycemia,and testing in the Laboratory should be considered if clinically indicated. Blood 04/19/2025 12:5 4 PM CDT 04/19/2025 12:54 PM CDT Result [facility] Unknown LAB POCT ORDERABLES - DEVICE F inal Result Performing Organization Address [facility] Co de Phone Number [facility] [address] [place] [address] from Last 3 Months Insurance [facility] Advance Directives For more information, please contact: [phone] * Full Code (Latest Code Status on File) Date Activated Date Inactivated Comments 04/19/2025 10:05 PM 04/24/2025 7:10 PM Care Teams Civil Service Worker Relationship Specialty Start Date End Date Yolande Rodriguez NP [address] [place] [address] PCP - General Nurse Practitioner 04/09/25
--- OUTSIDE RECORDS SUMMARY | 2025-05-25 17:27 | XMS_ITS | Patient Health Record ---
Author Organization [facility] Address [address] [facility] [address] [place] [address] Care Team Providers Care Centrifugal Supervisor Name Role Phone Bhavik Su Unavailable [phone] Eric Fernández Unavailable [phone] Allergies No Known Allergies Results Component Value [...] 300 ng/ml DRUG MONITOR,AMPHETAMINE, QN , URINE ([id number]) Reviewed date:06/11/2024 02:33:46 PM Interpretation: Performing Lab:[facility], [facility] [address], [address] [id number] Tarun Alves Notes/Report: FASTING: UNKNOWN Amphetamine NEGATIVE <250 ng/mL Methamphetamine NEGATIVE <250 ng/mL Amphetamines Comments See LDT Notes DRUG MONITOR, MARIJUANA META B, QN, URINE ([id number]) Reviewed date:06/11/2024 02:33:33 PM Interpretation: Performing Lab:[facility] [address], [address] ColeWkkoPP[address] Tarun Alves Notes/Report: FASTING: UNKNOWN Marijuana Metabolite 96 <5 ng/mL H Marijuana Comments See Jessica browning Notes, LDT Notes DRUG MONITOR, MDMA/MDA, QN, URINE ([id number]) Reviewed date:06/11/2024 02:33:25 PM Interpretation: Performing Lab:[facility] [address], Magneceutical HealthUyjmZQ[address] Tarun Alves, Director - [id number] [place] [address] Notes/Report: FASTING: UNKNOWN MDA NEGATIVE <200 ng/mL [...] analytical performance characteristics have been determined by [facility]. It has not been cleared or approved by the FDA. This assay has been validated pursuant to the CLIA regulations and is used for clinical purposes. Healthcare Providers needing Interpretation assistance, please contact us at [phone] ( ) M-F, 8am to 10pm EST DRUG MONITOR, COCAINE METAB, QN, URINE ([id number]) Reviewed date:06/11/2024 02:33:40 PM Interpretation: Performing Lab:[facility] [address], [address] [id number] Tarun Alves Notes/Report: FASTING: UNKNOWN Benzoylecgonine 156 [...] decision-maker Yes Do you have Power of Cyber Security for Health or [facility]? No Safety issues: Are there any firearms [...] Status Risk Notes Problem Generalized anxiety disorder (50893542) Generalized anxiety disorder (F41.1) Active confirmed Problem Attention deficit hyperactivity disorder, predominantly inattentive type (disorder) (84108733) Attention and concentration deficit (R41.840) Active confirmed Problem Severe recurrent major depression without psychotic features (54513992) Severe episode of recurrent major depressive disorder, without psychotic features (F33.2) Active confirmed Problem Nondependent cannabis abuse (046376736) Marijuana use (F12.90) Active confirmed Problem Feeling suicidal (283647788) Passive suicidal ideations (R45.851) Active confirmed Vital Signs Heart Rate 72 /min 11/11/2024 Height-cm 165.1 cm 11/11/2024 Blood pressure diastolic 75 mm Hg 11/11/2024 Weight-kg 62.6 kg 11/11/2024 Height 65 in 11/11/2024 Blood pressure systolic 113 mm Hg 11/11/2024 Weight 138 lbs 11/11/2024 BMI 22.96 kg/m2 11/11/2024 Encounters Encounter Location Date Provider Diagnosis [facility], [address] [address] 06/03/2024 Eric Clubb Severe episode of recurrent major depressive disorder, without psychotic features F33.2 ; Passive suicidal ideations R45.851 and Marijuana use F12.90 [facility] [address] [facility] [address] [place] [address] 07/29/2024 Bhavik Su Severe episode of recurrent major depressive disorder, without psychotic features F33.2 and Generalized anxiety disorder F41.1 [facility] [address] [address] 08/26/2024 Bhavik Su Severe episode of recurrent major depressive disorder, without psychotic features F33.2 and Generalized anxiety disorder F41.1 [facility] [address] [facility] [address] [place] [address] 11/11/2024 Bhavik Su Encounter for screen ing for cardiovascular disorders Z13.6 ; Severe episode of recurrent major depressive disorder, without psychotic features F33.2 ; Generalized anxiety disorder F41.1 and Attention and concentration deficit R41.840 [facility] [address] [facility] [address] [place] [address] 12/12/2024 Bhavik Valdovinosoza [facility] [address] [facility] [address] [place] [address] 12/23/2024 Bhavik Su [facility] [address] [place] [address] 07/30/2024 Bhavikjany Su [facility] [address] [place] [address] 08/21/2024 Bhavikjany Su [facility] [address] [place] [address] 08/22/2024 Bhavikjany Ledesmaa [facility] [address] [place] [address] 09/22/2024 Bhavikjany Su [facility] [address] [place] [address] 11/07/2024 Bhavikjany Ledesmaa Assessments Encounter Date Diagnosis (ICD Code) Assessment Notes Treatment Notes Treatment Clinical Notes Section Notes 07/29/2024 Generalized anxiety disorder (ICD-10 - F41.1) 54 minutes spent with pt discussing pt symptoms, discussing medication options, her concerns about medications and treatment plan 07/29/2024 Severe episode of recurrent major depressive disorder, without psychotic features (ICD-10 - F33.2) 54 minutes spent with pt discussing pt symptoms, discussing medication options, her concerns about medications and treatment plan 08/26/2024 Severe episode of recurrent major depressive disorder, without psychotic features (ICD-10 - F33.2) 54 minutes spent with pt discussing pt symptoms, discussing medication options, her concerns about medications and treatment plan 11/11/2024 Encounter for screening for cardiovascular disorders (ICD-10 - Z13.6) 06/03/2024 Severe episode of recurrent major depressive [...] address anxiety symptoms. Continue counseling sessions in [place] as feasible with work schedule. Note difficulty attending sessions regularly due to work constraints. 3. Post-Traumatic Stress Disorder - Plan: Continue counseling sessions in [place] as feasible with work schedule. 4. Attention Deficit Hyperactivity Disorder - Plan: Continue lisdexamfetamine as prescribed by primary care provider. 5. Insomnia - Plan: Monitor sleep quality after starting Prozac (fluoxetine). 6. Suicidal ideation - Plan: Provide the patient with the crisis prevention hotline number (768) for worsening suicidal thoughts. Encourage the patient [...] use. advised to d/c use of substances. 06/03/2024 Passive suicidal ideations (ICD-10 - R45.851) [...] address anxiety symptoms. Continue counseling sessions in [place] as feasible with work schedule. Note difficulty attending sessions regularly due to work constraints. 3. Post-Traumatic Stress Disorder - Plan: Continue counseling sessions in [place] as feasible with work schedule. 4. Attention [...] use. advised to d/c use of substances. 06/03/2024 Marijuana use (ICD-10 - F12.90) 1. [...] address anxiety symptoms. Continue counseling sessions in [place] as feasible with work schedule. Note difficulty attending sessions regularly due to work constraints. 3. Post-Traumatic Stress Disorder - Plan: Continue counseling sessions in [place] as feasible with work schedule. 4. Attention [...] use. advised to d/c use of substances. 11/11/2024 Severe episode of recurrent major depressive disorder, without psychotic features (ICD-10 - F33.2) 11/11/2024 Generalized anxiety disorder (ICD-10 - F41.1) 08/26/2024 Generalized anxiety disorder (ICD-10 - F41.1) [...] address anxiety symptoms. Continue counseling sessions in [place] as feasible with work schedule. Note difficulty attending sessions regularly due to work constraints. 3. Post-Traumatic Stress Disorder - Plan: Continue counseling sessions in [place] as feasible with work schedule. 4. Attention Deficit Hyperactivity Disorder - Plan: Continue lisdexamfetamine as prescribed by primary care provider. 5. Insomnia - Plan: Monitor sleep quality after starting Prozac (fluoxetine). 6. Suicidal ideation - Plan: Provide the patient with the crisis prevention hotline number (208) for worsening suicidal thoughts. Encourage the patient [...] ADHD medication prescribed by Molly Coleman at [facility] in [place]. Plan: - Encourage the patient to continue [...] vitamin deficiencies, and hormone changes, with the executive sous chef. 5. Medication management: - Patient is currently [...] Date Coverage End Date Milona [address] [place] [address] [id number] THUAN ALFARO Self - patient is the [...]
--- OUTSIDE RECORDS SUMMARY | 2025-05-25 17:27 | XMS_ITS | Clinical Summary ---
Author Organization [facility] [employer] Address [address] [facility] [place] [address] Care Team Providers Care Sheet Metal Duct Installer Helper Name Role Phone Emma Sueholly Lowe APRN-REFRACTORY FURNACE DESIGNER Primary Care Provider Source Comments [facility] [employer],non-owned Affiliates and Associated Physician Practices is amultiple site organization consisting of ambulatory clinics and hospital sitesin [place], [place], [place] and [place]. This disclosure is being madepursuant to the Care Everywhere program and may not contain all information available regarding this patient. Last updated 18.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 Not on file Not on file Last Filed Vital Signs Vital Sign Reading Time Taken Comments Blood Pressure 121/82 10/27/2024 3:57 PM CDT Pulse 93 10/27/2024 3:57 PM CDT Temperature 36.2 C (97.1 F) 06/19/2024 10:07 AM HEALTH UNIT CLERK Respiratory Rate 18 06/19/2024 10:07 AM HEALTH UNIT CLERK Oxygen Saturation 98% 10/27/2024 3:57 PM CDT Inhaled Oxygen Concentration - - Weight 63 kg (139 lb) 10/27/2024 3:57 PM CDT Height 165.1 cm (5' 5) 10/27/2024 3:57 PM CDT Body Mass Index 23.13 10/27/2024 3:57 PM CDT Plan of Treatment Upcoming Encounters Date Type Department Care Team (Late st Contact Info) Description 10/26/2025 4:00 PM CDT Office Visit [facility] - Neurology [address] [place] [address], Formerly [facility] [place] [phone] Toney Wolfe APRN-REFRACTORY FURNACE DESIGNER [address] [place] [address] Health Maintenance Due Date Last Done Comments Cervical Cancer Screening 2013 PAP SMEAR 2013 HPV VACCINE (1 - 3-dose SCDM series) 2019 PAP with HPV 2022 DEPRESSION SCREENING 07/02/2024 01/28/2024, 04/17/20 23 COVID-19 VACCINE ( - season) 2025 03/17/2021, 02/17/2021 INFLUENZA VACCINE (#1) [...] ve Non-react peter 04/10/2024 1:44 PM CDT [facility] Comment:No Laboratory eviden ce of HIV infection. Blood BLOOD SPECIMEN / Unknown Lab Venipuncture / Unknown 04/10/2024 10:40 AM CDT 04/10/2024 12:14 PM CDT Sunshine Sue APRN-REFRACTORY FURNACE DESIGNER LAB - CHEMISTRY ORDERAB LES Final Result Performing Organization Address City/[facility]/ZIP Co de Phone Number [address] [address], [facility] [phone] * HEPATITIS C ANTIBODY (04/10/2024 10:40 AM CDT) Hepatitis C Antibody Non-react peter Non-reac tive 04/10/2024 1:44 PM CDT [facility] Comment:Hepatitis C Antibody screen indicates no [...] CDT 04/10/2024 12:14 PM CDT Sunshine Sue APRN-REFRACTORY FURNACE DESIGNER LAB - CHEMISTRY ORDERAB LES Final Result Performing Organization Address City/[facility]/ZIP Co de Phone Number [address] [address], [facility] [phone] from Last 3 Months or Most Recently Relevant to Health Maintenance Care Teams Sheet Metal Duct Installer Helper Relationship Specialty Start Date End Date Sunshine Sue APRN-CNP [address] OF [facility] [place] [address] PCP - General Nurse Practitioner Family 04/17/23
--- OUTSIDE RECORDS SUMMARY | 2025-05-25 17:27 | XMS_ITS | Clinical Summary ---
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
== END 2025-05-25 14:42 | disposition home or self-care (01) ==
LOC: ANHCARD 14:44
PROVIDERS: PCP Nurse Practitioner Family; Visit Provider Nurse Practitioner Family
DX: R93.1 Abnormal findings on diagnostic imaging of heart and coronary circulation (principal); R42 Dizziness and giddiness; R53.82 Chronic fatigue, unspecified; R00.0 Tachycardia, unspecified
CPT/HCPCS: 93306

== ENCOUNTER 2025-06-11 07:18 | Outpatient (CLI) | payer OTHER, SELFPAY ==
--- NOTE | 2025-07-08 11:33 | WPDHOLTEREM ---
Holter/Event Monitor Holter/Event Monitor Date of procedure: 06/11/25 Holter/Event Procedure: Event Monitor Indications: Tachycardia Conclusion: 1. 14 days event monitor on 06/11/25. 2. Underlying rhythm is sinus rhythm. HR range 53-166 bpm; average HR 88 bpm. HR at 166 bpm was on 06/21/25 at 1:54 pm. 3. There are rare premature supraventricular complexes, rare supraventricular couplets, and rare supraventricular triplets. No supraventricular tachycardia. 4. There are rare premature ventricular complexes. No ventricular tachycardia. 5. No significant pauses greater than 3 seconds. 6. No symptoms available for correlation.
== END 2025-06-11 07:19 | disposition home or self-care (01) ==
PROVIDERS: PCP Nurse Practitioner Family; Visit Provider Nurse Practitioner Family
DX: R42 Dizziness and giddiness (principal); R00.0 Tachycardia, unspecified
CPT/HCPCS: 93246

== ENCOUNTER 2025-06-30 09:05 | Outpatient (CLI) | payer OTHER, SELFPAY ==
--- OUTSIDE RECORDS SUMMARY | 2024-07-04 09:00 | XMS_ITS ---
Author Organization [facility] As [employer] [facility] Address [facility] [address] [facility] [address] [place] [address] Care Team Providers Care Recycling Manager Name Role Phone Bhavik Su Unavailable [phone] REASON FOR VISIT [facility] Social History Sex Assigned At : Social History Observation Description Sex Assigned At Female Encounters Encounter Location Date Provider Diagnosis [facility] [address] [address] 07/04/2024 Bhavik Su Plan Of Treatment No Information Progress Notes * [place] MCKEONSTANOB:1990 (35 yo F)Acc No.[id number]:07/04/2024 Patient: THUAN ROONEY Provider: LENCHO CARRILLO :1990 A ge:34 Y S ex:Female Date:07/04/2024 Phone: Address:[address] [place], [place] [address] Subjective: * Chief Complaints: * B [facility] * Electronic signature of LENCHO Sims on 06/30/2025 at 09:16 AM FOURTH MATE Sign off status: Pending * Provider: LENCHO CARRILLO Date: 0 07/04/2024 Generated for Jonah lombardo/Trini/eTransmitting on: 09:16 AM FOURTH MATE
--- OUTSIDE RECORDS SUMMARY | 2024-12-23 05:45 | XMS_ITS ---
Author Organization [facility] As [employer] [facility] Address [facility] [address] [address] Care Team Providers Care Meat Curer Name Role Phone Bhavik Su Unavailable [phone] REASON FOR VISIT Follow Up Social History Sex Assigned At : Social History Observation Description Sex Assigned At Female Encounters Encounter Location Date Provider Diagnosis [place] [address] [address] [address] 12/23/2024 Bhavik Su Plan Of Treatment No Information Progress Notes * [place] MCKEONSTANOB:1990 (35 yo F)Acc No.[id number]:12/23/2024 Patient: THUAN ROONEY Provider: LENCHO CARRILLO :1990 A ge:34 Y S ex:Female Date:12/23/2024 Phone: Address:[address] [place], [place] [phone] Subjective: * Chief Complaints: * F ollow Up Billing Information: * Procedure Codes: * Electronic signature of LENCHO Sims on 06/30/2025 at 09:16 AM SOLAR ELECTRIC/PHOTOVOLTAIC INSTALLER Sign off status: Pending * Provider: LENCHO CARRILLO Date: 0 12/23/2024 Generated for Jonah lombardo/Trini/eTransmitting on: 1 09:16 AM SOLAR ELECTRIC/PHOTOVOLTAIC INSTALLER
--- OUTSIDE RECORDS SUMMARY | 2025-02-02 10:15 | XMS_ITS ---
Author Organization [facility] As [employer] [facility] Address [facility] [address] [address] Care Team Providers Care Group Therapy Counselor Name Role Phone Bhavik Su Unavailable [phone] REASON FOR VISIT follow up Social History Sex Assigned At : Social History Observation Description Sex Assigned At Female Encounters Encounter Location Date Provider Diagnosis [place] [address] [address] [facility] [address] [address] 02/02/2025 Bhavik Su Plan Of Treatment No Information Progress Notes * [place] MCKEONSTANOB:1990 (35 yo F)Acc No.[id number]:02/02/2025 Patient: THUAN ROONEY Provider: LENCHO CARRILLO :1990 A ge:34 Y S ex:Female Date:02/02/2025 Phone: Address:[address] [place], [place] [address] Subjective: * Chief Complaints: * F ollow up Billing Information: * Procedure Codes: * Electronic signature of LENCHO Sims on 06/30/2025 at 09:16 AM CENTER DIRECTOR LEAD TEACHER Sign off status: Pending * Provider: LENCHO CARRILLO Date: 0 02/02/2025 Generated for Jonah lombardo/Trini/eTransmitting on: 1 09:16 AM CENTER DIRECTOR LEAD TEACHER
--- OUTSIDE RECORDS SUMMARY | 2025-06-30 09:16 | XMS_ITS | Patient Health Record ---
Author Organization [facility] Make YES! Happen Address [facility] [facility] [address] [place] [address] Care Team Providers Care Landscape Specialist Name Role Phone Bhavik Su Unavailable [phone] Allergies No Known Allergies Reason For Referral No Information Medications Medication [...] decision-maker Yes Do you have Power of Racket Stringer for Health or [facility]? No Safety issues: Are there any [...] Status Risk Notes Problem Generalized anxiety disorder (37613516) Generalized anxiety disorder (F41.1) Active confirmed Problem Attention deficit hyperactivity disorder, predominantly inattentive type (disorder) (65104537) Attention and concentration deficit (R41.840) Active confirmed Problem Severe recurrent major depression without psychotic features (01076614) Severe episode of recurrent major depressive disorder, without psychotic features (F33.2) Active confirmed Problem Nondependent cannabis abuse (727749575) Marijuana use (F12.90) Active confirmed Problem Feeling suicidal (597862230) Passive suicidal ideations (R45.851) Active confirmed Vital Signs Heart Rate 72 /min 11/11/2024 Height-cm 165.1 cm 11/11/2024 Blood pressure diastolic 75 mm Hg 11/11/2024 Weight-kg 62.6 kg 11/11/2024 Height 65 in 11/11/2024 Blood pressure systolic 113 mm Hg 11/11/2024 Weight 138 lbs 11/11/2024 BMI 22.96 kg/m2 11/11/2024 Encounters Encounter Location Date Provider Diagnosis [facility] [address] [place] [address] 07/29/2024 Bhavik Su Severe episode of recurrent major depressive disorder, without psychotic features F33.2 and Generalized anxiety disorder F41.1 [facility] [address] [place] [address] 08/26/2024 Bhavik Su Severe episode of recurrent major depressive disorder, without psychotic features F33.2 and Generalized anxiety disorder F41.1 [facility], [facility] [address] [place] [address] 11/11/2024 Bhavik Su Encounter for screen ing for cardiovascular disorders Z13.6 ; Severe episode of recurrent major depressive disorder, without psychotic features F33.2 ; Generalized anxiety disorder F41.1 and Attention and concentration deficit R41.840 [facility] [address] [place] [address] 12/12/2024 Bhavik Su [facility], [facility] [address] [place] [address] 12/23/2024 Bhavik Su [facility], [facility] [address] [place] [address] 07/[facility] [address] [place] [address] 08/21/2024 [facility] [address] [place] [address] 08/22/2024 Bhavik Su [facility], [facility] [address] [place] [address] 09/22/2024 [facility] [address] [place] [address] 11/07/2024 Bhavik Su Assessments Encounter Date Diagnosis [...] Attention and concentration deficit (ICD-10 - R41.840) 07/29/2024 Other HX PTSD 1. Major Depressive [...] ADHD medication prescribed by Molly Coleman at [facility] in [place]. Plan: - Encourage the patient to continue [...] vitamin deficiencies, and hormone changes, with the double needle stitcher. 5. Medication management: - Patient is currently [...] disabling or disfiguring. Comment reaction include, nausea/vomiting, dizziness/vertigo, visual disturbances, somnolence, ataxia, pruritus/rash, pharyngitis, headache, [...] any of the serious side effect develops. Sheryl Alfaro presents with worsening depression, irritability, and [...] Date Coverage End Date [employer] [address] [place] [phone] [id number] SHERYL ALFARO Self - patient is the insured [...] at 15 years old, inpatient [facility]
--- OUTSIDE RECORDS SUMMARY | 2025-06-30 09:16 | XMS_ITS | Clinical Summary ---
Author Organization [facility] [employer] Address [address] [place] [place] [address] Care Team Providers Care Last Cleaner Name Role Phone VikramEmma amayaholly Lowe APRN-CUSTOM LEATHER PRODUCTS MAKER Primary Care Provider Source Comments [facility] [employer],non-owned Affiliates and Associated Physician Practices is amultiple site organization consisting of ambulatory clinics and hospital sitesin [place], [place], [place] and [place]. This disclosure is being madepursuant to the Care Everywhere program and may not contain all information available regarding this patient. 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 Not on file Not on file Last Filed Vital Signs Vital Sign Reading Time Taken Comments Blood Pressure 121/82 10/27/2024 3:57 PM CDT Pulse 93 10/27/2024 3:57 PM CDT Temperature 36.2 C (97.1 F) 06/19/2024 10:07 AM SENIOR CYBER INTELLIGENCE ANALYST Respiratory Rate 18 06/19/2024 10:07 AM SENIOR CYBER INTELLIGENCE ANALYST Oxygen Saturation 98% 10/27/2024 3:57 PM CDT [...] Office Visit [facility] - Neurology [address] [place] [address], [facility] [place] [id number] Toney Wolfe, [employer] MAKER [address] [place] [address] Health Maintenance Due Date Last [...] ve Non-react peter 04/10/2024 1:44 PM CDT [facility] Comment:No Laboratory eviden ce of HIV infection. Blood BLOOD SPECIMEN / Unknown Lab Venipuncture / Unknown 04/10/2024 10:40 AM CDT 04/10/2024 12:14 PM CDT Sunshine Sue PHYSICAL DIRECTOR-CUSTOM LEATHER PRODU[employer] MAKER LAB - CHEMISTRY ORDERAB LES Final Result Performing Organization Address City/[facility] Co de Phone Number [address] [address], [facility] [phone] * HEPATITIS C ANTIBODY (04/10/2024 10:40 AM CDT) Hepatitis C Antibody Non-react peter Non-reac tive 04/10/2024 1:44 PM CDT [facility] Comment:Hepatitis C Antibody screen indicates no [...] ORDERAB LES Final Result Performing Organization Address City/[facility] Co de Phone Number [address] [address], [facility] [phone] from Last 3 Months or Most Recently Relevant to Health Maintenance Care Teams Last Cleaner Relationship Specialty Start Date End Date Sunshine Sue APRN-CNP [address] OF [facility] [place] [address] PCP - General Nurse Practitioner Family 04/17/23
--- OUTSIDE RECORDS SUMMARY | 2025-06-30 09:16 | XMS_ITS | Clinical Summary ---
Author Organization [facility] Address [address] [place] [address] Care Team Providers Care Double End Chucking Machine Operator Name Role Phone New Referring, Provider Primary [...] on file Legal Sex Female 5:51 PM X RAY EQUIPMENT TESTER Gender Identity Not on file Sexual Orientation [...] to complete this topic Insurance Care Teams Double End Chucking Machine Operator Relationship Specialty Start Date End Date New Referring, Provider PCP - General UNKNOWN PHYSICIAN SPECIALTY 04/30/19
--- OUTSIDE RECORDS SUMMARY | 2025-06-30 09:16 | XMS_ITS | Clinical Summary ---
Author Organization [facility] Address [address] [place] [address] Care Team Providers Care Website Designer Name Role Phone Yolande Rodriguez NP Primary Care Provider [phone] Allergies No known active allergies Medications albuterol [...] Description 05/22/2025 Orders Only [facility] [address], [place] [address] Marcelina Yi MD Low serum alkaline phosphatase (Primary Dx) 04/28/2025 7:55 AM CDT Lab [address] [address] Low serum alkaline phosphatase 04/27/2025 1:30 PM CDT Office Visit [facility] [address] [address] Marcelina Yi MD Hypoglycemia, unspecified (Primary Dx); Low serum alkaline phosphatase; Fatigue, unspecified type 04/19/2025 12:42 PM CDT - 04/24/2025 3:05 PM CDT Hospital Encounter [facility] [address] [place] [address] Domingo Samson MD Anacius, Elisabeth, MD Avagyan, Juletta, MD Shahnawaz, MD Bella Patel, Johnny Rios, DO Hypoglycemia (Primary Dx); Other fatigue Discharge Disposition: Discharge to home or self care from Last 3 Months Surgical History Surgery Date Site/Laterality Comments WISDOM TOOTH EXTRACTION Oral Surgery Tooth Extraction [place] Tooth - (Added by ) Medical History [...] often do you attend chur ch or yarsanism services? More than 4 times per year 04/21/2025 Do you belong to any clubs o r organizations such as druze groups, unions, fraternal or athletic groups, or [...] any time in the past 12 m [facility], were you homeless or living in a penitentiary (including now)? No 04/21/2025 [facility] Utilities Answer Date Recorded In the past 12 months has th e [employer], gas, oil, or water company threatened to [...] on file Legal Sex Female 1:36 AM [employer] Gender Identity Not on file Sexual Orientation [...] 4 :07 PM CDT BLOOD MISC TO TURNEY Routine 04/21/2025 3: 36 PM CDT INSULIN-LIKE [...] phosphatase, bone specific (04/28/2025 7:59 AM CDT) [facility] Alk phos, bone 3.2 mcg/L [place] ref Lab Comment: REFERENCE VALUE <=14 (Premenopausal) <=22 (Postmenopausal) ADDITIONAL INFORMATION Liver-derived alkaline phosphatase (ALP) increases apparent measured bone alkaline phosphatase (BAP) in this assay by 2.5 mcg/L to 5.8 mcg/L for every 100 U/L of liver ALP. Accordingly, serum specimens with significant elevations of liver ALP activity may yield artificially elevated results in the BAP assay. Test Performed by: [place] [address] Supervisor Shed Workers: Kate Wilde Ph.D.; CLIA# [id number] Blood 04/28/2025 7:59 AM CDT 04/28/2025 10:32 AM CDT Marcelina Yi MD LAB BLOOD ORDERABLES Final Resul t [facility] [address] [facility] Department [place] [address] [facility] Lab * (ABNORMAL) Alkaline phosphatase (04/28/2025 7:59 AM CDT) [facility] Alk phos 18(L) 40 - 130 Units/L Blood 04/28/2025 7:59 AM CDT 04/28/2025 10:33 AM CDT Mracelina Yi MD LAB BLOOD ORDERABLES Final Resul t Performing Organization Address City/[facility]/ZIP Co de Phone Number [facility] [address] [address] * PTH (04/28/2025 7:59 AM CDT) [facility] PTH 28 15 - 65 pg/mL Blood 04/28/2025 7:59 AM CDT 04/28/2025 10:32 AM CDT Marcelina Yi MD LAB BLOOD ORDERABLES Final Resul t Performing Organization Address [facility] de Phone Number [facility] [address] [address] * POCT glucose (04/27/2025 1:44 PM CDT) [facility] Glucose Blood, POC 104 Normal Fasting 70 - 100, Random <200 mg/dL Blood 04/27/2025 1:44 PM CDT Marcelina Yi MD POINT OF CARE TEST ORDERABLES Fi nal Result * POCT glucose (04/24/2025 12:07 PM CDT) [facility] Glucose, POC 93 70 - 199 mg/dL Comment: For Glucose values <35 mg/dl when Hematocrit is >60 mg/dl,the test may not accurately detect significant hypoglycemia,and testing in the Laboratory should be considered if clinically indicated. Blood 04/24/2025 12:0 7 PM CDT 04/24/2025 12:07 PM CDT Johnny Blanco DO LAB POCT ORDERABLES - D DENISE Final Result Performing Organization Address City/[facility]/ZIP Co de Phone Number [facility] [address] [place] [address] * (ABNORMAL) POCT glucose (04/24/2025 8:52 AM CDT) [facility] Glucose, POC 201(H) 70 - 199 mg/dL Comment: For Glucose values <35 mg/dl when Hematocrit is >60 mg/dl,the test may not accurately detect significant hypoglycemia,and testing in the Laboratory should be considered if clinically indicated. Blood 04/24/2025 8:52 AM CDT 04/24/2025 8:52 AM CDT Johnny Blanco DO LAB POCT ORDERABLES - D EVICE Final Result Performing Organization Address [facility] de Phone Number [facility] [address] [facility] [place], [place] [phone] * POCT glucose (04/24/2025 7:57 AM CDT) [...] D EVICE Final Result Performing Organization Address [facility] de Phone Number [facility] [address] [facility] [place] [address] * POCT glucose (04/24/2025 5:54 AM CDT) [...] D EVICE Final Result Performing Organization Address City/[facility]/ZIP Co de Phone Number [facility] [address] [place] [address] * POCT glucose (04/23/2025 9:38 PM CDT) [...] D EVICE Final Result Performing Organization Address [facility] Co de Phone Number [facility] [address] [place] [address] * POCT glucose (04/23/2025 5:09 PM CDT) [...] D EVICE Final Result Performing Organization Address [facility] Co de Phone Number [facility] [address] [place] [address] * POCT glucose (04/23/2025 3:52 PM CDT) [...] D EVICE Final Result Performing Organization Address [facility] Co de Phone Number [facility] [address] [place] [address] * Magnesium - Add on lab test (04/23/2025 2:58 PM CDT) [facility] Acceptable Yes Blood 04/23/2025 2:58 PM CDT 04/23/2025 2:58 PM CDT Narrative [facility] - 04/23/2025 2:58 PM CDT Name of Test->Magnesium Monse Rajan MD LAB BLOOD ORDERABLES Final Resul t Performing Organization Address [facility] Co de Phone Number [facility] [address] Department [place], [place] [phone] * POCT glucose (04/23/2025 2:01 PM CDT) [facility] Glucose, POC 130 70 - 199 mg/dL Comment: For Glucose values <35 mg/dl when Hematocrit is >60 mg/dl,the test may not accurately detect significant hypoglycemia,and testing in the Laboratory should be considered if clinically indicated. Blood 04/23/2025 2:01 PM CDT 04/23/2025 2:01 PM CDT Johnny Blanco DO LAB POCT ORDERABLES - D EVICE Final Result Performing Organization Address [facility] Co de Phone Number [facility] [address] Department [place], [place] [phone] * eGFR (04/23/2025 12:25 PM CDT) [facility] eGFR >90 >=60 mL/min/1. 73 m2 Comment: [...] ORDERABLES Final Resul t Performing Organization Address City/[facility]/ZIP Co de Phone Number [facility] [address] [place] [address] * (ABNORMAL) Beta-hydroxybutyrate (04/23/2025 12:25 PM CDT) Beta-Hydroxybut yrate 2.2(H) <=0.5 mmol/L Blood 04/23/2025 12:2 5 PM CDT 04/23/2025 12:45 PM CDT Monse Rajan MD LAB BLOOD ORDERABLES Final Resul t [facility] [address] Department [employer] [place], [place] [phone] * (ABNORMAL) C-peptide (04/23/2025 12:25 PM CDT) C-peptide 0.72(L) 1.10 - 4.40 ng/mL Comment:Testing performed by : [facility], [address] [facility], [place] [address] Blood 04/23/2025 12:2 5 PM CDT 04/23/2025 4:55 PM CDT Monse Rajan MD LAB BLOOD ORDERABLES Final Resul t Performing Organization Address City/[facility]/ZIP Co de Phone Number [facility] [address] [place] [address] * Magnesium (04/23/2025 12:25 PM CDT) Pathologist [facility] Magnesium 2.2 1.4 - 2.5 mg/dL Blood 04/23/2025 12:2 5 PM CDT 04/23/2025 12:45 PM CDT Johnny Blanco DO LAB BLOOD ORDERABLES Fi nal Result Performing Organization Address [facility] Co de Phone Number [facility] [address] [place] [address] * (ABNORMAL) Basic metabolic panel (04/23/2025 12:25 PM CDT) [facility] Sodium 135 135 - 145 mmol/L Potassium, pl 4.0 3.3 - 4.9 mmol/L [facility] Chloride 98 97 - 110 mmol/L [facility] CO2 20(L) 22 - 32 mmol/L [facility] Anion gap 17(H) 2 - 15 mmol/L [facility] BUN 15 6 - 25 mg/dL [facility] Creatinine 0.70 0.60 - 1.10 mg/dL [facility] Glucose 69(L) 70 - 199 mg/dL [facility] Comment: Interpretive Data Fasting glucose >/= 126 [...] 2022. Calcium 9.3 8.5 - 10.3 mg/dL [facility] Blood 04/23/2025 12:2 5 PM CDT 04/23/2025 12:45 PM CDT Monse Rajan MD LAB BLOOD ORDERABLES Final Resul t Performing Organization Address [facility] Co de Phone Number [facility] [address] Department of [place], [place] [phone] * POCT glucose (04/23/2025 11:12 AM CDT) [...] D EVICE Final Result Performing Organization Address [facility] Co de Phone Number [facility] [address] [place] [address] * (ABNORMAL) POCT glucose (04/23/2025 10:10 AM [...] D EVICE Final Result Performing Organization Address [facility] Co de Phone Number [facility] [address] [facility] [place], [place] [phone] * (ABNORMAL) POCT glucose (04/23/2025 9:00 AM [...] D EVICE Final Result Performing Organization Address [facility] Co de Phone Number [facility] [address] [facility] [place] [address] * (ABNORMAL) POCT glucose (04/23/2025 8:11 AM [...] D EVICE Final Result Performing Organization Address City/[facility] Co de Phone Number [facility] [address] [facility] [place], [place] [phone] * (ABNORMAL) POCT glucose (04/23/2025 7:02 AM CDT) Glucose, POC 67(L) 70 - 199 mg/dL Comment: For Glucose values <35 mg/dl when Hematocrit is >60 mg/dl,the test may not accurately detect significant hypoglycemia,and testing in the Laboratory should be considered if clinically indicated. Glucose comment 1 RN/MD Notified [facility] Blood 04/23/2025 7:02 AM CDT 04/23/2025 7:02 AM CDT Johnny Blanco DO LAB POCT ORDERABLES - D EVICE Final Result Performing Organization Address [facility] de Phone Number [facility] [address] [facility] [place] [address] * POCT glucose (04/23/2025 6:02 AM CDT) [...] D EVICE Final Result Performing Organization Address [facility] de Phone Number [facility] [address] [facility] [place] [address] * (ABNORMAL) POCT glucose (04/23/2025 5:02 AM [...] D EVICE Final Result Performing Organization Address [facility] Co de Phone Number [facility] [address] Department [employer], [place] [phone] * (ABNORMAL) POCT glucose (04/23/2025 4:02 AM CDT) Glucose, POC 62(L) 70 - 199 mg/dL Comment: For Glucose values <35 mg/dl when Hematocrit is >60 mg/dl,the test may not accurately detect significant hypoglycemia,and testing in the Laboratory should be considered if clinically indicated. Glucose comment 1 RN/ Notified [facility] Blood 04/23/2025 4:02 AM CDT 04/23/2025 4:02 AM CDT Johnny Blanco DO LAB POCT ORDERABLES - D EVICE Final Result Performing Organization Address [facility] de Phone Number [facility] [address] [facility] [place] [address] * (ABNORMAL) POCT glucose (04/23/2025 2:57 AM CDT) Glucose, POC 60(L) 70 - 199 mg/dL Comment: For Glucose values <35 mg/dl when Hematocrit is >60 mg/dl,the test may not accurately detect significant hypoglycemia,and testing in the Laboratory should be considered if clinically indicated. Glucose comment 1 RN/ Notified [facility] Blood 04/23/2025 2:57 AM CDT 04/23/2025 2:57 AM CDT Johnny Blanco DO LAB POCT ORDERABLES - D EVICE Final Result Performing Organization Address [facility] Co de Phone Number [facility] [address] [facility] [place], [place] [id number] * (ABNORMAL) POCT glucose (04/23/2025 2:02 AM CDT) Glucose, POC 69(L) 70 - 199 mg/dL Comment: For Glucose values <35 mg/dl when Hematocrit is >60 mg/dl,the test may not accurately detect significant hypoglycemia,and testing in the Laboratory should be considered if clinically indicated. Glucose comment 1 RN/MD Notified [facility] Blood 04/23/2025 2:02 AM CDT 04/23/2025 2:02 AM CDT Johnny Blanco DO LAB POCT ORDERABLES - D EVICE Final Result Performing Organization Address [facility] Co de Phone Number [facility] [address] [facility] [place] [address] * (ABNORMAL) POCT glucose (04/23/2025 1:11 AM [...] D EVICE Final Result Performing Organization Address [facility] de Phone Number [facility] [address] [facility] [place] [address] * POCT glucose (04/22/2025 11:59 PM CDT) [...] D EVICE Final Result Performing Organization Address [facility] Co de Phone Number [facility] [address] [place] [address] * (ABNORMAL) POCT glucose (04/22/2025 11:00 PM [...] D EVICE Final Result Performing Organization Address [facility] Co de Phone Number [facility] [address] [place] [address] * POCT glucose (04/22/2025 10:01 PM CDT) [...] D EVICE Final Result Performing Organization Address [facility] Co de Phone Number [facility] [address] [place] [address] * (ABNORMAL) POCT glucose (04/22/2025 9:04 PM [...] D EVICE Final Result Performing Organization Address [facility]/ZIP Co de Phone Number [facility] [address] [facility] [place] [address] * POCT glucose (04/22/2025 8:03 PM CDT) Glucose, POC 71 70 - 199 mg/dL Comment: For Glucose values <35 mg/dl when Hematocrit is >60 mg/dl,the test may not accurately detect significant hypoglycemia,and testing in the Laboratory should be considered if clinically indicated. Glucose comment 1 RN/MD Notified [facility] Blood 04/22/2025 8:03 PM CDT 04/22/2025 8:03 PM CDT Johnny Blanco DO LAB POCT ORDERABLES - D EVICE Final Result Performing Organization Address [facility] Co de Phone Number [facility] [address] [facility] [place] [address] * POCT glucose (04/22/2025 5:59 PM CDT) [...] D EVICE Final Result Performing Organization Address City/[facility]/ZIP Co de Phone Number [facility] [address] [facility] [place], [place] [phone] * eGFR (04/22/2025 5:37 PM CDT) eGFR [...] ORDERABLES Final Resul t Performing Organization Address City/[facility] Co de Phone Number [facility] [address] [place], [place] [phone] * (ABNORMAL) Beta-hydroxybutyrate (04/22/2025 5:37 PM CDT) Beta-Hydroxybut yrate 1.9(H) <=0.5 mmol/L Blood 04/22/2025 5:37 PM CDT 04/22/2025 5:46 PM CDT Monse Rajan MD LAB BLOOD ORDERABLES Final Resul t Performing Organization Address City/[facility] Co de Phone Number [facility] [address] [place] [address] * Proinsulin (04/22/2025 5:37 PM CDT) Pathologist [facility] Proinsulin 3.7 3.6 - 22 pmol/L [place] ref Lab Comment: ADDITIONAL INFORMATION This test was developed and its performance characteristics determined by [facility] in a manner consistent with CLIA requirements. This test has not been cleared or approved by the U.S. Food and Drug Administration. Test Performed by: [facility] [address] [place] [address] Supervisor [employer]hed Workers: Kate Wilde Ph.D.; CLIA# [id number] Blood 04/22/2025 5:37 PM CDT 04/22/2025 5:43 PM CDT Monse Rajan MD LAB BLOOD ORDERABLES Final Resul t Performing Organization Address City/[facility]/ZIP Co de Phone Number [facility] [address] [place] [address] [place] ref [facility] * Insulin, total (04/22/2025 5:37 PM CDT) Pathologist [facility] Insulin 3.6 2.6 - 25.0 mcIUnit/mL Comment:Testing performed by : [facility], [address] [facility], [place]., [address] Blood 04/22/2025 5:37 PM CDT 04/22/2025 7:28 PM CDT Monse Rajan MD LAB BLOOD ORDERABLES Final Resul t [facility] [address] [place] [address] * (ABNORMAL) C-peptide (04/22/2025 5:37 PM CDT) Pathologist [facility] C-peptide 1.02(L) 1.10 - 4.40 ng/mL Comment:Testing performed by : [facility], [address] [place]., [address] Blood 04/22/2025 5:37 PM CDT 04/22/2025 7:28 PM CDT us Monse Rajan MD LAB BLOOD ORDERABLES Final Resul t Performing Organization Address City/[facility]/ZIP Co de Phone Number [facility] [address] [place] [address] * (ABNORMAL) Basic metabolic panel (04/22/2025 5:37 PM CDT) Sodium 135 135 - 145 mmol/L Potassium, pl 4.1 3.3 - 4.9 mmol/L [facility] Chloride 101 97 - 110 mmol/L [facility] CO2 18(L) 22 - 32 mmol/L [facility] Anion gap 16(H) 2 - 15 mmol/L [facility] BUN 18 6 - 25 mg/dL [facility] Creatinine 0.61 0.60 - 1.10 mg/dL [facility] Glucose 68(L) 70 - 199 mg/dL [facility] Comment: Interpretive Data Fasting glucose >/= 126 [...] 2022. Calcium 8.9 8.5 - 10.3 mg/dL [facility] Blood 04/22/2025 5:37 PM CDT 04/22/2025 5:46 PM CDT us Monse Rajan MD LAB BLOOD ORDERABLES Final Resul t Performing Organization Address City/[facility]/ZIP Co de Phone Number [facility] [address] [place] [address] * POCT glucose (04/22/2025 5:04 PM CDT) [...] D EVICE Final Result Performing Organization Address [facility] de Phone Number [facility] [address] [place] [address] * (ABNORMAL) POCT glucose (04/22/2025 3:28 PM [...] D EVICE Final Result Performing Organization Address [facility] Co de Phone Number [facility] [address] [facility] [place] [address] * POCT glucose (04/22/2025 3:09 PM CDT) [...] D EVICE Final Result Performing Organization Address [facility] Co de Phone Number [facility] [address] [facility] [place], [place] [phone] * (ABNORMAL) POCT glucose (04/22/2025 12:49 PM [...] D EVICE Final Result Performing Organization Address [facility] de Phone Number [facility] [address] [facility] [place], [place] [phone] * POCT glucose (04/22/2025 10:53 AM CDT) [...] D EVICE Final Result Performing Organization Address [facility] Co de Phone Number [facility] [address] [facility] [place], [place] [phone] * (ABNORMAL) POCT glucose (04/22/2025 8:54 AM [...] D EVICE Final Result Performing Organization Address [facility] Co de Phone Number [facility] [address] [facility] [place], [place] [phone] * (ABNORMAL) POCT glucose (04/22/2025 6:08 AM [...] D EVICE Final Result Performing Organization Address [facility] de Phone Number [facility] [address] [facility] [place] [address] * (ABNORMAL) Prolactin (04/22/2025 6:06 AM CDT) Prolactin 27.800(H) 4.790 - 23.300 ng/mL Blood 04/22/2025 6:06 AM CDT 04/22/2025 6:26 AM CDT Johnny Blanco DO LAB BLOOD ORDERABLES Fi nal Result Performing Organization Address [facility]/ZIP Co de Phone Number [facility] [address] [place] [address] * POCT glucose (04/22/2025 4:02 AM CDT) [...] D EVICE Final Result Performing Organization Address [facility]/ZIP Co de Phone Number [facility] [address] [place] [address] * POCT glucose (04/22/2025 2:09 AM CDT) Glucose, POC 72 70 - 199 mg/dL Comment: For Glucose values <35 mg/dl when Hematocrit is >60 mg/dl,the test may not accurately detect significant hypoglycemia,and testing in the Laboratory should be considered if clinically indicated. Blood 04/22/2025 2:09 AM CDT 04/22/2025 2:09 AM CDT Johnny Blanco DO LAB POCT ORDERABLES - D EVICE Final Result [facility] [address] [place] [address] * POCT glucose (04/22/2025 12:06 AM CDT) [...] D EVICE Final Result Performing Organization Address [facility] Co de Phone Number [facility] [address] Department of [place], [place] [id number] * (ABNORMAL) POCT glucose (04/21/2025 10:09 PM [...] D EVICE Final Result Performing Organization Address [facility] de Phone Number [facility] [address] [address] [facility], [place] [id number] * POCT glucose (04/21/2025 8:09 PM CDT) [...] D EVICE Final Result Performing Organization Address [facility] Co de Phone Number [facility] [address] Department of [employer] [place], [place] [phone] * POCT glucose (04/21/2025 6:06 PM CDT) [...] D EVICE Final Result Performing Organization Address [facility] de Phone Number [facility] [address] [place] [address] * POCT glucose (04/21/2025 4:07 PM CDT) [facility] Glucose, POC 82 70 - 199 mg/dL Comment: For Glucose values <35 mg/dl when Hematocrit is >60 mg/dl,the test may not accurately detect significant hypoglycemia,and testing in the Laboratory should be considered if clinically indicated. Blood 04/21/2025 4:07 PM CDT 04/21/2025 4:07 PM CDT Johnny Blanco LAB POCT ORDERABLES - D EVICE Final Result Performing Organization Address [facility] de Phone Number [facility] [address] [place] [address] * BLOOD MISC TO TURNEY (04/21/2025 3:36 PM CDT) [facility]note [place] [facility] Comment: Test Result Flag Unit RefValue Insulin Antibodies <5.0 uU/mL This test is also known as insulin autoantibody or IAA. This test was developed and its performance characteristics determined by [employer]. It has not been cleared or approved by the Food and Drug Administration. Reference Range: <5.0 Negative > or = 5.0 Positive Test Performed by: [facility] [address] [place] [address] Blood 04/21/2025 3:36 PM CDT 04/21/2025 3:51 PM CDT Johnny Blanco DO LAB BLOOD ORDERABLES nal Result [facility] [address] [place] [address] [facility] ref [facility] * Hypoglycemic agent screen (04/21/2025 3:36 PM CDT) Chlorpropamide Negative [facility] ref [facility] Comment: REFERENCE VALUE Negative; Lfrxjo=090 ng/mL Glimepiride Negative [facility] Comment: REFERENCE VALUE Negative; Cutoff=20 ng/mL Glipizide Negative [facility] Comment: REFERENCE VALUE Negative; Cutoff=5 ng/mL Glyburide Negative [facility] Comment: REFERENCE VALUE Negative; Cutoff=5 ng/mL Nateglinide Negative [facility] Comment: REFERENCE VALUE Negative; Cutoff=5 ng/mL Pioglitazone Negative [facility] Comment: REFERENCE VALUE Negative; Cutoff=20 ng/mL Repaglinide Negative [facility] Comment: REFERENCE VALUE Negative; Cutoff=5 ng/mL Rosiglitazone Negative [facility] Comment: REFERENCE VALUE Negative; Cutoff=20 ng/mL Tolazamide Negative [facility] Comment: REFERENCE VALUE Negative; Cutoff=50 ng/mL Tolbutamide Negative [facility] Comment: REFERENCE VALUE Negative; Cutoff=20 ng/mL ADDITIONAL INFORMATION This test was developed and its performance characteristics determined by [facility] in a manner consistent with CLIA requirements. This test has not been cleared or approved by the U.S. Food and Drug Administration. Test Performed by: [facility] [address] [place] [address] Supervisor [employer]: Kate Wilde Ph.D.; CLIA# [id number] Blood 04/21/2025 3:36 PM CDT 04/21/2025 3:51 PM CDT Johnny Blanco LAB BLOOD ORDERABLES Fi nal Result [facility] [address] [facility] [place] [address] [place] [facility] * Prolactin (04/21/2025 3:36 PM CDT) Prolactin 9.510 4.790 - 23.300 ng/mL Blood 04/21/2025 3:36 PM CDT 04/21/2025 3:53 PM CDT Johnny Blanco LAB BLOOD ORDERABLES Fi nal Result Performing Organization Address [facility] Co de Phone Number [facility] [address] [facility] [place] [address] * Insulin-like growth factor (IGF-1) (04/21/2025 3:36 PM CDT) Insulin-like growth factor 1 (IGF-1) 229 60 - 280 ng/mL Comment: Interpretive Data Janusz Stage Male Female I 80-250 80-320 II 100-450 120-450 III 250-500 250-550 IV 225-600 225-600 V 225-500 180-500 Assay calibrated to WHO and instituted at [facility] 10/2017. References: 1. [employer] IGF-1 Package Insert 2017-04, V 1.0. 2. [place] [employer] IGFMS entry ([email or web address]-[email or web address]/[email or web address]) accessed 11-07-2017. 3. Kimberley M, Mary Jane N, Tramaine RT et al. J Clin Endocrinol Metab 2014;99:7232-2097. Current interpretive data was last revised on 2017. Testing performed by: [facility] [place]., [address] Blood 04/21/2025 3:36 PM CDT 04/22/2025 8:33 PM CDT Johnny Blanco DO LAB BLOOD ORDERABLES Fi nal Result Performing Organization Address [facility] Co de Phone Number [facility] [address] [facility] [place] [address] * POCT glucose (04/21/2025 2:28 PM CDT) [...] D EVICE Final Result Performing Organization Address [facility] de Phone Number [facility] [address] [place] [address] * POCT glucose (04/21/2025 11:56 AM CDT) [...] D EVICE Final Result Performing Organization Address [facility] Co de Phone Number [facility] [address] [facility] [place], [place] [phone] * POCT glucose (04/21/2025 9:41 AM CDT) [...] D EVICE Final Result Performing Organization Address [facility] Co de Phone Number [facility] [address] [facility] [place], [place] [phone] * POCT glucose (04/21/2025 7:58 AM CDT) [...] D EVICE Final Result Performing Organization Address [facility] de Phone Number [facility] [address] [facility] [place] [address] * Beta-hydroxybutyrate (04/21/2025 7:11 AM CDT) Beta-Hydroxybut yrate 0.5 <=0.5 mmol/L Blood 04/21/2025 7:11 AM CDT 04/21/2025 7:49 AM CDT Narrative [facility] - 04/21/2025 8:17 AM CDT To be drawn only POC BG DROP <54 Monse Rajan MD LAB BLOOD ORDERABLES Final Resul t Performing Organization Address [facility] Co de Phone Number [facility] [address] Department [employer], [place] [phone] * Proinsulin (04/21/2025 7:11 AM CDT) Proinsulin 4.3 3.6 - 22 pmol/L [facility] ref Lab Comment: ADDITIONAL INFORMATION This test was developed and its performance characteristics determined by [facility] in a manner consistent with CLIA requirements. This test has not been cleared or approved by the U.S. Food and Drug Administration. Test Performed by: [facility] [address] [place] [address] Supervisor [employer]: Kate Wilde Ph.D.; CLIA# [id number] Blood 04/21/2025 7:11 AM CDT 04/21/2025 7:49 AM CDT Narrative [facility] - 04/24/2025 3:21 PM CDT To be drawn only POC BG DROP <54 Monse Rajan MD LAB BLOOD ORDERABLES Final Resul t [facility] [address] [employer] [place], [place] [phone] [place] [facility] * Insulin, total (04/21/2025 7:11 AM CDT) Insulin 4.4 2.6 - 25.0 mcIUnit/mL Comment:Testing performed by : [facility], [address] [place]., [address] Blood 04/21/2025 7:11 AM CDT 04/23/2025 11:22 AM CDT Narrative [facility] - 04/23/2025 3:43 PM CDT To be drawn only POC BG DROP <54 Monse Rajan MD LAB BLOOD ORDERABLES Final Resul t [facility] [address] [place] [address] * C-peptide (04/21/2025 7:11 AM CDT) C-peptide 1.55 1.10 - 4.40 ng/mL Comment:Testing performed by : [facility], [address] [facility], [place]., [address] Blood 04/21/2025 7:11 AM CDT 04/21/2025 11:10 AM CDT Narrative [facility] - 04/22/2025 3:42 PM CDT To be drawn only POC BG DROP <54 Monse Rajan MD LAB BLOOD ORDERABLES Final Resul t [facility] [address] [place] [address] * POCT glucose (04/21/2025 6:18 AM CDT) Glucose, POC 89 70 - 199 mg/dL Comment: For Glucose values <35 mg/dl when Hematocrit is >60 mg/dl,the test may not accurately detect significant hypoglycemia,and testing in the Laboratory should be considered if clinically indicated. Blood 04/21/2025 6:18 AM CDT 04/21/2025 6:18 AM CDT Johnny Blanco DO LAB POCT ORDERABLES - D DENISE Final Result [facility] [address] [place] [address] * POCT glucose (04/21/2025 4:28 AM CDT) Glucose, POC 88 70 - 199 mg/dL Comment: For Glucose values <35 mg/dl when Hematocrit is >60 mg/dl,the test may not accurately detect significant hypoglycemia,and testing in the Laboratory should be considered if clinically indicated. Blood 04/21/2025 4:28 AM CDT 04/21/2025 4:28 AM CDT us [facility] Randall Wesley MD LAB POCT ORDERABL ES - DEVICE Final Result Performing Organization Address [facility] de Phone Number [facility] [address] [facility] [place] [address] * POCT glucose (04/21/2025 2:09 AM CDT) Glucose, POC 84 70 - 199 mg/dL Comment: For Glucose values <35 mg/dl when Hematocrit is >60 mg/dl,the test may not accurately detect significant hypoglycemia,and testing in the Laboratory should be considered if clinically indicated. Blood 04/21/2025 2:09 AM CDT 04/21/2025 2:09 AM CDT us [facility] Randall Wesley MD LAB POCT ORDERABL ES - DEVICE Final Result Performing Organization Address [facility] de Phone Number [facility] [address] [facility] [place] [address] * POCT glucose (04/21/2025 12:18 AM CDT) Glucose, POC 100 70 - 199 mg/dL Comment: For Glucose values <35 mg/dl when Hematocrit is >60 mg/dl,the test may not accurately detect significant hypoglycemia,and testing in the Laboratory should be considered if clinically indicated. Blood 04/21/2025 12:1 8 AM CDT 04/21/2025 12:18 AM CDT us [facility] Randall Wesley MD LAB POCT ORDERABL ES - DEVICE Final Result Performing Organization Address [facility] Co de Phone Number [facility] [address] [facility] [place] [address] * POCT glucose (04/20/2025 10:23 PM CDT) [...] - DEVICE Final Result Performing Organization Address [facility] Co de Phone Number [facility] [address] [facility] [place], [place] [id number] * POCT glucose (04/20/2025 8:16 PM CDT) Glucose, POC 86 70 - 199 mg/dL Comment: For Glucose values <35 mg/dl when Hematocrit is >60 mg/dl,the test may not accurately detect significant hypoglycemia,and testing in the Laboratory should be considered if clinically indicated. Blood 04/20/2025 8:16 PM CDT 04/20/2025 8:16 PM CDT us [facility] Randall Wesley MD LAB POCT ORDERABL ES - DEVICE Final Result Performing Organization Address [facility] Co de Phone Number [facility] [address] [facility] [place] [address] * POCT glucose (04/20/2025 6:05 PM CDT) Glucose, POC 82 70 - 199 mg/dL Comment: For Glucose values <35 mg/dl when Hematocrit is >60 mg/dl,the test may not accurately detect significant hypoglycemia,and testing in the Laboratory should be considered if clinically indicated. Blood 04/20/2025 6:05 PM CDT 04/20/2025 6:05 PM CDT us Donta aRndall Wesley MD LAB POCT ORDERABL ES - DEVICE Final Result Performing Organization Address [facility] Co de Phone Number [facility] [address] [facility] [place], [place] [phone] * POCT glucose (04/20/2025 3:57 PM CDT) [...] - DEVICE Final Result Performing Organization Address [facility] de Phone Number [facility] [address] [facility], [place] [phone] * POCT glucose (04/20/2025 11:36 AM CDT) Glucose, POC 80 70 - 199 mg/dL Comment: For Glucose values <35 mg/dl when Hematocrit is >60 mg/dl,the test may not accurately detect significant hypoglycemia,and testing in the Laboratory should be considered if clinically indicated. Blood 04/20/2025 11:3 6 AM CDT 04/20/2025 11:36 AM CDT us [facility] Randall Wesley MD LAB POCT ORDERABL ES - DEVICE Final Result Performing Organization Address [facility] Co de Phone Number [facility] [address] [facility] [place], [place] [phone] * hCG, blood, quantitative - Add on lab test (04/20/2025 9:37 AM CDT) Acceptable Yes Blood 04/20/2025 9:37 AM CDT 04/20/2025 9:37 AM CDT Narrative [facility] - 04/20/2025 9:37 AM CDT Name of Test->hCG, blood, quantitative us [facility] Randall Wesley MD LAB BLOOD ORDERAB LES Final Result Performing Organization Address [facility] Co de Phone Number [facility] [address] [place] [address] * Phosphorus - Add on lab test (04/20/2025 9:37 AM CDT) Acceptable Yes Blood 04/20/2025 9:37 AM CDT 04/20/2025 9:37 AM CDT Narrative [facility] 04/20/2025 9:37 AM CDT Name of Test->Phosphorus us [facility] Randall Wesley MD LAB BLOOD ORDERAB LES Final Result Performing Organization Address [facility] de Phone Number [facility] [address] [facility] [place], [place] [phone] * POCT glucose (04/20/2025 8:36 AM CDT) Glucose, POC 95 70 - 199 mg/dL Comment: For Glucose values <35 mg/dl when Hematocrit is >60 mg/dl,the test may not accurately detect significant hypoglycemia,and testing in the Laboratory should be considered if clinically indicated. Blood 04/20/2025 8:36 AM CDT 04/20/2025 8:36 AM CDT us [facility] Randall Wesley MD LAB POCT ORDERABL ES - DEVICE Final Result Performing Organization Address [facility] Co de Phone Number [facility] [address] Department [employer] [place], [place] [phone] * POCT glucose (04/20/2025 4:26 AM CDT) [...] - DEVICE Final Result Performing Organization Address [facility] Co de Phone Number [facility] [address] [facility] [place] [address] * Lactate (04/20/2025 12:55 AM CDT) Lactate 1.0 0.7 - 2.0 mmol/L Blood 04/20/2025 12:5 5 AM CDT 04/20/2025 12:59 AM CDT José Miguel Duff MD LAB BLOOD ORDERABLES Final Re sult Performing Organization Address [facility] Co de Phone Number [facility] [address] [facility] [place], [place] [phone] * Beta-hydroxybutyrate (04/20/2025 12:55 AM CDT) Beta-Hydroxybut yrate 0.1 <=0.5 mmol/L Blood 04/20/2025 12:5 5 AM CDT 04/20/2025 1:02 AM CDT José Miguel Duff MD LAB BLOOD ORDERABLES Final Re sult Performing Organization Address [facility] Co de Phone Number [facility] [address] Department [employer] [place], [place] [phone] * hCG, blood, quantitative (04/20/2025 12:55 AM CDT) [facility] hCG, quant <0.6 0.0 - 5.0 IUnits/L [...] AM CDT 04/20/2025 1:02 AM CDT us [facility] Randall Wesley MD LAB BLOOD ORDERAB LES Final Result [facility] [address] [place] [address] * Phosphorus (04/20/2025 12:55 AM CDT) [facility] Phosphorus, pl 3.8 2.3 - 4.5 mg/dL Blood 04/20/2025 12:5 5 AM CDT 04/20/2025 1:02 AM CDT us [facility] Randall Wesley MD LAB BLOOD ORDERAB LES Final Result [facility] [address] [place] [address] * POCT glucose (04/20/2025 12:06 AM CDT) [facility] Glucose, POC 107 70 - 199 mg/dL Comment: For Glucose values <35 mg/dl when Hematocrit is >60 mg/dl,the test may not accurately detect significant hypoglycemia,and testing in the Laboratory should be considered if clinically indicated. Blood 04/20/2025 12:0 6 AM CDT 04/20/2025 12:06 AM CDT us [facility] Randall Wesley MD LAB POCT ORDERABL ES - DEVICE Final Result [facility] [address] Department [employer] [place], [place] [phone] * POCT glucose (04/19/2025 7:36 PM CDT) [...] LOUISE CE Final Result Performing Organization Address [facility] Co de Phone Number [facility] [address] [place] [address] * C-peptide (04/19/2025 5:19 PM CDT) C-peptide 4.25 1.10 - 4.40 ng/mL Comment:Testing performed by : [facility], [address] [place]., [address] Blood 04/19/2025 5:19 PM CDT 04/19/2025 7:40 PM CDT us Omar Hearn MD LAB BLOOD ORDERABLES Final Res ult [facility] [address] [place] [address] * POCT glucose (04/19/2025 5:17 PM CDT) [...] LOUISE CE Final Result Performing Organization Address [facility] Co de Phone Number [facility] [address] [place] [address] * POCT glucose (04/19/2025 3:54 PM CDT) [facility] Glucose, POC 87 70 - 199 mg/dL Comment: For Glucose values <35 mg/dl when Hematocrit is >60 mg/dl,the test may not accurately detect significant hypoglycemia,and testing in the Laboratory should be considered if clinically indicated. Blood 04/19/2025 3:54 PM CDT 04/19/2025 3:54 PM CDT Domingo Samson MD LAB POCT ORDERABLES - LOIUSE CE Final Result Performing Organization Address [facility] Co de Phone Number [facility] [address] [place] [address] * Respiratory pathogen panel Nasopharyngeal (04/19/2025 3:50 PM CDT) [facility] Influenza A RNA Not Detected Not Detected [facility] Influenza B RNA Not Detected Not Detected [facility] RSV RNA Not Detected Not Detected [facility] COVID-19 RNA Not Detected Not Detected [facility] Coronavirus 229E RNA Not Detected Not Detected [facility] Coronavirus HKU1 RNA Not Detected Not Detected [facility] Coronavirus NL63 RNA Not Detected Not Detected [facility] Coronavirus OC43 RNA Not Detected Not Detected [facility] Adenovirus DNA Not Detected Not Detected [facility] Metapneumovirus RNA Not Detected Not Detected [facility] Rhinovirus/Enterov irus RNA Not Detected Not Detected [facility] Parainfluenza 1 RNA Not Detected Not Detected [facility] Parainfluenza 2 RNA Not Detected Not Detected [facility] Parainfluenza 3 RNA Not Detected Not Detected [facility] Parainfluenza 4 RNA Not Detected Not Detected [facility] B. pertussis DNA Not Detected Not Detected [facility] B. parapertussis DNA Not Detected Not Detected [facility] C. pneumoniae DNA Not Detected Not Detected [facility] M. pneumoniae DNA Not Detected Not Detected [facility] Comment: Interpretive Data The [employer] FilmArray Respiratory Panel (RP2.1) assay is a [...] assay has FDA clearance for testing of RVDA MASTER CERTIFIED RV TECHNICIAN swabs. The performance characteristics of this assay have been determined by [facility]. Current interpretive data was last revised on 2021. Nasopharyngeal 04/19/2025 3: 50 PM CDT 04/19/2025 3:59 PM CDT Narrative [facility] - 04/19/2025 4:51 PM CDT Is the Patient experiencing symptoms consistent with COVID?->No Surveillance testing for transplant patient?->No us Omar Hearn MD LAB MICROBIOLOGY - GENERAL ORD ERABLES Final Result [facility] [address] [place] [address] MBC * POCT glucose (04/19/2025 2:31 PM [...] DEVICE F inal Result Performing Organization Address City/[facility]/ZIP Co de Phone Number [facility] [address] [place] [address] * POCT glucose (04/19/2025 1:38 PM CDT) [...] DEVICE F inal Result Performing Organization Address [facility] Co de Phone Number [facility] [address] [facility] [place] [address] * POCT glucose (04/19/2025 1:02 PM CDT) Glucose, POC 85 70 - 199 mg/dL Comment: For Glucose values <35 mg/dl when Hematocrit is >60 mg/dl,the test may not accurately detect significant hypoglycemia,and testing in the Laboratory should be considered if clinically indicated. Blood 04/19/2025 1:02 PM CDT 04/19/2025 1:02 PM CDT [facility] POCT ORDERABLES - DEVICE F inal Result Performing Organization Address [facility] de Phone Number [facility] [address] [place] [address] * ECG 12 lead (04/19/2025 12:59 PM CDT) 04/19/2025 12:5 9 PM CDT Narrative [facility] - 04/19/2025 1:47 PM CDT Vent Rate: 79 bpm RR Interval: 755 msec GA Interval: 140 msec QRS Duration: 92 msec QT Interval: 344 msec QTC Interval: 379 msec P-R-T [place]: 67 - 72 - 51 degrees IMPRESSION: SINUS RHYTHM POSSIBLE LEFT ATRIAL ENLARGEMENT BORDERLINE ECG Electronically Signed By: Bo Jansen [facility] Card Domingo Samson MD ECG ORDERABLES Final Resu lt Performing Organization Address [facility] Co de Phone Number [facility] [employer] [facility] * eGFR (04/19/2025 12:55 PM CDT) Pathologist [facility] eGFR >90 >=60 mL/min/1. 73 m2 Comment: [...] BLOOD ORDERABLES Final Result Performing Organization Address City/[facility]/ZIP Co de Phone Number [facility] [address] [employer] [place], [place] [phone] * Thyroid Function Lucas (04/19/2025 12:55 PM CDT) Pathologist [facility] [place] TSH 1.02 0.30 - 4.20 mcIUnit/mL Blood 04/19/2025 12:5 5 PM CDT 04/19/2025 1:22 PM CDT Domingo Samson MD LAB BLOOD ORDERABLES Final Result [facility] [address] Department [employer] [place], [place] [id number] * CBC without differential (04/19/2025 12:55 PM CDT) WBC 8.05 3.80 - 9.90 K/cumm Hgb 14.2 11.9 - 15.5 g/dL [facility] Hct 41.6 35.6 - 45.5 % [facility] Plt 326 150 - 400 K/cumm [facility] MPV 10.1 9.1 - 12.3 fL [facility] RBC 4.60 3.90 - 5.20 M/cumm [facility] MCV 90.4 81.3 - 96.4 fL [facility] MCH 30.9 27.1 - 33.3 pg [facility] MCHC 34.1 32.3 - 35.7 g/dL [facility] RDW CV 12.2 11.1 - 14.9 % [facility] RDW SD 39.7 35.7 - 48.1 fL [facility] NRBC abs 0.00 0.00 - 0.01 K/cumm [facility] Blood 04/19/2025 12:5 5 PM CDT 04/19/2025 1:22 PM CDT Domingo Samson MD LAB BLOOD ORDERABLES Final Result Performing Organization Address [facility] de Phone Number [facility] [address] [employer] [place], [place] [phone] * Hemoglobin A1c (04/19/2025 12:55 PM CDT) [facility] Hgb A1C 5.2 4.0 - 5.6 % Estimated Average Glucose 103 mg/dL [facility] Comment: The ADA recommends reporting an estimated Average Glucose (eAG) with all Hemoglobin A1c results using the equation derived from a study of 507 normal and diabetic adults. Minority populations were underrepresented and children were not included. (Diabetes Care 31:6438-6915, 2008). The eAG is not equivalent to a fasting glucose. Blood 04/19/2025 12:5 5 PM CDT 04/19/2025 1:22 PM CDT Domingo Samson MD LAB BLOOD ORDERABLES Final Result Performing Organization Address City/[facility]/ZIP Co de Phone Number [facility] [address] [facility] [employer] [place], [place] [id number] * Cortisol (04/19/2025 12:55 PM CDT) Pathologist [facility] [place] Cortisol 10.5 4.8 - 19.5 mcg/dl Blood 04/19/2025 12:5 5 PM CDT 04/19/2025 1:22 PM CDT Domingo Samson MD LAB BLOOD ORDERABLES Final Result [facility] [address] [place] [address] * (ABNORMAL) Comprehensive metabolic panel (04/19/2025 12:55 PM CDT) [facility] Sodium 139 135 - 145 mmol/L Potassium, pl 4.4 3.3 - 4.9 mmol/L [facility] Comment:Hemolyzed; potassium value may be falsely elevated by as much as 0.6 - 1.0 mmol/L. Suggest redraw and reanalysis Chloride 104 97 - 110 mmol/L [facility] CO2 20(L) 22 - 32 mmol/L [facility] Anion gap 15 2 - 15 mmol/L [facility] BUN 18 6 - 25 mg/dL [facility] Creatinine 0.53(L) 0.60 - 1.10 mg/dL [facility] Glucose 86 70 - 199 mg/dL [facility] Comment: Interpretive Data Fasting glucose >/= 126 [...] 2022. Calcium 9.0 8.5 - 10.3 mg/dL [facility] Bilirubin, total 0.2 0.1 - 1.2 mg/dL [facility] Protein, pl 7.0 6.5 - 8.5 g/dL [facility] Albumin 4.2 3.5 - 5.0 g/dL [facility] Alk phos 19(L) 40 - 130 Units/L [facility] ALT 18 7 - 45 Units/L [facility] Comment:Moderately Hemolyzed Specimen AST 31 10 - 45 Units/L [facility] Comment:Moderately Hemolyzed Specimen Blood 04/19/2025 12:5 5 PM CDT 04/19/2025 1:22 PM CDT Domingo Samson MD LAB BLOOD ORDERABLES Final Result Performing Organization Address [facility] Co de Phone Number [facility] [address] [place] [address] * POCT glucose (04/19/2025 12:54 PM CDT) [facility] Glucose, POC 87 70 - 199 mg/dL Comment: For Glucose values <35 mg/dl when Hematocrit is >60 mg/dl,the test may not accurately detect significant hypoglycemia,and testing in the Laboratory should be considered if clinically indicated. Blood 04/19/2025 12:5 4 PM CDT 04/19/2025 12:54 PM CDT Result [facility] Notinfile Unknown LAB POCT ORDERABLES - DEVICE F inal Result Performing Organization Address [facility] Co de Phone Number [facility] [address] [place] [address] from Last 3 Months Insurance [facility] Advance Directives For more information, please contact: [phone] * Full Code (Latest Code Status on File) Date Activated Date Inactivated Comments 04/19/2025 10:05 PM 04/24/2025 7:10 PM Care Teams Website Designer Relationship Specialty Start Date End Date Yolande Rodriguez NP [address] [place] [address] PCP - General Nurse Practitioner 04/09/25
[2025-07-01 11:08] LABS: Anti-CCP Ab, IgG/IgA 9 units (0-19)
[2025-07-01 15:09] LABS: ANA by IFA Rfx Titer/Pattern Negative (.)
== END 2025-06-30 09:06 | disposition home or self-care (01) ==
PROVIDERS: PCP Nurse Practitioner Family; Visit Provider Nurse Practitioner Family
DX: R53.82 Chronic fatigue, unspecified (principal)
CPT/HCPCS: 36415; 85652; 86038; 86200; 86430

== ENCOUNTER 2025-06-30 12:17 | Outpatient (CLI) | payer OTHER, SELFPAY ==
--- NOTE | ~2025-06-30 | MR_ITS ---
EXAMINATION: MR thoracic spine wo/w con DATE: 06/30/2025 14:18 INDICATION: Multiple sclerosis, unspecified. TECHNIQUE: Magnetic resonance imaging (MRI) of the thoracic spine was performed without and with 12 mL MultiHance intravenous contrast. COMPARISON: None FINDINGS: Bone alignment is normal. Vertebral body heights are normal. Intervertebral disc heights are normal. There is multilevel mild facet joint osteoarthritis. At T10-T11, there is a central protrusion with mild central canal stenosis. There is no neural foraminal stenosis. The spinal cord signal i ntensity is normal. The conus medullaris is at L1. IMPRESSION: 1. Normal spinal cord. 2. Mild thoracic spondylosis. Reviewed, dictated and finalized at location E. INSPECTOR
--- NOTE | ~2025-06-30 | MR_ITS ---
EXAMINATION: MR cervical spine wo/w con DATE: 06/30/2025 14:17 INDICATION: Multiple sclerosis, unspecified. TECHNIQUE: Magnetic resonance imaging (MRI) of the cervical spine was performed without and with 12 mL MultiHance intravenous contrast. COMPARISON: None FINDINGS: Bone alignment is normal. Vertebral body heights are normal. Intervertebral disc heights are normal. The spinal cord signal intensity is normal. The following disc levels are specifically discussed: C2-C3: The disc does not extend beyond the endplate margin. There is no uncovertebral joint osteoarthritis. There is no facet joint osteoarthritis. There is no neural foraminal stenosis. There is no central canal stenosis. C3-C4: The disc does not extend beyond the endplate margin. There is no uncovertebral joint osteoarthritis. There is mild bilateral facet joint osteoarthritis. There is no neural foraminal stenosis. There is no central canal stenosis. C4-C5: There is a central protrusion. There is mild left uncovertebral joint osteoarthritis. There is mild bilateral facet joint osteoarthritis. There is mild left neural foraminal stenosis. There is mild central canal stenosis. C5-C6: The disc is bulging. There is mild bilateral uncovertebral joint osteoarthritis. There is mild bilateral facet joint osteoarthritis. There is no neural foraminal stenosis. There is mild central canal stenosis. C6-C7: There is a central protrusion. There is no uncovertebral joint osteoarthritis. There is mild right and severe left facet joint osteoarthritis. There is mild left neural foraminal stenosis. There is mild central canal stenosis. C7-T1: The disc does not extend beyond the endplate margin. There is no uncovertebral joint osteoarthritis. There is moderate bilateral facet joint osteoarthritis. There is mild bilateral neural foraminal stenosis. There is no central canal stenosis. IMPRESSION: 1. Normal spinal cord. 2. Mild cervical spondylosis. Reviewed, dictated and finalized at location E. LE GAUGER
--- OUTSIDE RECORDS SUMMARY | 2025-06-30 12:42 | XMS_ITS | Clinical Summary ---
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
--- OUTSIDE RECORDS SUMMARY | 2025-06-30 12:42 | XMS_ITS | Clinical Summary ---
Author Organization [facility] Address [address] [place] [address] Care Team Providers Care Statistician Mathematical Name Role Phone VikramEmma amayaholly oLwe APRN-SURVEYOR CHAIN HELPER Primary Care Provider Source Comments [facility],non-owned Affiliates and Associated Physician Practices is amultiple site organization consisting of ambulatory clinics and hospital sitesin [place], [place], [place] and [place]. This disclosure is being madepursuant to the Care Everywhere program and may not contain all information available regarding this patient. 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 Not on file Not on file Last Filed Vital Signs Vital Sign Reading Time Taken Comments Blood Pressure 121/82 10/27/2024 3:57 PM CDT Pulse 93 10/27/2024 3:57 PM CDT Temperature 36.2 C (97.1 F) 06/19/2024 10:07 AM RECYCLING CENTER OPERATOR Respiratory Rate 18 06/19/2024 10:07 AM RECYCLING CENTER OPERATOR Oxygen Saturation 98% 10/27/2024 3:57 PM [...] Office Visit [facility] - Neurology [address] [place] [address], [place] [id number] Toney Wolfe, VILLA-SURVEYOR CHAIN HELPER [address] [place] [address] Health Maintenance Due Date Last [...] ve Non-react peter 04/10/2024 1:44 PM CDT [facility] Comment:No Laboratory eviden ce of HIV infection. Blood BLOOD SPECIMEN / Unknown Lab Venipuncture / Unknown 04/10/2024 10:40 AM CDT 04/10/2024 12:14 PM CDT Sunshine Sue HORTICULTURAL FARMWORKER-SURVEYOR CHAIN HELPER LAB - CHEMISTRY ORDERAB LES Final Result Performing Organization Address City/[facility] Co de Phone Number [address] [address], [facility] [phone] * HEPATITIS C ANTIBODY (04/10/2024 10:40 AM CDT) Hepatitis C Antibody Non-react peter Non-reac tive 04/10/2024 1:44 PM CDT [facility] Comment:Hepatitis C Antibody screen indicates no [...] ORDERAB LES Final Result Performing Organization Address City/[facility] Co de Phone Number [address] [address], [facility] [phone] from Last 3 Months or Most Recently Relevant to Health Maintenance Care Teams Statistician Mathematical Relationship Specialty Start Date End Date Sunshine Sue APRN-CNP [address] OF [facility] [place] [address] PCP - General Nurse Practitioner Family 04/17/23
--- OUTSIDE RECORDS SUMMARY | 2025-06-30 12:42 | XMS_ITS | Clinical Summary ---
Author Organization [facility] Address [address] [place] [address] Care Team Providers Care Civil Drafter Name Role Phone Yolande Rodriguez NP Primary Care Provider [phone] Allergies No known active allergies Medications albuterol [...] Description 05/22/2025 Orders Only [facility] [address] [address] Marcelina Yi MD Low serum alkaline phosphatase (Primary Dx) 04/28/2025 7:55 AM CDT Lab [address] [address] Low serum alkaline phosphatase 04/27/2025 1:30 PM CDT Office Visit [facility] [address] [address] Marcelina Yi MD Hypoglycemia, unspecified (Primary Dx); Low serum alkaline phosphatase; Fatigue, unspecified type 04/19/2025 12:42 PM CDT - 04/24/2025 3:05 PM CDT Hospital Encounter [facility] [address] [place] [address] Domingo Samson MD Anacius, Elisabeth, MD Avagyan, Juletta, MD Shahnawaz, MD Bella Patel, Johnny Rios, DO Hypoglycemia (Primary Dx); Other fatigue Discharge Disposition: Discharge to home or self care from Last 3 Months Surgical History Surgery Date Site/Laterality Comments WISDOM TOOTH EXTRACTION Oral Surgery Tooth Extraction Buffalo Tooth - (Added by ) Medical History [...] often do you attend chur ch or bahai services? More than 4 times per year 04/21/2025 Do you belong to any clubs o r organizations such as sabianist groups, unions, fraternal or athletic groups, or [...] any time in the past 12 m [facility], were you homeless or living in a nursing home (including now)? 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 Accordingly, serum specimens with significant elevations of liver ALP activity may yield artificially elevated results in the BAP assay. Test Performed by: [place] [address] Lead Infrastructure Architect: Kate Wilde Ph.D.; CLIA# [id number] Blood 04/28/2025 7:59 AM CDT 04/28/2025 10:32 AM CDT Marcelina Yi MD LAB BLOOD ORDERABLES Final Resul t [facility] [address] [facility] Department [place] [address] [facility] Lab * (ABNORMAL) Alkaline phosphatase (04/28/2025 7:59 AM CDT) [facility] Alk phos 18(L) 40 - 130 Units/L Blood 04/28/2025 7:59 AM CDT 04/28/2025 10:33 AM CDT Marcelina Yi MD LAB BLOOD ORDERABLES Final Resul t Performing Organization Address City/[facility]/ZIP Co de Phone Number EBEN [address] [address] * PTH (04/28/2025 7:59 AM CDT) [facility] PTH 28 15 - 65 pg/mL Blood 04/28/2025 7:59 AM CDT 04/28/2025 10:32 AM CDT Marcelina Yi MD LAB BLOOD ORDERABLES Final Resul t Performing Organization Address [facility]/RUST de Phone Number EBEN [address] [address] * POCT glucose (04/27/2025 1:44 PM CDT) [facility] Glucose Blood, POC 104 Normal Fasting 70 - 100, Random <200 mg/dL Blood 04/27/2025 1:44 PM CDT Marcelina Yi MD POINT OF CARE TEST ORDERABLES Fi nal Result * POCT glucose (04/24/2025 12:07 PM CDT) [facility] Glucose, POC 93 70 - 199 mg/dL Comment: For Glucose values <35 mg/dl when Hematocrit is >60 mg/dl,the test may not accurately detect significant hypoglycemia,and testing in the Laboratory should be considered if clinically indicated. Blood 04/24/2025 12:0 7 PM CDT 04/24/2025 12:07 PM CDT Johnny Blanco DO LAB POCT ORDERABLES - D DENISE Final Result Performing Organization Address City/[facility]/ZIP Co de Phone Number EBEN [facility] [address] Department [place] [address] * (ABNORMAL) POCT glucose (04/24/2025 8:52 AM CDT) [facility] Glucose, POC 201(H) 70 - 199 mg/dL Comment: For Glucose values <35 mg/dl when Hematocrit is >60 mg/dl,the test may not accurately detect significant hypoglycemia,and testing in the Laboratory should be considered if clinically indicated. Blood 04/24/2025 8:52 AM CDT 04/24/2025 8:52 AM CDT Johnny Blanco DO LAB POCT ORDERABLES - D EVICE Final Result Performing Organization Address [facility]/RUST de Phone Number [facility] [address] [facility] [place], [place] [phone] * POCT glucose (04/24/2025 7:57 AM CDT) [...] [facility] de Phone Number [facility] [address] [facility] [place] [address] * POCT glucose (04/24/2025 5:54 AM CDT) [...] D EVICE Final Result Performing Organization Address City/[facility]/ZIP Co de Phone Number EBEN [facility] [address] Department [place] [address] * POCT glucose (04/23/2025 9:38 PM CDT) [...] Final Result Performing Organization Address [facility] Co de Phone Number EBEN [facility] [address] Department [facility] [place] [address] * POCT glucose (04/23/2025 5:09 PM CDT) [...] Final Result Performing Organization Address [facility] Co de Phone Number EBEN [facility] [address] Department [facility] [place] [address] * POCT glucose (04/23/2025 3:52 PM CDT) [...] Final Result Performing Organization Address [facility] Co de Phone Number [facility] [address] Department [facility] [place] [address] * Magnesium - Add on lab test (04/23/2025 2:58 PM CDT) [facility] Acceptable Yes Blood 04/23/2025 2:58 PM CDT 04/23/2025 2:58 PM CDT Narrative [facility] - 04/23/2025 2:58 PM CDT Name of Test->Magnesium Monse Rajan MD LAB BLOOD ORDERABLES Final Resul t Performing Organization Address [facility] Co de Phone Number [facility] [address] Department [facility] [place], [place] [phone] * POCT glucose (04/23/2025 2:01 PM CDT) [facility] Glucose, POC 130 70 - 199 mg/dL Comment: For Glucose values <35 mg/dl when Hematocrit is >60 mg/dl,the test may not accurately detect significant hypoglycemia,and testing in the Laboratory should be considered if clinically indicated. Blood 04/23/2025 2:01 PM CDT 04/23/2025 2:01 PM CDT Johnny Blanco DO LAB POCT ORDERABLES - D EVICE Final Result Performing Organization Address [facility] Co de Phone Number [facility] [address] Department [facility] [place], [place] [phone] * eGFR (04/23/2025 12:25 PM CDT) [facility] eGFR >90 >=60 mL/min/1. 73 m2 [...] ORDERABLES Final Resul t Performing Organization Address City/[facility]/ZIP Co de Phone Number [facility] [address] [place] [address] * (ABNORMAL) Beta-hydroxybutyrate (04/23/2025 12:25 PM CDT) Beta-Hydroxybut yrate 2.2(H) <=0.5 mmol/L Blood 04/23/2025 12:2 5 PM CDT 04/23/2025 12:45 PM CDT Monse Rajan MD LAB BLOOD ORDERABLES Final Resul t EB[facility] [address] Department [employer] [place], [place] [phone] * (ABNORMAL) C-peptide (04/23/2025 12:25 PM CDT) C-peptide 0.72(L) 1.10 - 4.40 ng/mL Comment:Testing performed by : [facility], [address] [facility], [place]., [address] Blood 04/23/2025 12:2 5 PM CDT 04/23/2025 4:55 PM CDT Monse Rajan MD LAB BLOOD ORDERABLES Final Resul t Performing Organization Address City/[facility]/ZIP Co de Phone Number [facility] [address] Department [place] [address] * Magnesium (04/23/2025 12:25 PM CDT) Pathologist [facility] Magnesium 2.2 1.4 - 2.5 mg/dL Blood 04/23/2025 12:2 5 PM CDT 04/23/2025 12:45 PM CDT Johnny Blanco DO LAB BLOOD ORDERABLES Fi nal Result Performing Organization Address [facility] Co de Phone Number [facility] [address] Department [place] [address] * (ABNORMAL) Basic metabolic panel (04/23/2025 12:25 PM CDT) [facility] Sodium 135 135 - 145 mmol/L Potassium, pl 4.0 3.3 - 4.9 mmol/L [facility] Chloride 98 97 - 110 mmol/L [facility] CO2 20(L) 22 - 32 mmol/L [facility] Anion gap 17(H) 2 - 15 mmol/L [facility] BUN 15 6 - 25 mg/dL [facility] Creatinine 0.70 0.60 - 1.10 mg/dL [facility] Glucose 69(L) 70 - 199 mg/dL [facility] Comment: Interpretive Data Fasting glucose >/= [...] 2022. Calcium 9.3 8.5 - 10.3 mg/dL [facility] Blood 04/23/2025 12:2 5 PM CDT 04/23/2025 12:45 PM CDT Monse Rajan MD LAB BLOOD ORDERABLES Final Resul t Performing Organization Address [facility] Co de Phone Number [facility] [address] Department of [facility] [place], [place] [phone] * POCT glucose (04/23/2025 11:12 AM CDT) [...] Final Result Performing Organization Address [facility] Co de Phone Number [facility] [address] Department [place] [facility] [address] * (ABNORMAL) POCT glucose (04/23/2025 10:10 AM [...] Final Result Performing Organization Address [facility] Co de Phone Number EBEN [facility] [address] [facility] [place], [place] [phone] * (ABNORMAL) POCT glucose (04/23/2025 9:00 AM [...] Final Result Performing Organization Address [facility] Co de Phone Number EBEN [facility] [address] [facility] [address] * (ABNORMAL) POCT glucose (04/23/2025 8:11 AM [...] D EVICE Final Result Performing Organization Address City/[facility] Co de Phone Number EBEN [facility] [address] [facility] [place], [place] [phone] * (ABNORMAL) POCT glucose (04/23/2025 7:02 AM CDT) Glucose, POC 67(L) 70 - 199 mg/dL Comment: For Glucose values <35 mg/dl when Hematocrit is >60 mg/dl,the test may not accurately detect significant hypoglycemia,and testing in the Laboratory should be considered if clinically indicated. Glucose comment 1 RN/MD Notified [facility] Blood 04/23/2025 7:02 AM CDT 04/23/2025 7:02 AM CDT Johnny Blanco DO LAB POCT ORDERABLES - D EVICE Final Result Performing Organization Address [facility]/[place]UST de Phone Number [facility] [address] [facility] [place] [address] * POCT glucose (04/23/2025 6:02 AM CDT) [...] [facility] de Phone Number [facility] [address] [facility] [address] * (ABNORMAL) POCT glucose (04/23/2025 5:02 AM [...] Final Result Performing Organization Address [facility] Co de Phone Number [facility] [address] Department [facility] [place], [place] [phone] * (ABNORMAL) POCT glucose (04/23/2025 4:02 AM CDT) Glucose, POC 62(L) 70 - 199 mg/dL Comment: For Glucose values <35 mg/dl when Hematocrit is >60 mg/dl,the test may not accurately detect significant hypoglycemia,and testing in the Laboratory should be considered if clinically indicated. Glucose comment 1 RN/ Notified [facility] Blood 04/23/2025 4:02 AM CDT 04/23/2025 4:02 AM CDT Johnny Blanco DO LAB POCT ORDERABLES - D EVICE Final Result Performing Organization Address [facility] de Phone Number [facility] [address] [facility] [address] * (ABNORMAL) POCT glucose (04/23/2025 2:57 AM CDT) Glucose, POC 60(L) 70 - 199 mg/dL Comment: For Glucose values <35 mg/dl when Hematocrit is >60 mg/dl,the test may not accurately detect significant hypoglycemia,and testing in the Laboratory should be considered if clinically indicated. Glucose comment 1 RN/ Notified [facility] Blood 04/23/2025 2:57 AM CDT 04/23/2025 2:57 AM CDT Johnny Blanco DO LAB POCT ORDERABLES - D EVICE Final Result Performing Organization Address [facility] Co de Phone Number [facility] [address] [facility] [place], [place] [phone] * (ABNORMAL) POCT glucose (04/23/2025 2:02 AM CDT) Glucose, POC 69(L) 70 - 199 mg/dL Comment: For Glucose values <35 mg/dl when Hematocrit is >60 mg/dl,the test may not accurately detect significant hypoglycemia,and testing in the Laboratory should be considered if clinically indicated. Glucose comment 1 RN/MD Notified [facility] Blood 04/23/2025 2:02 AM CDT 04/23/2025 2:02 AM CDT Johnny Blanco DO LAB POCT ORDERABLES - D EVICE Final Result Performing Organization Address [facility] Co de Phone Number [facility] [address] [facility] [place] [address] * (ABNORMAL) POCT glucose (04/23/2025 1:11 AM [...] [facility] de Phone Number [facility] [address] [facility] [place] [address] * POCT glucose (04/22/2025 11:59 PM CDT) [...] Final Result Performing Organization Address [facility] Co de Phone Number EBEN [facility] [address] Department [place] [address] * (ABNORMAL) POCT glucose (04/22/2025 11:00 PM [...] D EVICE Final Result Performing Organization Address [facility] Co de Phone Number EBEN [facility] [address] Department [place] [address] * POCT glucose (04/22/2025 10:01 PM CDT) [...] Final Result Performing Organization Address [facility] Co de Phone Number [facility] [address] Department [facility] [address] * (ABNORMAL) POCT glucose (04/22/2025 9:04 PM [...] Final Result Performing Organization Address [facility]/ZIP Co de Phone Number [facility] [address] [facility] [place] [address] * POCT glucose (04/22/2025 8:03 PM CDT) Glucose, POC 71 70 - 199 mg/dL Comment: For Glucose values <35 mg/dl when Hematocrit is >60 mg/dl,the test may not accurately detect significant hypoglycemia,and testing in the Laboratory should be considered if clinically indicated. Glucose comment 1 RN/MD Notified [facility] Blood 04/22/2025 8:03 PM CDT 04/22/2025 8:03 PM CDT Johnny Blanco DO LAB POCT ORDERABLES - D EVICE Final Result Performing Organization Address [facility] Co de Phone Number [facility] [address] [facility] [place] [address] * POCT glucose (04/22/2025 5:59 PM CDT) [...] D EVICE Final Result Performing Organization Address City/[facility]/ZIP Co de Phone Number [facility] [address] [facility] [place], [place] [phone] * eGFR (04/22/2025 5:37 PM CDT) eGFR [...] ORDERABLES Final Resul t Performing Organization Address City/[facility] Co de Phone Number [facility] [address] [place] [facility] [place], [place] [phone] * (ABNORMAL) Beta-hydroxybutyrate (04/22/2025 5:37 PM CDT) Beta-Hydroxybut yrate 1.9(H) <=0.5 mmol/L Blood 04/22/2025 5:37 PM CDT 04/22/2025 5:46 PM CDT Monse Rajan MD LAB BLOOD ORDERABLES Final Resul t Performing Organization Address City/[facility] Co de Phone Number [facility] [address] Department [place] [address] * Proinsulin (04/22/2025 5:37 PM CDT) Pathologist [facility] Proinsulin 3.7 3.6 - 22 pmol/L [place] [facility] Comment: ADDITIONAL INFORMATION This test was developed and its performance characteristics determined by [facility] in a manner consistent with CLIA requirements. This test has not been cleared or approved by the U.S. Food and Drug Administration. Test Performed by: [facility] [address] [place] [address] Lead Infrastructure Architect: Kate Wilde Ph.D.; CLIA# [id number] Blood 04/22/2025 5:37 PM CDT 04/22/2025 5:43 PM CDT Monse Rajan MD LAB BLOOD ORDERABLES Final Resul t Performing Organization Address City/[facility]/ZIP Co de Phone Number EB[facility] [address] [employer] [place] [address] [place] [facility] * Insulin, total (04/22/2025 5:37 PM CDT) Pathologist [facility] Insulin 3.6 2.6 - 25.0 mcIUnit/mL Comment:Testing performed by : [facility], [address] [facility], [place]., [address] Blood 04/22/2025 5:37 PM CDT 04/22/2025 7:28 PM CDT Monse Rajan MD LAB BLOOD ORDERABLES Final Resul t [facility] [address] [employer] [place] [address] * (ABNORMAL) C-peptide (04/22/2025 5:37 PM CDT) Pathologist [facility] C-peptide 1.02(L) 1.10 - 4.40 ng/mL Comment:Testing performed by : [facility], [address] [place]., [address] Blood 04/22/2025 5:37 PM CDT 04/22/2025 7:28 PM CDT us Monse Rajan MD LAB BLOOD ORDERABLES Final Resul t Performing Organization Address City/[facility]/ZIP Co de Phone Number [facility] [address] Department [place] [address] * (ABNORMAL) Basic metabolic panel (04/22/2025 5:37 PM CDT) Sodium 135 135 - 145 mmol/L Potassium, pl 4.1 3.3 - 4.9 mmol/L [facility] Chloride 101 97 - 110 mmol/L [facility] CO2 18(L) 22 - 32 mmol/L [facility] Anion gap 16(H) 2 - 15 mmol/L [facility] BUN 18 6 - 25 mg/dL [facility] Creatinine 0.61 0.60 - 1.10 mg/dL [facility] Glucose 68(L) 70 - 199 mg/dL [facility] Comment: Interpretive Data Fasting glucose >/= [...] 2022. Calcium 8.9 8.5 - 10.3 mg/dL [facility] Blood 04/22/2025 5:37 PM CDT 04/22/2025 5:46 PM CDT us Monse Rajan MD LAB BLOOD ORDERABLES Final Resul t Performing Organization Address City/[facility]/ZIP Co de Phone Number [facility] [address] Department [place] [address] * POCT glucose (04/22/2025 5:04 PM CDT) [...] [facility] de Phone Number [facility] [address] Department [place] [address] * (ABNORMAL) POCT glucose (04/22/2025 3:28 PM [...] Final Result Performing Organization Address [facility] Co de Phone Number [facility] [address] [facility] [place] [address] * POCT glucose (04/22/2025 3:09 PM CDT) [...] Final Result Performing Organization Address [facility] Co de Phone Number [facility] [address] [facility] [place], [place] [phone] * (ABNORMAL) POCT glucose (04/22/2025 12:49 PM [...] [facility] de Phone Number [facility] [address] [facility] [place], [place] [phone] * POCT glucose (04/22/2025 10:53 AM CDT) [...] Final Result Performing Organization Address [facility] Co de Phone Number [facility] [address] [facility] [place], [place] [phone] * (ABNORMAL) POCT glucose (04/22/2025 8:54 AM [...] Final Result Performing Organization Address [facility] Co de Phone Number [facility] [address] [facility] [place], [place] [phone] * (ABNORMAL) POCT glucose (04/22/2025 6:08 AM [...] D EVICE Final Result Performing Organization Address [facility]/[place] de Phone Number [facility] [address] [facility] [place] [address] * (ABNORMAL) Prolactin (04/22/2025 6:06 AM CDT) Prolactin 27.800(H) 4.790 - 23.300 ng/mL Blood 04/22/2025 6:06 AM CDT 04/22/2025 6:26 AM CDT Johnny Blanco DO LAB BLOOD ORDERABLES Fi nal Result Performing Organization Address [facility] [facility]/ZIP Co de Phone Number [facility] [address] Department [place] [address] * POCT glucose (04/22/2025 4:02 AM CDT) [...] Final Result Performing Organization Address [facility]/ZIP Co de Phone Number [facility] [address] Department [place] [address] * POCT glucose (04/22/2025 2:09 AM CDT) Glucose, POC 72 70 - 199 mg/dL Comment: For Glucose values <35 mg/dl when Hematocrit is >60 mg/dl,the test may not accurately detect significant hypoglycemia,and testing in the Laboratory should be considered if clinically indicated. Blood 04/22/2025 2:09 AM CDT 04/22/2025 2:09 AM CDT Johnny Blanco DO LAB POCT ORDERABLES - D EVICE Final Result [facility] [address] Department [place] [address] * POCT glucose (04/22/2025 12:06 AM CDT) [...] Final Result Performing Organization Address [facility] Co de Phone Number [facility] [address] Department of [facility] [place], [place] [phone] * (ABNORMAL) POCT glucose (04/21/2025 10:09 PM [...] [facility] de Phone Number [facility] [address] [facility] [place], [place] [phone] * POCT glucose (04/21/2025 8:09 PM CDT) [...] Final Result Performing Organization Address [facility] Co de Phone Number [facility] [address] Department of [facility] [place], [place] [phone] * POCT glucose (04/21/2025 6:06 PM CDT) [...] Final Result Performing Organization Address [facility] de Phone Number [facility] [address] Department of [facility] [place] [address] * POCT glucose (04/21/2025 4:07 PM CDT) [facility] Glucose, POC 82 70 - 199 mg/dL Comment: For Glucose values <35 mg/dl when Hematocrit is >60 mg/dl,the test may not accurately detect significant hypoglycemia,and testing in the Laboratory should be considered if clinically indicated. Blood 04/21/2025 4:07 PM CDT 04/21/2025 4:07 PM CDT Johnny Blanco LAB POCT ORDERABLES - D EVICE Final Result Performing Organization Address [facility] de Phone Number [facility] [address] [place] [address] * BLOOD MISC TO [place] (04/21/2025 3:36 PM CDT) [facility] See Footnote [place] ref [facility] Comment: Test Result Flag Unit RefValue Insulin Antibodies <5.0 uU/mL This test is also known as insulin autoantibody or IAA. This test was developed and its performance characteristics determined by [employer]. It has not been cleared or approved by the Food and Drug Administration. Reference Range: <5.0 Negative > or = 5.0 Positive Test Performed by: [facility] [address] [place] [address] Blood 04/21/2025 3:36 PM CDT 04/21/2025 3:51 PM CDT Johnny Blanco DO LAB BLOOD ORDERABLES nal Result [facility] [address] Department [place] [address] [facility] * Hypoglycemic agent screen (04/21/2025 3:36 PM CDT) Chlorpropamide Negative [facility] Comment: REFERENCE VALUE Negative; Kblhgz=148 ng/mL Glimepiride Negative [facility] Comment: REFERENCE VALUE Negative; Cutoff=20 ng/mL Glipizide Negative [facility] Comment: REFERENCE VALUE Negative; Cutoff=5 ng/mL Glyburide Negative [facility] Comment: REFERENCE VALUE Negative; Cutoff=5 ng/mL Nateglinide Negative [facility] Comment: REFERENCE VALUE Negative; Cutoff=5 ng/mL Pioglitazone Negative [facility] Comment: REFERENCE VALUE Negative; Cutoff=20 ng/mL Repaglinide Negative [facility] Comment: REFERENCE VALUE Negative; Cutoff=5 ng/mL Rosiglitazone Negative [facility] Comment: REFERENCE VALUE Negative; Cutoff=20 ng/mL Tolazamide Negative [facility] Comment: REFERENCE VALUE Negative; Cutoff=50 ng/mL Tolbutamide Negative [facility] Comment: REFERENCE VALUE Negative; Cutoff=20 ng/mL ADDITIONAL INFORMATION This test was developed and its performance characteristics determined by [facility] in a manner consistent with CLIA requirements. This test has not been cleared or approved by the U.S. Food and Drug Administration. Test Performed by: [facility] [address] [place] [address] Lead Infrastructure Architect: Kate Wilde Ph.D.; CLIA# [id number] Blood 04/21/2025 3:36 PM CDT 04/21/2025 3:51 PM CDT Johnny Blanco LAB BLOOD ORDERABLES Fi nal Result [facility] [address] [facility] [address] [place] [facility] * Prolactin (04/21/2025 3:36 PM CDT) Prolactin 9.510 4.790 - 23.300 ng/mL Blood 04/21/2025 3:36 PM CDT 04/21/2025 3:53 PM CDT Johnny Blanco LAB BLOOD ORDERABLES Fi nal Result Performing Organization Address City/[facility] Co de Phone Number [facility] [address] [facility] [address] * Insulin-like growth factor (IGF-1) (04/21/2025 3:36 PM CDT) Insulin-like growth factor 1 (IGF-1) 229 60 - 280 ng/mL Comment: Interpretive Data Janusz Stage Male Female I 80-250 80-320 II 100-450 120-450 III 250-500 250-550 IV 225-600 225-600 V 225-500 180-500 Assay calibrated to WHO and instituted at [facility] 10/2017. References: 1. [employer] IGF-1 Package Insert 2017-04, V 1.0. 2. [place] [employer] IGFMS entry ([email or web address]) accessed 11-07-2017. 3. Kimberley M, Mary Jane N, Tramaine RT et al. J Clin Endocrinol Metab 2014;99:6587-3272. Current interpretive data was last revised on 2017. Testing performed by: [facility], [facility], [place]., [address] Blood 04/21/2025 3:36 PM CDT 04/22/2025 8:33 PM CDT Johnny Blanco DO LAB BLOOD ORDERABLES Fi nal Result Performing Organization Address [facility] Co de Phone Number [facility] [address] [facility] [place] [address] * POCT glucose (04/21/2025 2:28 PM CDT) [...] D EVICE Final Result Performing Organization Address [facility]/[place] de Phone Number [facility] [address] [place] [facility] [address] * POCT glucose (04/21/2025 11:56 AM CDT) [...] D EVICE Final Result Performing Organization Address City/[facility] Co de Phone Number [facility] [address] [facility] [place], [place] [phone] * POCT glucose (04/21/2025 9:41 AM CDT) [...] Final Result Performing Organization Address [facility] Co de Phone Number [facility] [address] [facility] [place], [place] [phone] * POCT glucose (04/21/2025 7:58 AM CDT) [...] D EVICE Final Result Performing Organization Address [facility]/[place] de Phone Number [facility] [address] [facility] [address] * Beta-hydroxybutyrate (04/21/2025 7:11 AM CDT) Beta-Hydroxybut yrate 0.5 <=0.5 mmol/L Blood 04/21/2025 7:11 AM CDT 04/21/2025 7:49 AM CDT Narrative [facility] - 04/21/2025 8:17 AM CDT To be drawn only POC BG DROP <54 Monse Rajan MD LAB BLOOD ORDERABLES Final Resul t Performing Organization Address [facility] Co de Phone Number [facility] [address] Department [facility] [place], [place] [phone] * Proinsulin (04/21/2025 7:11 AM CDT) Proinsulin 4.3 3.6 - 22 pmol/L [facility] ref [facility] Comment: ADDITIONAL INFORMATION This test was developed and its performance characteristics determined by [facility] in a manner consistent with CLIA requirements. This test has not been cleared or approved by the U.S. Food and Drug Administration. Test Performed by: [facility] [address] [place] [address] Lead Infrastructure Architect: Kate Wilde Ph.D.; CLIA# [id number] Blood 04/21/2025 7:11 AM CDT 04/21/2025 7:49 AM CDT Narrative [facility] - 04/24/2025 3:21 PM CDT To be drawn only POC BG DROP <54 Monse Rajan MD LAB BLOOD ORDERABLES Final Resul t [facility] [address] [employer] [place], [place] [phone] [place] ref [facility] * Insulin, total (04/21/2025 7:11 AM CDT) Insulin 4.4 2.6 - 25.0 mcIUnit/mL Comment:Testing performed by : [facility], [address] [facility] [address] Blood 04/21/2025 7:11 AM CDT 04/23/2025 11:22 AM CDT Narrative [facility] - 04/23/2025 3:43 PM CDT To be drawn only POC BG DROP <54 Monse Rajan MD LAB BLOOD ORDERABLES Final Resul t [facility] [address] Department [place] [address] * C-peptide (04/21/2025 7:11 AM CDT) C-peptide 1.55 1.10 - 4.40 ng/mL Comment:Testing performed by : [facility], [address] [facility], [place]., [address] Blood 04/21/2025 7:11 AM CDT 04/21/2025 11:10 AM CDT Narrative [facility] - 04/22/2025 3:42 PM CDT To be drawn only POC BG DROP <54 Monse Rajan MD LAB BLOOD ORDERABLES Final Resul t [facility] [address] Department [place] [address] * POCT glucose (04/21/2025 6:18 AM CDT) Glucose, POC 89 70 - 199 mg/dL Comment: For Glucose values <35 mg/dl when Hematocrit is >60 mg/dl,the test may not accurately detect significant hypoglycemia,and testing in the Laboratory should be considered if clinically indicated. Blood 04/21/2025 6:18 AM CDT 04/21/2025 6:18 AM CDT Johnny Blanco DO LAB POCT ORDERABLES - D DENISE Final Result [facility] [address] Department [place] [address] * POCT glucose (04/21/2025 4:28 AM CDT) Glucose, POC 88 70 - 199 mg/dL Comment: For Glucose values <35 mg/dl when Hematocrit is >60 mg/dl,the test may not accurately detect significant hypoglycemia,and testing in the Laboratory should be considered if clinically indicated. Blood 04/21/2025 4:28 AM CDT 04/21/2025 4:28 AM CDT us [facility] Randall Wesley MD LAB POCT ORDERABL ES - DEVICE Final Result Performing Organization Address [facility] de Phone Number [facility] [address] [facility] [address] * POCT glucose (04/21/2025 2:09 AM CDT) Glucose, POC 84 70 - 199 mg/dL Comment: For Glucose values <35 mg/dl when Hematocrit is >60 mg/dl,the test may not accurately detect significant hypoglycemia,and testing in the Laboratory should be considered if clinically indicated. Blood 04/21/2025 2:09 AM CDT 04/21/2025 2:09 AM CDT us [facility] Randall Wesley MD LAB POCT ORDERABL ES - DEVICE Final Result Performing Organization Address [facility] de Phone Number [facility] [address] [facility] [address] * POCT glucose (04/21/2025 12:18 AM CDT) Glucose, POC 100 70 - 199 mg/dL Comment: For Glucose values <35 mg/dl when Hematocrit is >60 mg/dl,the test may not accurately detect significant hypoglycemia,and testing in the Laboratory should be considered if clinically indicated. Blood 04/21/2025 12:1 8 AM CDT 04/21/2025 12:18 AM CDT us [facility] Randall Wesley MD LAB POCT ORDERABL ES - DEVICE Final Result Performing Organization Address [facility] Co de Phone Number [facility] [address] [facility] [address] * POCT glucose (04/20/2025 10:23 PM CDT) [...] - DEVICE Final Result Performing Organization Address [facility] Co de Phone Number [facility] [address] [facility] [place], [place] [phone] * POCT glucose (04/20/2025 8:16 PM CDT) Glucose, POC 86 70 - 199 mg/dL Comment: For Glucose values <35 mg/dl when Hematocrit is >60 mg/dl,the test may not accurately detect significant hypoglycemia,and testing in the Laboratory should be considered if clinically indicated. Blood 04/20/2025 8:16 PM CDT 04/20/2025 8:16 PM CDT us [facility] Randall Wesley MD LAB POCT ORDERABL ES - DEVICE Final Result Performing Organization Address [facility] Co de Phone Number [facility] [address] [facility] [address] * POCT glucose (04/20/2025 6:05 PM CDT) [...] - DEVICE Final Result Performing Organization Address [facility] Co de Phone Number [facility] [address] [facility] [place], [place] [phone] * POCT glucose (04/20/2025 3:57 PM CDT) [...] [facility] de Phone Number [facility] [address] [facility] [place], [place] [phone] * POCT glucose (04/20/2025 11:36 AM CDT) Glucose, POC 80 70 - 199 mg/dL Comment: For Glucose values <35 mg/dl when Hematocrit is >60 mg/dl,the test may not accurately detect significant hypoglycemia,and testing in the Laboratory should be considered if clinically indicated. Blood 04/20/2025 11:3 6 AM CDT 04/20/2025 11:36 AM CDT us [facility] Randall Wesley MD LAB POCT ORDERABL ES - DEVICE Final Result Performing Organization Address [facility] Co de Phone Number [facility] [address] [facility] [place], [place] [phone] * hCG, blood, quantitative - Add on lab test (04/20/2025 9:37 AM CDT) Acceptable Yes Blood 04/20/2025 9:37 AM CDT 04/20/2025 9:37 AM CDT Narrative [facility] - 04/20/2025 9:37 AM CDT Name of Test->hCG, blood, quantitative us [facility] Randall Wesley MD LAB BLOOD ORDERAB LES Final Result Performing Organization Address [facility] Co de Phone Number [facility] [address] Department [place] [address] * Phosphorus - Add on lab test (04/20/2025 9:37 AM CDT) Acceptable Yes Blood 04/20/2025 9:37 AM CDT 04/20/2025 9:37 AM CDT Narrative [facility] 04/20/2025 9:37 AM CDT Name of Test->Phosphorus us [facility] Randall Wesley MD LAB BLOOD ORDERAB LES Final Result Performing Organization Address [facility]/[place] de Phone Number [facility] [address] [facility] [place], [place] [phone] * POCT glucose (04/20/2025 8:36 AM CDT) Glucose, POC 95 70 - 199 mg/dL Comment: For Glucose values <35 mg/dl when Hematocrit is >60 mg/dl,the test may not accurately detect significant hypoglycemia,and testing in the Laboratory should be considered if clinically indicated. Blood 04/20/2025 8:36 AM CDT 04/20/2025 8:36 AM CDT us [facility] Randall Wesley MD LAB POCT ORDERABL ES - DEVICE Final Result Performing Organization Address [facility] Co de Phone Number [facility] [address] Department [facility] [place], [place] [phone] * POCT glucose (04/20/2025 4:26 AM CDT) [...] - DEVICE Final Result Performing Organization Address City/[facility] Co de Phone Number [facility] [address] [facility] [place] [address] * Lactate (04/20/2025 12:55 AM CDT) Lactate 1.0 0.7 - 2.0 mmol/L Blood 04/20/2025 12:5 5 AM CDT 04/20/2025 12:59 AM CDT José Miguel Duff MD LAB BLOOD ORDERABLES Final Re sult Performing Organization Address City/[facility] Co de Phone Number [facility] [address] [facility] [place], [place] [phone] * Beta-hydroxybutyrate (04/20/2025 12:55 AM CDT) Beta-Hydroxybut yrate 0.1 <=0.5 mmol/L Blood 04/20/2025 12:5 5 AM CDT 04/20/2025 1:02 AM CDT José Miguel Duff MD LAB BLOOD ORDERABLES Final Re sult Performing Organization Address City/[facility] Co de Phone Number [facility] [address] Department [facility] [place], [place] [phone] * hCG, blood, quantitative (04/20/2025 12:55 AM CDT) [facility] hCG, quant <0.6 0.0 - 5.0 [...] AM CDT 04/20/2025 1:02 AM CDT us [facility] Randall Wesley MD LAB BLOOD ORDERAB LES Final Result [facility] [address] Department [place] [address] * Phosphorus (04/20/2025 12:55 AM CDT) [facility] Phosphorus, pl 3.8 2.3 - 4.5 mg/dL Blood 04/20/2025 12:5 5 AM CDT 04/20/2025 1:02 AM CDT us [facility] Randall Wesley MD LAB BLOOD ORDERAB LES Final Result [facility] [address] Department [place] [address] * POCT glucose (04/20/2025 12:06 AM CDT) [facility] Glucose, POC 107 70 - 199 mg/dL Comment: For Glucose values <35 mg/dl when Hematocrit is >60 mg/dl,the test may not accurately detect significant hypoglycemia,and testing in the Laboratory should be considered if clinically indicated. Blood 04/20/2025 12:0 6 AM CDT 04/20/2025 12:06 AM CDT us [facility] Randall Wesley MD LAB POCT ORDERABL ES - DEVICE Final Result [facility] [address] Department [facility] [place], [place] [phone] * POCT glucose (04/19/2025 7:36 PM CDT) [...] LOUISE CE Final Result Performing Organization Address [facility] Co de Phone Number [facility] [address] [place] [address] * C-peptide (04/19/2025 5:19 PM CDT) C-peptide 4.25 1.10 - 4.40 ng/mL Comment:Testing performed by : [facility], [address] [place]., [address] Blood 04/19/2025 5:19 PM CDT 04/19/2025 7:40 PM CDT us Omar Hearn MD LAB BLOOD ORDERABLES Final Res ult [facility] [address] Department [facility] [address] * POCT glucose (04/19/2025 5:17 PM CDT) [...] LOUISE CE Final Result Performing Organization Address [facility] Co de Phone Number [facility] [address] Department [place] [address] * POCT glucose (04/19/2025 3:54 PM CDT) [facility] Glucose, POC 87 70 - 199 mg/dL Comment: For Glucose values <35 mg/dl when Hematocrit is >60 mg/dl,the test may not accurately detect significant hypoglycemia,and testing in the Laboratory should be considered if clinically indicated. Blood 04/19/2025 3:54 PM CDT 04/19/2025 3:54 PM CDT Domingo Samson MD LAB POCT ORDERABLES - LOUISE CE Final Result Performing Organization Address [facility] Co de Phone Number [facility] [address] Department [place] [address] * Respiratory pathogen panel Nasopharyngeal (04/19/2025 3:50 PM CDT) [facility] Influenza A RNA Not Detected Not Detected [facility] Influenza B RNA Not Detected Not Detected [facility] RSV RNA Not Detected Not Detected [facility] COVID-19 RNA Not Detected Not Detected [facility] Coronavirus 229E RNA Not Detected Not Detected [facility] Coronavirus HKU1 RNA Not Detected Not Detected [facility] Coronavirus NL63 RNA Not Detected Not Detected [facility] Coronavirus OC43 RNA Not Detected Not Detected [facility] Adenovirus DNA Not Detected Not Detected [facility] Metapneumovirus RNA Not Detected Not Detected [facility] Rhinovirus/Enterov irus RNA Not Detected Not Detected [facility] Parainfluenza 1 RNA Not Detected Not Detected [facility] Parainfluenza 2 RNA Not Detected Not Detected [facility] Parainfluenza 3 RNA Not Detected Not Detected [facility] Parainfluenza 4 RNA Not Detected Not Detected [facility] B. pertussis DNA Not Detected Not Detected [facility] B. parapertussis DNA Not Detected Not Detected [facility] C. pneumoniae DNA Not Detected Not Detected [facility] M. pneumoniae DNA Not Detected Not Detected [facility] Comment: Interpretive Data The [employer] FilmArray Respiratory Panel (RP2.1) assay is a [...] assay has FDA clearance for testing of OPT[employer] TR[employer]ER swabs. The performance characteristics of this assay have been determined by [facility]. Current interpretive data was last revised on 2021. Nasopharyngeal 04/19/2025 3: 50 PM CDT 04/19/2025 3:59 PM CDT Narrative [facility] - 04/19/2025 4:51 PM CDT Is the Patient experiencing symptoms consistent with COVID?->No Surveillance testing for transplant patient?->No us Omar Hearn MD LAB MICROBIOLOGY - GENERAL ORD ERABLES Final Result [facility] [address] Department [place] [address] MBC * POCT glucose (04/19/2025 2:31 PM [...] DEVICE F inal Result Performing Organization Address City/[facility]/ZIP Co de Phone Number [facility] [address] Department of [place] [address] * POCT glucose (04/19/2025 1:38 PM CDT) [...] DEVICE F inal Result Performing Organization Address [facility] Co de Phone Number [facility] [address] Mcelroy [facility] [place] [address] * POCT glucose (04/19/2025 1:02 PM CDT) Glucose, POC 85 70 - 199 mg/dL Comment: For Glucose values <35 mg/dl when Hematocrit is >60 mg/dl,the test may not accurately detect significant hypoglycemia,and testing in the Laboratory should be considered if clinically indicated. Blood 04/19/2025 1:02 PM CDT 04/19/2025 1:02 PM CDT [facility] Unknown LAB POCT ORDERABLES - DEVICE F inal Result Performing Organization Address [facility] de Phone Number [facility] [address] Department [place] [address] * ECG 12 lead (04/19/2025 12:59 PM CDT) 04/19/2025 12:5 9 PM CDT Narrative [facility] - 04/19/2025 1:47 PM CDT Vent Rate: 79 bpm RR Interval: 755 msec [place] Interval: 140 msec QRS Duration: 92 msec QT Interval: 344 msec QTC Interval: 379 msec P-R-T [place]: 67 - 72 - 51 degrees IMPRESSION: SINUS RHYTHM POSSIBLE LEFT ATRIAL ENLARGEMENT BORDERLINE ECG Electronically Signed By: Bo Jansen [facility] Card Domingo Samson MD ECG ORDERABLES Final Resu lt Performing Organization Address [facility] Co de Phone Number [facility] [facility] * eGFR (04/19/2025 12:55 PM CDT) Pathologist [facility] eGFR >90 >=60 mL/min/1. 73 m2 Comment: [...] BLOOD ORDERABLES Final Result Performing Organization Address City/[facility]/ZIP Co de Phone Number [facility] [address] [employer] [place], [place] [id number] * Thyroid Function [place] (04/19/2025 12:55 PM CDT) Pathologist [facility] TSH 1.02 0.30 - 4.20 mcIUnit/mL Blood 04/19/2025 12:5 5 PM CDT 04/19/2025 1:22 PM CDT Domingo Samson MD LAB BLOOD ORDERABLES Final Result [facility] [address] Department [employer] [place], [place] [id number] * CBC without differential (04/19/2025 12:55 PM CDT) WBC 8.05 3.80 - 9.90 K/cumm Hgb 14.2 11.9 - 15.5 g/dL [facility] Hct 41.6 35.6 - 45.5 % [facility] Plt 326 150 - 400 K/cumm [facility] MPV 10.1 9.1 - 12.3 fL [facility] RBC 4.60 3.90 - 5.20 M/cumm [facility] MCV 90.4 81.3 - 96.4 fL [facility] MCH 30.9 27.1 - 33.3 pg [facility] MCHC 34.1 32.3 - 35.7 g/dL [facility] RDW CV 12.2 11.1 - 14.9 % [facility] RDW SD 39.7 35.7 - 48.1 fL [facility] NRBC abs 0.00 0.00 - 0.01 K/cumm [facility] Blood 04/19/2025 12:5 5 PM CDT 04/19/2025 1:22 PM CDT Domingo Samson MD LAB BLOOD ORDERABLES Final Result Performing Organization Address [facility] de Phone Number [facility] [address] [employer] [place], [place] [id number] * Hemoglobin A1c (04/19/2025 12:55 PM CDT) [facility] Hgb A1C 5.2 4.0 - 5.6 % Estimated Average Glucose 103 mg/dL [facility] Comment: The ADA recommends reporting an estimated Average Glucose (eAG) with all Hemoglobin A1c results using the equation derived from a study of 507 normal and diabetic adults. Minority populations were underrepresented and children were not included. (Diabetes Care 31:2692-4337, 2008). The eAG is not equivalent to a fasting glucose. Blood 04/19/2025 12:5 5 PM CDT 04/19/2025 1:22 PM CDT Domingo Samson MD LAB BLOOD ORDERABLES Final Result Performing Organization Address City/[facility]/ZIP Co de Phone Number [facility] [address] [facility] [employer] [place], [place] [id number] * Cortisol (04/19/2025 12:55 PM CDT) Pathologist [facility] Cortisol 10.5 4.8 - 19.5 mcg/dl Blood 04/19/2025 12:5 5 PM CDT 04/19/2025 1:22 PM CDT Domingo Samson MD LAB BLOOD ORDERABLES Final Result [facility] [address] Department [place] [address] * (ABNORMAL) Comprehensive metabolic panel (04/19/2025 12:55 PM CDT) [facility] Sodium 139 135 - 145 mmol/L Potassium, pl 4.4 3.3 - 4.9 mmol/L [facility] Comment:Hemolyzed; potassium value may be falsely elevated by as much as 0.6 - 1.0 mmol/L. Suggest redraw and reanalysis Chloride 104 97 - 110 mmol/L [facility] CO2 20(L) 22 - 32 mmol/L [facility] Anion gap 15 2 - 15 mmol/L [facility] BUN 18 6 - 25 mg/dL [facility] Creatinine 0.53(L) 0.60 - 1.10 mg/dL [facility] Glucose 86 70 - 199 mg/dL [facility] Comment: Interpretive Data Fasting glucose >/= [...] 2022. Calcium 9.0 8.5 - 10.3 mg/dL [facility] Bilirubin, total 0.2 0.1 - 1.2 mg/dL [facility] Protein, pl 7.0 6.5 - 8.5 g/dL [facility] Albumin 4.2 3.5 - 5.0 g/dL [facility] Alk phos 19(L) 40 - 130 Units/L [facility] ALT 18 7 - 45 Units/L [facility] Comment:Moderately Hemolyzed Specimen AST 31 10 - 45 Units/L [facility] Comment:Moderately Hemolyzed Specimen Blood 04/19/2025 12:5 5 PM CDT 04/19/2025 1:22 PM CDT Domingo Samson MD LAB BLOOD ORDERABLES Final Result Performing Organization Address [facility] Co de Phone Number [facility] [address] Department [place] [address] * POCT glucose (04/19/2025 12:54 PM CDT) [facility] Glucose, POC 87 70 - 199 mg/dL Comment: For Glucose values <35 mg/dl when Hematocrit is >60 mg/dl,the test may not accurately detect significant hypoglycemia,and testing in the Laboratory should be considered if clinically indicated. Blood 04/19/2025 12:5 4 PM CDT 04/19/2025 12:54 PM CDT Result [facility] [employer] Unknown LAB POCT ORDERABLES - DEVICE F inal Result Performing Organization Address [facility] Co de Phone Number [facility] [address] Department [place] [address] from Last 3 Months Insurance [facility]/PPO Address: [address] [address] [place] [address] [facility] H[facility]/PPO Address: [address] [place] [id number] Advance Directives For more information, please contact: [phone] * Full Code (Latest Code Status on File) Date Activated Date Inactivated Comments 04/19/2025 10:05 PM 04/24/2025 7:10 PM Care Teams Civil Drafter Relationship Specialty Start Date End Date Yolande Rodriguez NP [address] [place] [address] PCP - General Nurse Practitioner 04/09/25
== END 2025-06-30 12:18 | disposition home or self-care (01) ==
PROVIDERS: PCP Nurse Practitioner Family; Visit Provider Psychiatry & Neurology Neurology
DX: M47.814 Spondylosis without myelopathy or radiculopathy, thoracic region (principal); M47.812 Spondylosis without myelopathy or radiculopathy, cervical region; G35.D Multiple sclerosis, unspecified
CPT/HCPCS: 72156; 72157; A9577